=== PATIENT | male | born 1955 | race Caucasian/White ===

== ENCOUNTER 2017-05-05 12:55 | Emergency (ER) | payer OTHER ==
[~2017-05-05] VITALS: Ht 165.1 cm; Wt 68.0 kg
[~2017-05-05 12:55] MED LIST: ASPI325T PO; ATOR40TA PO; ENAL10TA7 PO; HYDR-2768 PO; HYDR25TA35 PO; LANTUS2P SC; METF500 PO; VERA120T3 PO
[2017-05-05 13:01] VITALS: BP 204/101; PULSE 113; RESP 20; TEMP 99.8; O2SAT 85
[2017-05-05] MEDS ORDERED: cloNIDine HCL 0.1 MG TAB PO ONE (13:45)
[2017-05-05] MEDS ORDERED: VERA120T3 PO (13:46)
[2017-05-05] MEDS ORDERED: IBUP1TAB7 PO (13:46)
[2017-05-05] MEDS ORDERED: HYDR12.57 PO (13:46)
[2017-05-05] MEDS ORDERED: SITA50 PO (13:46)
[2017-05-05] MEDS ORDERED: METF1000 PO (13:46)
--- NOTE | 2017-05-05 13:46 | PD ---
HPI Chief Complaint: Cold / Flu Symptoms Time Seen by Provider: 13:42 Travel History International Travel<30 days: No Contact w/Intl Traveler<30days: No Traveled to known affect area: No History of Present Illness HPI This 62-year-old male says he has not felt well for a couple of days. He's had a sore throat and cough. He has myalgias and generalized fatigue. He's been sleeping a lot. He is not aware of fever. He smokes occasionally area he has a history of hypertension. He was on verapamil twice a day but he cut back to once a day because he started taking beet root and thought that would decrease his need for verapamil. He is not having chest pain. PFSH Past Medical History Cancer: No Cardiovascular Problems: Yes Cerebrovascular Accident: Yes (X2) Diabetes: Yes Diminished Hearing: No Hypertension: Yes Musculoskeletal: No Immunizations Current: Yes Past Surgical History Other Surgery: Yes (NOSE REPAIR, STENTS IN LEGS AFTER STROKE) Social History Alcohol Use: No Tobacco Use: Yes (10 cig/day) Substance Use: No Allergies-Medications (Allergen,Severity, Reaction): Coded Allergies: No Known Allergies (Unverified Adverse Reaction, Unknown, 05/05/17) Reported Meds & Prescriptions Reported Meds & Active Scripts Active Reported Ibuprofen 800 Mg Tab 800 Mg PO QID Hydrochlorothiazide 12.5 Mg Cap 12.5 Mg PO DAILY Verapamil (Verapamil HCl) 120 Mg Tab 120 Mg PO BID Januvia (Sitagliptin Phosphate) 50 Mg Tab 50 Mg PO DAILY Metformin (Metformin HCl) 1,000 Mg Tab 1,000 Mg PO BIDPC Review of Systems General / Constitutional: Positive: Chills, No: Fever Eyes: No: Diploplia, Blurred Vision HENT: Positive: Sore Throat, No: Headaches, Vertigo Cardiovascular: No: Chest Pain or Discomfort, Palpitations Respiratory: Positive: Cough, No: Shortness of Breath Gastrointestinal: No: Vomiting, Diarrhea Genitourinary: No: Urgency, Frequency Musculoskeletal: Positive: Myalgias Skin: No Rash Neurologic: Positive: Weakness Endocrine: No: Heat Intolerance Hematologic/Lymphatic: No: Easy Bruising Physical Exam Narrative GENERAL: Well-developed male SKIN: Focused skin assessment warm/dry. HEAD: Atraumatic. Normocephalic. EYES: Pupils equal and round. No scleral icterus. No injection or drainage. ENT: No nasal bleeding or discharge. Mucous membranes pink and moist. NECK: Trachea midline. No JVD. CARDIOVASCULAR: Regular rate and rhythm. No murmur appreciated. RESPIRATORY: No accessory muscle use. There are a few basilar rales. Breath sounds equal bilaterally. GASTROINTESTINAL: Abdomen soft, non-tender, nondistended. Hepatic and splenic margins not palpable. MUSCULOSKELETAL: No obvious deformities. No clubbing. No cyanosis. No edema. NEUROLOGICAL: Awake and alert. No obvious cranial nerve deficits. Motor grossly within normal limits. Normal speech. PSYCHIATRIC: Appropriate mood and affect; insight and judgment normal. Data Data Last Documented VS Vital Signs Date Time Temp Pulse Resp B/P (MAP) Pulse Ox O2 Delivery O2 Flow Rate FiO2 05/05/17 14:45 88 18 162/86 (111) 97 Nasal Cannula 2.00 05/05/17 13:01 99.8 Orders Orders Influenzae A/B Antigen (05/05/17 13:43) Chest, Single Ap (05/05/17 13:43) Clonidine (Catapres) (05/05/17 13:45) Electrocardiogram (05/05/17 14:10) Complete Blood Count With Diff (05/05/17 14:10) Comprehensive Metabolic Panel (05/05/17 14:10) Troponin I (05/05/17 14:10) B-Type Natriuretic Peptide (05/05/17 14:10) Furosemide Inj (Lasix Inj) (05/05/17 14:15) Labs Laboratory Tests Test 05/05/17 14:42 White Blood Count 5.4 TH/MM3 Red Blood Count 4.49 MIL/MM3 Hemoglobin 13.2 GM/DL Hematocrit 39.7 % Mean Corpuscular Volume 88.4 FL Mean Corpuscular Hemoglobin 29.3 PG Mean Corpuscular Hemoglobin Concent 33.2 % Red Cell Distribution Width 13.0 % Platelet Count 148 TH/MM3 Mean Platelet Volume 8.6 FL Neutrophils (%) (Auto) 85.1 % Lymphocytes (%) (Auto) 6.2 % Monocytes (%) (Auto) 8.1 % Eosinophils (%) (Auto) 0.1 % Basophils (%) (Auto) 0.5 % Neutrophils # (Auto) 4.7 TH/MM3 Lymphocytes # (Auto) 0.3 TH/MM3 Monocytes # (Auto) 0.4 TH/MM3 Eosinophils # (Auto) 0.0 TH/MM3 Basophils # (Auto) 0.0 TH/MM3 CBC Comment DIFF FINAL Differential Comment Blood Urea Nitrogen 16 MG/DL Creatinine 0.96 MG/DL Random Glucose 144 MG/DL Total Protein 6.4 GM/DL Albumin 2.6 GM/DL Calcium Level 8.3 MG/DL Alkaline Phosphatase 138 U/L Aspartate Amino Transf (AST/SGOT) 49 U/L Alanine Aminotransferase (ALT/SGPT) 32 U/L Total Bilirubin 0.5 MG/DL Sodium Level 137 MEQ/L Potassium Level 5.2 MEQ/L Chloride Level 103 MEQ/L Carbon Dioxide Level 27.5 MEQ/L Anion Gap 7 MEQ/L Estimat Glomerular Filtration Rate 79 ML/MIN Troponin I 0.10 NG/ML B-Type Natriuretic Peptide 1197 PG/ML MDM Medical Decision Making Medical Screen Exam Complete: Yes Emergency Medical Condition: Yes Medical Record Reviewed: Yes Differential Diagnosis Differential includes viral syndrome, CHF, COPD Narrative Course Chest x-ray shows enlarged heart and increased interstitial fluid. His BNP is over thousand. His troponin is 0.10. Impression is congestive heart failure. On further questioning the patient does think that he's had this before and has been on Lasix in the past though he is not on it now.Told the patient he should be admitted to the hospital for further evaluation but he is adamant that he cannot stay at this time. His potassium is 5.2. He will be released on Lasix by recommend give him a potassium supplement because of his elevation. I have encouraged him to follow up with Dr. Jared Porter as soon as possible or return to the ER if any problem Diagnosis Primary Impression: CHF (congestive heart failure) Scripts Furosemide (Lasix) 40 Mg Tab 40 MG PO DAILY, #30 TAB 0 Refills Prov: Carlos Manuel Montes De Oca MD 05/05/17 Disposition: DISCHARGE HOME Condition: Stable Carlos Manuel Montes De Oca MD May 05, 2017 13:46
--- NOTE | 2017-05-05 14:08 | RADRPT ---
EXAM DATE/TIME: 05/05/2017 13:52 [facility] COMPARISON: CHEST SINGLE AP, February 13, 2016, 17:04. INDICATIONS : Flu like symptoms. MEDICAL HISTORY : Stroke. Hypertension Diabetes mellitus type II. SURGICAL HISTORY : None. ENCOUNTER: Initial ACUITY: 3 days PAIN SCORE: 0/10 LOCATION: Bilateral chest FINDINGS: A single view of the chest demonstrates the lungs to be symmetrically aerated without evidence of mas s, infiltrate or effusion. There is cardiomegaly and interstitial densities. The cardiomediastinal c ontours are unremarkable. Osseous structures are intact. CONCLUSION: 1. Cardiomegaly and interstitial densities could be interstitial edema versus interstitial infiltrate . Marcel Jones MD on May 05, 2017 at 14:05 Board Certified Radiologist. This report was verified electronically.
[2017-05-05] MEDS ORDERED: FUROSEMIDE 40 MG/4 ML VIAL IV PUSH ONE (14:15)
[2017-05-05 14:45] VITALS: BP 162/86; PULSE 88; RESP 18; O2SAT 97
[2017-05-05 14:58] LABS: CHLORIDE 103 MEQ/L (98-107); SODIUM (NA) 137 MEQ/L (136-145)
[2017-05-05 15:00] LABS: AUTOMATED NEUTROPHIL # 4.7 TH/MM3 (1.8-7.7); BASOPHIL % 0.5 % (0.0-2.0); EOSINOPHIL % 0.1 % (0.0-4.0); HEMATOCRIT 39.7 % (39.0-51.0); HEMOGLOBIN 13.2 GM/DL (13.0-17.0); LYMPH % 6.2 % (9.0-44.0); LYMPHOCYTE # 0.3 TH/MM3 (1.0-4.8); MEAN CELL VOLUME 88.4 FL (80.0-100.0); MEAN CORPUSCULAR HEMOGLOBIN 29.3 PG (27.0-34.0); MEAN CORPUSCULAR HGB CONC 33.2 % (32.0-36.0); MEAN PLATELET VOLUME 8.6 FL (7.0-11.0); MONO % 8.1 % (0.0-8.0); MONOCYTE # 0.4 TH/MM3 (0-0.9); NEUT % 85.1 % (16.0-70.0); PLATELET COUNT 148 TH/MM3 (150-450); RED BLOOD COUNT 4.49 MIL/MM3 (4.50-5.90); WHITE BLOOD COUNT 5.4 TH/MM3 (4.0-11.0)
[2017-05-05 15:02] LABS: ALBUMIN 2.6 GM/DL (3.4-5.0); CALCIUM 8.3 MG/DL (8.5-10.1)
[2017-05-05 15:03] LABS: BICARBONATE 27.5 MEQ/L (21.0-32.0); BLOOD UREA NITROGEN 16 MG/DL (7-18); GLUCOSE,RANDOM 144 MG/DL (74-106)
[2017-05-05 15:05] LABS: ALT (GPT) 32 U/L (12-78); AST (GOT) 49 U/L (15-37)
[2017-05-05 15:06] LABS: CREATININE 0.96 MG/DL (0.60-1.30); GLOMERULAR FILTRATION RATE 79 ML/MIN (>89)
[2017-05-05 15:07] LABS: TOTAL BILIRUBIN ADULT 0.5 MG/DL (0.2-1.0); TOTAL PROTEIN 6.4 GM/DL (6.4-8.2)
[2017-05-05 15:08] LABS: ALKALINE PHOSPHATASE 138 U/L (45-117)
[2017-05-05] MEDS ORDERED: FURO1TAB60 PO (15:35)
[2017-05-05 15:48] VITALS: BP 173/85
--- NOTE | 2017-05-06 13:35 | EKG ---
Date Performed: 05/05/2017 Time Performed: 14:33:43 PTAGE: 62 years EKG: Sinus rhythm LEFT ATRIAL ABNORMALITY POOR R-WAVE PROGRESSION CANNOT EXCLUDE ANTEROSEPTAL INFARCT ST-T WAVE CHANGE S MAY BE SECONDARY TO LEFT VENTRICULAR HYPERTROPHY, CANNOT EXCLUDE ISCHEMIA ABNORMAL ECG Compared to PREVIOUS TRACING , there is variation in the ST-T abnormalities. Clinical correlation is needed. PREVIOUS TRACIN02/13/2016 16.45 DOCTOR: Steve Haro Interpretating Date/Time 05/06/2017 13:18:46
== END 2017-05-05 15:52 | disposition home or self-care (01) ==
LOC: PHED 12:55
DX: I50.9 Heart failure, unspecified (principal); R07.0 Pain in throat; R05 Cough; M79.1 Myalgia; R94.31 Abnormal electrocardiogram [ECG] [EKG]; I10 Essential (primary) hypertension; E11.9 Type 2 diabetes mellitus without complications; F17.200 Nicotine dependence, unspecified, uncomplicated; Z79.84 Long term (current) use of oral hypoglycemic drugs
CPT/HCPCS: 71010; 80053; 83880; 84484; 85025; 87804; 93005; 96374; 99285; J1940

== ENCOUNTER 2017-07-24 15:35 | Emergency (ER) | payer SELFPAY ==
[~2017-07-24] VITALS: Ht 162.6 cm; Wt 64.8 kg
[~2017-07-24 15:35] MED LIST changes: -ASPI325T PO; -ATOR40TA PO; -ENAL10TA7 PO; +FURO1TAB60 PO; -HYDR-2768 PO; +HYDR12.57 PO; -HYDR25TA35 PO; +IBUP1TAB7 PO; -LANTUS2P SC; +METF1000 PO; -METF500 PO; +SITA50 PO
[2017-07-24 15:46] VITALS: BP 223/107; PULSE 98; RESP 16; TEMP 97.5; O2SAT 97
[2017-07-24] MEDS ORDERED: MONT4CHW2 CHEW (16:02)
[2017-07-24] MEDS ORDERED: ASPI-183 PO (16:02)
--- NOTE | 2017-07-24 16:37 | RADRPT ---
EXAM DATE/TIME: 07/24/2017 16:25 [facility] COMPARISON: No previous studies available for comparison. INDICATIONS : Right proximal tibia pain after scrapping it on a piece of metal. MEDICAL HISTORY : Venous insufficiency. Cardiovascular problems. Cerebrovascular accident. Diabetic. Hypertension . SURGICAL HISTORY : Nasal surgery. Lower extremity stent. ENCOUNTER: Initial ACUITY: 1 day PAIN SCORE: 9/10 LOCATION: Right tibia FINDINGS: Two view examination of the right tibia demonstrates no evidence of fracture or dislocation. Bony mi neralization is normal. The soft tissue structures are intact. CONCLUSION: Unremarkable examination of the right tibia. Soft tissue defect superficial to the tibia proximally without underlying bony injury or foreign body. Shant Guerra MD on July 24, 2017 at 16:36 Board Certified Radiologist. This report was verified electronically.
--- NOTE | 2017-07-24 17:12 | PD ---
HPI Chief Complaint: Laceration/Skin Injury Time Seen by Provider: 16:08 Travel History International Travel<30 days: No Contact w/Intl Traveler<30days: No Traveled to known affect area: No History of Present Illness HPI 52-year-old male here with laceration to his right lower extremity. He reports the area was cut by a sharp edge of a broken toilet in his home 3 hours ago. He denies paresthesia or weakness of the extremity. Tetanus immunization is up- to-date. He has mild pain at the site of laceration. No aggravating or alleviating factors. [facility] Past Medical History Medical History: Denies Significant Hx Cancer: No Cardiovascular Problems: Yes Cerebrovascular Accident: Yes Diabetes: Yes Patient Takes Glucophage: Yes Diminished Hearing: No Hypertension: Yes Immunizations Current: Yes Past Surgical History Other Surgery: Yes (NOSE REPAIR, STENTS IN LEGS AFTER STROKE, carotid artery stent) Social History Alcohol Use: No Tobacco Use: Yes (05/27 ppd) Substance Use: No Allergies-Medications (Allergen,Severity, Reaction): Coded Allergies: No Known Allergies (Unverified Adverse Reaction, Unknown, 07/24/17) Reported Meds & Prescriptions Reported Meds & Active Scripts Active Reported Singulair (Montelukast Sodium) 4 Mg Chew Unknown Dose CHEW HS Aspirin 325 Mg Tab 325 Mg PO DAILY Hydrochlorothiazide 12.5 Mg Cap 12.5 Mg PO DAILY Verapamil (Verapamil HCl) 120 Mg Tab 120 Mg PO BID Januvia (Sitagliptin Phosphate) 50 Mg Tab 50 Mg PO DAILY Metformin (Metformin HCl) 1,000 Mg Tab 1,000 Mg PO BIDPC Review of Systems Except as stated in HPI: all other systems reviewed are Neg Physical Exam Narrative GENERAL: Alert and well-appearing 62-year-old male SKIN: Warm and dry. Right lower extremity: 2.5 CM laceration right lower extremity over the anterior aspect of the proximal tibia. About 3 finger widths from the knee. I do not suspect joint involvement. No tendon or vascular injury identified. No foreign body. Patient is able to flex and extend the knee without difficulty. Normal Sensation distally. 2+ dorsal pedis pulse. Brisk cap refill HEAD: Normocephalic. EYES: No injection or drainage. NECK: Supple CARDIOVASCULAR: Regular rate and rhythm without murmurs, gallops, or rubs. RESPIRATORY: Breath sounds equal bilaterally. No accessory muscle use. MUSCULOSKELETAL: No cyanosis, or edema. Data Data Last Documented VS Vital Signs Date Time Temp Pulse Resp B/P (MAP) Pulse Ox O2 Delivery O2 Flow Rate FiO2 07/24/17 15:46 97.5 98 16 223/107 (145) 97 Orders Orders Tibia/Fibula (Ap/Lat) (07/24/17 ) MDM Medical Decision Making Medical Screen Exam Complete: Yes Emergency Medical Condition: Yes Differential Diagnosis Laceration, tendon or fascial injury, retained foreign body Narrative Course 62-year-old male here with laceration to the right lower extremity. Extremity is neurovascularly intact. X-ray is negative for foreign body. Laceration repair performed. Patient tolerated procedure well. Procedures Procedure Narrative LACERATION LOCATION: Right lower extremity proximal anterior tibia LENGTH: 2.5 CM NUMBER OF STITCHES/KRISTIN: 6 REPAIR: The area of the laceration was prepped with Betadine and sterilely draped. The laceration was infiltrated with 1% lidocaine with epi. The wound was copiously irrigated and explored without evidence of foreign body, tendon injury or neurovascular injury. The wound was closed using 4-0 Prolene. This was a single layer repair. A sterile dressing was applied. The patient was advised to keep the dressing clean and dry. Patient tolerated the procedure well. Diagnosis Primary Impression: Laceration of right lower extremity Qualified Codes: S81.811A - Laceration without foreign body, right lower leg, initial encounter Referrals: Primary Care Physician Additional Instructions: Sutures need to be removed in 10 days. Wash the area daily with soap and water. Lila Mosqueda Jul 24, 2017 17:12
== END 2017-07-24 17:25 | disposition home or self-care (01) ==
LOC: PHEFT 15:35
DX: S81.811A Laceration without foreign body, right lower leg, initial encounter (principal); W25.XXXA Contact with sharp glass, initial encounter; E11.9 Type 2 diabetes mellitus without complications; I10 Essential (primary) hypertension; F17.210 Nicotine dependence, cigarettes, uncomplicated; Z86.73 Personal history of transient ischemic attack (TIA), and cerebral infarction without residual deficits
CPT/HCPCS: 12001; 73590

== ENCOUNTER 2017-08-04 18:17 | Emergency (ER) | payer SELFPAY ==
[~2017-08-04] VITALS: Ht 162.6 cm; Wt 66.7 kg
[~2017-08-04 18:17] MED LIST changes: +ASPI-183 PO; -FURO1TAB60 PO; -IBUP1TAB7 PO; +MONT4CHW2 CHEW
[2017-08-04 18:21] VITALS: BP 206/113; PULSE 100; RESP 16; TEMP 98.1; O2SAT 98
--- NOTE | 2017-08-04 18:27 | PD ---
HPI Chief Complaint: Wound/Suture/Staple Re-Check Time Seen by Provider: 18:25 Travel History International Travel<30 days: No Contact w/Intl Traveler<30days: No Traveled to known affect area: No History of Present Illness HPI 62-year-old male that presents to the ED for evaluation of suture removal. Patient was seen here about 2 weeks ago for a laceration she suffered to his right cook. Patient had 6 sutures placed and has been having no issues since. Per patient he is ready for them to come on. No other medical issues. No new injuries. No fevers chills or sweats. No redness. PFSH Past Medical History Cancer: No Cardiovascular Problems: Yes Cerebrovascular Accident: Yes Diabetes: Yes Diminished Hearing: No Hypertension: Yes Immunizations Current: Yes ?: Not Past Surgical History Other Surgery: Yes (NOSE REPAIR, STENTS IN LEGS AFTER STROKE, carotid artery stent) Social History Alcohol Use: No Tobacco Use: Yes (05/27 ppd) Substance Use: No Allergies-Medications (Allergen,Severity, Reaction): Coded Allergies: No Known Allergies (Unverified Adverse Reaction, Unknown, 07/24/17) Reported Meds & Prescriptions Reported Meds & Active Scripts Active Reported Singulair (Montelukast Sodium) 4 Mg Chew Unknown Dose CHEW HS Aspirin 325 Mg Tab 325 Mg PO DAILY Hydrochlorothiazide 12.5 Mg Cap 12.5 Mg PO DAILY Verapamil (Verapamil HCl) 120 Mg Tab 120 Mg PO BID Januvia (Sitagliptin Phosphate) 50 Mg Tab 50 Mg PO DAILY Metformin (Metformin HCl) 1,000 Mg Tab 1,000 Mg PO BIDPC Review of Systems Except as stated in HPI: all other systems reviewed are Neg Physical Exam Narrative GENERAL: SKIN: Warm and dry. Patient has a well-healed laceration on the mid cook. Does appear to be somewhat to have been dehisced even with the sutures in place. Patient does have some scabbing noted. 6 sutures noted. No sign of erythema or mass or infection. HEAD: Atraumatic. Normocephalic. EYES: Pupils equal and round. No scleral icterus. No injection or drainage. ENT: No nasal bleeding or discharge. Mucous membranes pink and moist. NECK: Trachea midline. No JVD. CARDIOVASCULAR: Regular rate and rhythm. RESPIRATORY: No accessory muscle use. Clear to auscultation. Breath sounds equal bilaterally. GASTROINTESTINAL: Abdomen soft, non-tender, nondistended. Hepatic and splenic margins not palpable. MUSCULOSKELETAL: Extremities without clubbing, cyanosis, or edema. No obvious deformities. NEUROLOGICAL: Awake and alert. No obvious cranial nerve deficits. Motor grossly within normal limits. Five out of 5 muscle strength in the arms and legs. Normal speech. PSYCHIATRIC: Appropriate mood and affect; insight and judgment normal. Data Data Last Documented VS Vital Signs Date Time Temp Pulse Resp B/P (MAP) Pulse Ox O2 Delivery O2 Flow Rate FiO2 08/04/17 18:21 98.1 100 16 206/113 (144) 98 Orders Orders Ed Discharge Order (08/04/17 18:33) MDM Medical Decision Making Medical Screen Exam Complete: Yes Emergency Medical Condition: Yes Medical Record Reviewed: Yes Differential Diagnosis suture removal vs wound check vs normal exam Narrative Course 62-year-old male that presents to the ED for evaluation of suture removal. Patient was properly examined and was found to have signs and symptoms consistent appears to be suture removal. All 6 sutures were removed by me using a suture removal kit. Patient tolerated procedure well. Wound did dehisce somewhat with this appears to be already from the healing. I put a Steri-Strip on it. To help keep this under control. Patient was told to continue doing wound care. Follow with PCP. See ED worsening symptoms. Blood pressure was found to be high here and this is likely secondary to him not taking his blood pressure medication until about 15 minutes before coming. Patient has no symptoms. I spoke with my attending who agrees the patient can go home. Diagnosis Primary Impression: Visit for suture removal Patient Instructions: General Instructions Additional Instructions: Wound care daily with soap and water. You can apply bandaid if needed. Meoderma OTC for scarring if needed. Avoid sun exposure for 2 months as the sun could make scar darker and more noticeable. See ED if worst. Med/Other Pt SpecificInfo: No Change to Meds, Wound Care Disposition: DISCHARGE HOME Condition: Stable Alli Rawls Aug 04, 2017 18:27
[2017-08-04 18:39] VITALS: BP 210/110
== END 2017-08-04 18:40 | disposition home or self-care (01) ==
LOC: PHEFT 18:17
DX: Z48.02 Encounter for removal of sutures (principal)
CPT/HCPCS: 99281

== ENCOUNTER 2018-04-01 12:10 | Inpatient (IN) ==
--- NOTE | 2018-04-01 12:33 | ED ---
HPI General Chief complaint: Stroke Alert Stated complaint: stroke alert Time Seen by Provider: 04/01/18 12:15 Source: patient Mode of arrival: ambulatory Limitations: no limitations History of Present Illness HPI narrative: 63-year-old male patient with history of hypertension, presents to the ER today brought in by EMS as a stroke alert. Apparently patient had driven himself to [place] and felt like something was not right about half an hour prior to neighbors calling EMS, and he was found in his car sitting and disoriented, having difficulty speaking according to EMS. He is now awake, alert, oriented in the ER and able to speak. He states that he is not sure what happened. He just did not feel right. He denies any numbness or weakness. He denies any chest pains, or other issues. Related Data Home Medications Medication Instructions Recorded Confirmed aspirin 325 mg PO DAILY 04/01/18 04/01/18 carvedilol [Coreg] 3.125 mg PO BID 04/01/18 04/01/18 hydrochlorothiazide 25 mg PO DAILY 04/01/18 04/01/18 metformin 500 mg PO BID 04/01/18 04/01/18 Allergies Allergy/AdvReac Type Severity Reaction Status Date / Time No Known Allergies Allergy Verified 04/01/18 12:15 Review of Systems ROS: all other systems reviewed are negative [facility] Medical History Medical History Diabetes (Acute) HTN (hypertension) (Acute) No significant past surgical history (Acute) Stroke (Acute) Social History Social History Substance History: No History of Abuse Second Hand Smoke Exposure: No Smoking Status: Never smoker How Often Do You Have a Drink Containing Alcohol: Never Recent Travel in [facility] within the Last 8 Weeks: No Recent Out of Country Travel within the Last 8 Weeks: No Exam Narrative Exam Narrative: GENERAL: Well-developed elderly white male patient currently in mild distress. Awake and oriented x3. SKIN: Focused skin assessment warm/dry. HEAD: Atraumatic. Normocephalic. EYES: Pupils equal and round. No scleral icterus. No injection or drainage. ENT: No nasal bleeding or discharge. Mucous membranes pink and moist. NECK: Trachea midline. No JVD. CARDIOVASCULAR: Regular rate and rhythm. No murmur appreciated. RESPIRATORY: No accessory muscle use. Clear to auscultation. Breath sounds equal bilaterally. GASTROINTESTINAL: Abdomen soft, non-tender, nondistended. Hepatic and splenic margins not palpable. MUSCULOSKELETAL: No obvious deformities. No clubbing. No cyanosis. No edema. NEUROLOGICAL: Awake and alert. No obvious cranial nerve deficits. Motor grossly within normal limits. Normal speech. No pronator drift. PSYCHIATRIC: Appropriate mood and affect; insight and judgment normal. Course Initial Documented Vital Signs Temperature 97.9 F 04/01/18 12:10 Pulse Rate 66 04/01/18 12:10 Respiratory Rate 16 04/01/18 12:10 Blood Pressure 221/106 H 04/01/18 12:10 Pulse Oximetry 96 04/01/18 12:10 Last Documented Vital Signs Temperature 97.8 F 04/01/18 14:03 Pulse Rate 68 04/01/18 14:03 Respiratory Rate 16 04/01/18 14:03 Blood Pressure 148/64 H 04/01/18 14:03 Pulse Oximetry 98 04/01/18 14:03 NIH Stroke Scale NIH Stroke Scale Level of Consciousness: 0-Alert Orientation Questions: 0-Answers both correct Responds to Commands: 0-Both tasks correct Gaze Eye Movement: 0-Horizontal movement WNL Visual Waller: 0-No visual field defect Facial Movement: 0-Normal Motor Functions Arm LEFT: 0-No drift Motor Functions Arm RIGHT: 0-No drift Motor Functions Leg LEFT: 0-No drift Motor Functions Leg RIGHT: 0-No drift Limb Ataxia: 0-No ataxia Sensory Loss: 0-No sensory loss Best Language: 0-Normal Articulation: 0-Normal Extinction or Inattention Sensory: 0-Absent Total: 0 Medical Decision Making [facility] Narrative Medical decision making narrative: His neurological symptoms have completely resolved by the time he is in the ER. His blood pressure was fairly elevated and a Cardene drip was initiated in the ER. His CAT scan of the brain did not show any signs of acute intracranial processes. He was evaluated by Dr. Mckinley and he had recommended a CTA as well and that was all negative as well. However, he signs of previous strokes. Aspirin was given as per discussion with Dr. Mckinley. His lab work returned showing significant elevation of troponin of 0.17. His EKG shows inverted T waves in inferior leads and V5 and V6. However, the patient is not having any chest pain. The case had been discussed with Dr. Morrell who recommends further medical admission. Case is discussed with Dr. Tierney for admission. He is not a TPA candidate secondary to the fact that his symptoms have cleared up. Aggregate critical care time was 35 minutes. Time to perform other separately billable procedures was not included in the critical care time. My time did not include minutes spent treating any other patients simultaneously or on activities that did not directly contribute to the patient's treatment. The services I provided to this patient were to treat and/or prevent clinically significant deterioration that could result in: CVA, ICH, hypertensive emergency , I provided critical care services requiring my management, as noted below: Chart data review, documentation time, medication orders and management, vital sign assessments/reviewing monitor data, ordering and reviewing lab tests, ordering and interpreting/reviewing x-rays and diagnostic studies, care of the patient and discussion of the patient with the admitting physicians. Medical Screen Exam Complete: Yes Emergency Medical Condition: Yes Differential Diagnosis Differential Diagnosis: CVA versus TIA versus ICH Lab Data Lab results reviewed: Yes I reviewed the patient's lab results. Result diagrams: 04/01/18 12:10 04/01/18 12:10 Lab Results 04/01/18 04/01/18 04/01/18 Range/Units 12:10 12:10 12:10 WBC 7.9 (4.0-11.0) th/mm3 RBC 4.70 (4.50-5.90) mil/mm3 Hgb 14.8 (13.0-17.0) gm/dL POC Hgb (Calc) (13.0-17.0) g/dL Hct 43.2 (39.0-51.0) % POC Hct (39-51.0) % MCV 92.0 (80.0-100.0) fL MCH 31.4 (27.0-34.0) pg MCHC 34.2 (32.0-36.0) % RDW 13.7 (11.6-17.2) % Plt Count 176 (150-450) th/mm3 MPV 7.9 (7.0-11.0) fL Neut % (Auto) 66.1 (16.0-70.0) % Lymph % (Auto) 22.1 (9.0-44.0) % King % (Auto) 9.6 H (0.0-8.0) % Eos % (Auto) 1.7 (0.0-4.0) % Baso % (Auto) 0.5 (0.0-2.0) % Neut # (Auto) 5.3 (1.8-7.7) th/mm3 Lymph # (Auto) 1.8 (1.0-4.8) th/mm3 King # (Auto) 0.8 (0.0-0.9) th/mm3 Eos # (Auto) 0.1 (0.0-0.4) th/mm3 Baso # (Auto) 0.0 (0.0-0.2) th/mm3 WBC Differential . Differential Comment Auto diff final PT 9.9 (9.8-11.6) sec INR 1.0 Ratio APTT 25.1 (23.4-31.7) sec POC Sodium (137-144) mmol/L Sodium 135 L (136-145) meq/L POC Potassium (3.6-5.0) mmol/L Potassium 4.0 (3.5-5.1) meq/L POC Chloride (102-111) mmol/L Chloride 98 (98-107) meq/L Carbon Dioxide 27.5 (21.0-32.0) meq/L Anion Gap 10 (5-15) meq/L POC BUN (5-21) mg/dL BUN 19 H (7-18) mg/dL Creatinine 1.13 (0.60-1.30) mg/dL POC Creatinine (0.6-1.3) mg/dL Estimated GFR 65 L (>89) mL/min POC Glucose (68-110) mg/dL Random Glucose 189 H (74-106) mg/dL Calcium 9.1 (8.5-10.1) mg/dL Total Creatine Kinase 84 (39-308) U/L Troponin I 0.17 H (0.02-0.05) ng/mL Urine Color (Yellw/Straw) Urine Clarity (Clear) Urine pH (5.0-8.5) Ur Specific [place] (1.002-1.035) Urine Protein (Neg-Trace) mg/dL Urine Glucose (UA) (Negative) mg/dL Urine Ketones (Negative) mg/dL Urine Occult Blood (Negative) Urine Nitrate (Negative) Urine Bilirubin (Negative) Urine Urobilinogen (Less than 2) mg/dL Ur Leukocyte Esterase (Negative) Urine RBC (0-3) /hpf Urine WBC (0-5) /hpf Micro UA Comment Ur Microscopic Review Urine Culture Comments 04/01/18 04/01/18 Range/Units 12:10 13:10 WBC (4.0-11.0) th/mm3 RBC (4.50-5.90) mil/mm3 Hgb (13.0-17.0) gm/dL POC Hgb (Calc) 14.3 (13.0-17.0) g/dL Hct (39.0-51.0) % POC Hct 42.0 (39-51.0) % MCV (80.0-100.0) fL MCH (27.0-34.0) pg MCHC (32.0-36.0) % RDW (11.6-17.2) % Plt Count (150-450) th/mm3 MPV (7.0-11.0) fL Neut % (Auto) (16.0-70.0) % Lymph % (Auto) (9.0-44.0) % King % (Auto) (0.0-8.0) % Eos % (Auto) (0.0-4.0) % Baso % (Auto) (0.0-2.0) % Neut # (Auto) (1.8-7.7) th/mm3 Lymph # (Auto) (1.0-4.8) th/mm3 King # (Auto) (0.0-0.9) th/mm3 Eos # (Auto) (0.0-0.4) th/mm3 Baso # (Auto) (0.0-0.2) th/mm3 WBC Differential Differential Comment PT (9.8-11.6) sec INR Ratio APTT (23.4-31.7) sec POC Sodium 135 L (137-144) mmol/L Sodium (136-145) meq/L POC Potassium 4.1 (3.6-5.0) mmol/L Potassium (3.5-5.1) meq/L POC Chloride 94 L (102-111) mmol/L Chloride (98-107) meq/L Carbon Dioxide (21.0-32.0) meq/L Anion Gap (5-15) meq/L POC BUN 18 (5-21) mg/dL BUN (7-18) mg/dL Creatinine (0.60-1.30) mg/dL POC Creatinine 1.0 (0.6-1.3) mg/dL Estimated GFR (>89) mL/min POC Glucose 184 H (68-110) mg/dL Random Glucose (74-106) mg/dL Calcium (8.5-10.1) mg/dL Total Creatine Kinase (39-308) U/L Troponin I (0.02-0.05) ng/mL Urine Color Straw (Yellw/Straw) Urine Clarity Clear (Clear) Urine pH 7.0 (5.0-8.5) Ur Specific [place] 1.013 (1.002-1.035) Urine Protein 100 H (Neg-Trace) mg/dL Urine Glucose (UA) 50 (Negative) mg/dL Urine Ketones Negative (Negative) mg/dL Urine Occult Blood Small H (Negative) Urine Nitrate Negative (Negative) Urine Bilirubin Negative (Negative) Urine Urobilinogen Less than 2 (Less than 2) mg/dL Ur Leukocyte Esterase Negative (Negative) Urine RBC 2 (0-3) /hpf Urine WBC Less than 1 (0-5) /hpf Micro UA Comment Culture not ind Ur Microscopic Review Not Reportable Urine Culture Comments Culture not ind Imaging Data Attestation: I personally reviewed and interpreted this imaging study as follows : Radiologist's impression: Head CT 04/01/18 12:15 CONCLUSION: 1. Chronic ischemic changes and old right cerebellar infarct. 2. No evidence of acute infarct, hemorrhage, mass or edema. Report was called by Dr. Lucas to the ordering ED physician at [phone].] Head CTA 04/01/18 12:15 CONCLUSION: No evidence of proximal thrombus or significant steno-occlusive disease. Report was called by [Shayy to Dr. Mckinley at [phone]. ] Neck CTA 04/01/18 12:15 CONCLUSION: 1. Moderate calcified and noncalcified plaque in the left carotid bifurcation with moderate narrowing at the origin of the internal carotid artery measuring 50%. 2. Widely patent right carotid bifurcation status post endarterectomy. 3. Symmetric patent vertebral arteries. ECG Data Attestation: I personally reviewed and interpreted this ECG as follows: Interpretation: EKG shows normal sinus rhythm with a rate of 66 bpm. He has T wave inversions notable in the inferior leads of V5 and V6. No acute ST elevations identified. Discharge Plan Discharge Disposition Patient Disposition: 30 Still Patient Discharge Condition Condition: Critical Discharge Details Anticipated Discharge Date: 04/01/18 Diagnosis: Transient cerebral ischemia, Hypertensive emergency, Elevated troponin Physicians Team ED Provider: Telly Peterson Primary Care Provider: UNKNOWN, Rxs /Orders / Referrals /Forms Prescriptions: No Action metformin 500 mg Tablet 500 mg PO BID RF: 0 aspirin 325 mg Tablet 325 mg PO DAILY RF: 0 carvedilol [Coreg] 3.125 mg Tablet 3.125 mg PO BID RF: 0 hydrochlorothiazide 25 mg Tablet 25 mg PO DAILY RF: 0 Status ED Status: With Doctor
--- NOTE | 2018-04-01 12:41 | CT ---
EXAM DATE: 04/01/2018 12:31 PM EST AGE/SEX: 63 years / Male INDICATIONS: Confusion CLINICAL DATA: This is the patient's initial encounter. Patient reports that signs and symptoms have been present for 1 day and indicates a pain score of 0/10. MEDICAL/SURGICAL HISTORY: . Unable to obtain . Unable to obtain RADIATION DOSE: 38.01 CTDI (mGy) COMPARISON: [facility], CT BRAIN W/O CONTRAST, 02/13/2016. . TECHNIQUE: CT of the head without contrast. Using automated exposure control and adjustment of the mA and/or kV according to patient size, radiation dose was kept as low as reasonably achievable to ob tain optimal diagnostic quality images. DICOM format image data is available electronically for revi ew and comparison. FINDINGS: Cerebrum: The ventricles are normal for age. No evidence of midline shift, mass lesion, hemorrhage or acute infarction. No extraaxial fluid collections are seen. Chronic ischemic changes are identifi ed in the basal ganglia, white matter and right frontal lobe. Posterior Fossa: Large area of encephalomalacia is identified in the right cerebellar hemisphere whi ch is stable compared to prior study. There are no characteristic findings of an acute infarct or hem orrhage. Extracranial: The visualized portion of the orbits is intact. Skull: The calvaria is intact. No evidence of skull fracture. CONCLUSION: 1. Chronic ischemic changes and old right cerebellar infarct. 2. No evidence of acute infarct, hemorrhage, mass or edema. Report was called by Dr. Lucas to the ordering ED physician at [phone].] Electronically signed by: Rajan Lucas MD 04/01/2018 12:40 PM EST
[2018-04-01 12:46] LABS: Baso % (Auto) 0.5 % (0.0-2.0); Eos # (Auto) 0.1 th/mm3 (0.0-0.4); Eos % (Auto) 1.7 % (0.0-4.0); Hematocrit 43.2 % (39.0-51.0); Hemoglobin 14.8 gm/dL (13.0-17.0); Lymph # (Auto) 1.8 th/mm3 (1.0-4.8); Lymph % (Auto) 22.1 % (9.0-44.0); Mean Corpuscular HGB Conc 34.2 % (32.0-36.0); Mean Corpuscular Hemoglobin 31.4 pg (27.0-34.0); Mean Platelet Volume 7.9 fL (7.0-11.0); Mono # (Auto) 0.8 th/mm3 (0.0-0.9); Mono % (Auto) 9.6 % (0.0-8.0); Neut # (Auto) 5.3 th/mm3 (1.8-7.7); Neut % (Auto) 66.1 % (16.0-70.0); Platelet Count 176 th/mm3 (150-450); Red Cell Distribution Width 13.7 % (11.6-17.2); White Blood Count 7.9 th/mm3 (4.0-11.0)
[2018-04-01 12:47] LABS: Activated Partial Thrombo Time 25.1 sec (23.4-31.7); Prothrombin Time 9.9 sec (9.8-11.6)
--- NOTE | 2018-04-01 12:47 | CT ---
EXAM DATE: 04/01/2018 12:37 PM EST AGE/SEX: 63 years / Male INDICATIONS: Confusion CLINICAL DATA: This is the patient's initial encounter. Patient reports that signs and symptoms have been present for 1 day and indicates a pain score of 0/10. MEDICAL/SURGICAL HISTORY: . unable to obtain . unable to obtain RADIATION DOSE: 28.24 CTDI (mGy) ; Combined studies COMPARISON: [facility], CT HEAD W/O CONTRAST, 04/01/2018. . TECHNIQUE: Volumetric scanning was performed using a multi-row detector CT scanner during bolus infu amparo of 75 ml nonionic water-soluble contrast as a cumulative dose for multiple exams. The data was post processed with a variety of visualization algorithms including full volume maximum intensity pr ojection, multi-planar sliding thin slab reformation, curved planar reformation, and surface renderin g techniques. Using automated exposure control and adjustment of the mA and/or kV according to patie nt size, radiation dose was kept as low as reasonably achievable to obtain optimal diagnostic quality images. DICOM format image data is available electronically for review and comparison. FINDINGS: There is excellent visualization of the major intracranial arteries out to the second-order branch ve ssels. There is no evidence for aneurysm, vessel truncation or stenosis, and no evidence for vascula r malformation. CONCLUSION: No evidence of proximal thrombus or significant steno-occlusive disease. Report was called by [Shayy to Dr. Mckinley at [phone]. ] Electronically signed by: Rajan Lucas MD 04/01/2018 12:46 PM EST
[2018-04-01 12:54] LABS: Calcium 9.1 mg/dL (8.5-10.1); Carbon Dioxide 27.5 meq/L (21.0-32.0)
--- NOTE | 2018-04-01 12:56 | CT ---
EXAM DATE: 04/01/2018 12:49 PM EST AGE/SEX: 63 years / Male INDICATIONS: Confusion CLINICAL DATA: This is the patient's initial encounter. Patient reports that signs and symptoms have been present for 1 day and indicates a pain score of 0/10. MEDICAL/SURGICAL HISTORY: . Unable to obtain . Unable to obtain RADIATION DOSE: 28.24 CTDI (mGy) ; Combined studies COMPARISON: [facility], CTA CAROTID ARTERIES W 3D RECON, 10/24/2015. . TECHNIQUE: Volumetric scanning was performed using a multirow detector CT scanner during bolus infus ion of 75 ml Omnipaque 350 (iohexol) nonionic water-soluble contrast as a cumulative dose for multip le exams. The data was postprocessed with a variety of visualization algorithms including full-volu me maximum intensity projection, multiplanar sliding thin-slab reformation, curved-planar reformation , and surface-rendering techniques. Using automated exposure control and adjustment of the mA and/or kV according to patient size, radiation dose was kept as low as reasonably achievable to obtain opti mal diagnostic quality images. DICOM format image data is available electronically for review and co mparison. FINDINGS: Aortic Arch: Calcified plaque is seen along the aortic arch. There is focal calcified plaque at the origin of the left common carotid artery and left subclavian artery. There is no evidence of ostial s tenosis. Right Carotid: Widely patent without evidence of significant stenosis. Postsurgical clips from prior endarterectomy are noted. Left Carotid: Eccentric calcified and noncalcified plaque is identified in the left carotid bifurcat ion extending into the proximal internal carotid artery. There is moderate luminal narrowing of appro ximately 50%. Cervical portion of the internal carotid arteries otherwise widely patent. Vertebrals: The vertebral arteries have a symmetric diameter. No stenotic lesions are seen. Percent stenosis is calculated using the diameter of the stenotic region over the diameter of the nor mal distal internal carotid artery. CONCLUSION: 1. Moderate calcified and noncalcified plaque in the left carotid bifurcation with moderate narrowin g at the origin of the internal carotid artery measuring 50%. 2. Widely patent right carotid bifurcation status post endarterectomy. 3. Symmetric patent vertebral arteries. Electronically signed by: Rajan Lucas MD 04/01/2018 12:55 PM EST
[2018-04-01 12:58] LABS: Troponin I 0.17 ng/mL (0.02-0.05)
[2018-04-01] MEDS ORDERED: Aspirin 325 MG Tablet PO ONE (13:03)
[2018-04-01] MEDS: niCARdipine Inj 25 MG in Sodium Chlor 0.9% Inj 240 ML IV.CONT PRN ×5 (13:08→23:35)
[2018-04-01 14:02] LABS: Bilirubin,Urine Negative (Negative); Clarity,Urine Clear (Clear); Color,Urine Straw (Yellw/Straw); Glucose,Urine (UA) 50 mg/dL (Negative); Leukocyte Esterase,Urine Negative (Negative); Nitrite,Urine Negative (Negative); Specific Gravity,Urine 1.013 (1.002-1.035)
--- NOTE | 2018-04-01 16:42 | P.CONCA ---
History of Present Illness Service: Cardiology Consult date: 04/01/18 Requesting Physician: Rolanda Goodrich Reason for Consult: TIA Primary Care Provider: UNKNOWN History of Present Illness: This is a 63-year-old male known to Dr. Simon with a past medical history of hypertension, CVA, smoker and right . He states, that he was at his neighbors house earlier today and was not feeling well. He became disoriented and was having a hard time speaking so his neighbor called 911. He was transported to the Emergency Department for further evaluation. He denies any CP, pressure, palpitations, dizziness or shortness of breath during this episode. Currently, he is alert and oriented with no neuro deficits noted. He denies any symptoms at this time. Review of Systems All other systems reviewed negative except as stated [facility] - History History Provided By: Patient - Medical History Medical History: Medical History (Last Reviewed 04/01/18 @ 13:29 by Maricel Cerrato) Diabetes HTN (hypertension) No significant past surgical history Stroke - Family History Family History: Family History (Last Updated 04/01/18 @ 16:49 by Rashawn Tierney MD) Other Osteoarthritis - Tobacco History Second Hand Smoke Exposure: No Smoking Status: Never smoker - Alcohol History How Often Do You Have a Drink Containing Alcohol: Never - Substance Use History Substance History: No History of Abuse - Travel History Recent Travel in the [place] Within the Last 8 Weeks: No Recent Travel Out of the Country Within the Last 8 Weeks: No - Immunization History Tetanus Immunization: >5 Years Medications and Allergies Allergies Allergy/AdvReac Type Severity Reaction Status Date / Time No Known Allergies Allergy Verified 04/01/18 12:15 Home Medications Medication Instructions Recorded Confirmed Type aspirin 325 mg PO DAILY 04/01/18 04/01/18 History carvedilol [Coreg] 3.125 mg PO BID 04/01/18 04/01/18 History hydrochlorothiazide 25 mg PO DAILY 04/01/18 04/01/18 History metformin 500 mg PO BID 04/01/18 04/01/18 History Active Medications: Active Medications Al Hydroxide/Mg Hydroxide (Milk Of Magneli Liq) 30 ml PO Q12H PRN PRN Reason: Mild Constipation Nicardipine HCl 25 mg/ Sodium (Chloride) 250 mls @ 50 mls/hr IV.CONT TITRATE PRN; Protocol PRN Reason: Per Protocol Last Titration: 04/01/18 15:37 Dose: 7.5 mg/hr, 75 mls/hr Ondansetron HCl (Zofran Inj) 4 mg IV.PUSH Q6H PRN PRN Reason: NAUSEA OR VOMITING Sodium Chloride (Ns Flush) 2 ml IV.FLUSH PRN PRN PRN Reason: FLUSH AFTER USING IV ACCESS Last Admin: 04/01/18 12:47 Dose: 2 ml Exam Vital signs: Vital Signs 04/01/18 12:10 04/01/18 12:29 04/01/18 13:38 Temperature 97.9 F 97.8 F 97.7 F Pulse Rate 68 70 70 Respiratory Rate 16 17 16 Blood Pressure 221/106 H 217/99 H 152/74 H Pulse Oximetry 98 97 98 04/01/18 14:03 04/01/18 14:57 Temperature 97.8 F 97.8 F Pulse Rate 68 97 H Respiratory Rate 16 17 Blood Pressure 148/64 H 167/81 H Pulse Oximetry 98 98 Intake & Output 03/31/18 04/01/18 04/01/18 18:59 06:59 18:59 Output Total 800 / 800 Balance -800 / -800 Weight 69.8 kg Output: Urine 800 / 800 Other: # Voids 1 - Constitutional no acute distress - Routine HEENT Exam Head: Present: normocephalic Eye: Present: PERRL ENT: Present: mucous membranes moist - Routine Neck Exam Present: full ROM - Routine Respiratory Exam Present: CTA bilaterally - Routine Cardiovascular Exam Present: S1, S2. Absent: murmur, gallop, rubs - Routine Abdominal Exam Present: normoactive bowel sounds - Routine Extremities Exam Present: full ROM, pulses intact, normal capillary refill. Absent: cyanosis, clubbing, edema - Routine Skin Exam Present: intact - Routine Neurological Exam Present: oriented X3 Results 04/01/18 12:10 04/01/18 12:10 Cardiac Enzymes 04/01/18 Range/Units 12:10 Troponin I 0.17 H (0.02-0.05) ng/mL Coagulation 04/01/18 Range/Units 12:10 PT 9.9 (9.8-11.6) sec APTT 25.1 (23.4-31.7) sec CBC 11/07/18 Range/Units 12:10 WBC 7.9 (4.0-11.0) th/mm3 RBC 4.70 (4.50-5.90) mil/mm3 Hgb 14.8 (13.0-17.0) gm/dL Hct 43.2 (39.0-51.0) % Plt Count 176 (150-450) th/mm3 Neut # (Auto) 5.3 (1.8-7.7) th/mm3 Lymph # (Auto) 1.8 (1.0-4.8) th/mm3 [place] # (Auto) 0.8 (0.0-0.9) th/mm3 Eos # (Auto) 0.1 (0.0-0.4) th/mm3 Baso # (Auto) 0.0 (0.0-0.2) th/mm3 Comprehensive Metabolic Panel 04/01/18 Range/Units 12:10 Sodium 135 L (136-145) meq/L Potassium 4.0 (3.5-5.1) meq/L Chloride 98 (98-107) meq/L Carbon Dioxide 27.5 (21.0-32.0) meq/L BUN 19 H (7-18) mg/dL Creatinine 1.13 (0.60-1.30) mg/dL Calcium 9.1 (8.5-10.1) mg/dL Intake and Output 04/01/18 04/01/18 04/01/18 06:59 14:59 22:59 Output Total 800 / 800 Balance -800 / -800 Output: Urine 800 / 800 Other: # Voids 1 Weight 69.8 kg Patient Weight 04/02/18 06:59 Weight 69.8 kg - Imaging and Cardiology Imaging: Impressions Head CT 04/01/18 12:15 CONCLUSION: 1. Chronic ischemic changes and old right cerebellar infarct. 2. No evidence of acute infarct, hemorrhage, mass or edema. Report was called by Dr. Lucas to the ordering ED physician at [phone].] Head CTA 04/01/18 12:15 CONCLUSION: No evidence of proximal thrombus or significant steno-occlusive disease. Report was called by [Shayy to Dr. Mckinley at [phone]. ] Neck CTA 04/01/18 12:15 CONCLUSION: 1. Moderate calcified and noncalcified plaque in the left carotid bifurcation with moderate narrowing at the origin of the internal carotid artery measuring 50%. 2. Widely patent right carotid bifurcation status post endarterectomy. 3. Symmetric patent vertebral arteries. Assessment and Plan - Assessment (1) Transient cerebral ischemia Code(s): G45.9 - Transient cerebral ischemic attack, unspecified Status: Acute (2) Hypertensive emergency Code(s): I16.1 - Hypertensive emergency Status: Acute (3) Elevated troponin Code(s): R74.8 - Abnormal levels of other serum enzymes Status: Acute - Plan Patient currently in SR on monitor, we will continue to monitor for possible paroxysmal atrial fibrillation. Troponin level is mildly elevated, we will continue to monitor with serial enzymes and EKGs. Continue to monitor patient on telemetry. Patient being evaluated for possible TIA/CVA, neurology evaluation in progress. We will continue to follow the patient his during hospitalization. Patient to follow up with Dr. Simon post discharge from hospital The patient was seen and evaluated by Dr. Morrell who participated in care, management and decision making. - Attending Attestation Patient seen and examined. I reviewed and agree with the evaluation and plan as presented. Continue and titrate BP control. Continue to monitor on telemetry with serial enzymes and EKGs.
[2018-04-01] MEDS ORDERED: Dextrose 50% in Water 50 ML Vial IV.PUSH PRN (17:03)
--- NOTE | 2018-04-01 17:07 | P.HPIM ---
History of Present Illness Primary Care Physician: UNKNOWN History of Present Illness: Mr. Healy is a 63-year-old male. He came in secondary to altered mental status and slurred speech. He was noted to have hypertensive urgency/emergency with a blood pressure of 240 systolic. EKG changes are noted and also slight elevation in troponin. Etiology for his EKG changes, troponin elevation, and neurologic changes is likely related to his hypertensive emergency episode. Blood pressures have improved. When I am visiting with him his blood pressure is down to 160 systolic. He has resolution of his neural logic symptoms. No other complaints. He says this is happened before in the past. Inpatient Certification: I certify that the inpatient services were ordered in accordance with Medicare regulations governing the order. This includes certification that hospital inpatient services are reasonable and necessary and in the case of services not specified as inpatient-only under 42 CFR 419.22(n), that they are appropriately provided as inpatient services in accordance to with the 2-midnight benchmark under 43 CFR 412.3(e) Estimated Total Length of Stay (Days): 3 Plans for Post Hospital Care: Home Review of Systems Constitutional: No fevers, no chills no night sweats, no fatigue, no weakness Eyes: No eye pain, no blurry vision, no loss of vision ENT: No sore throat, no ear pain, no rhinorrhea Cardiovascular: No chest pain, no tachycardia, no palpitations, no shortness of breath, no syncope Respiratory: No wheezing, no cough, no shortness of breath Gastrointestinal: No abdominal pain, no black tarry stools, no bright red blood per rectum, no vomiting, no diarrhea Musculoskeletal: No joint pain, no muscle cramps, no stiffness Integumentary: No rash, no ulcers, no drainage Neurologic: No sensory loss, no loss of motor function, no dizziness Psychiatric: No behavioral changes, no hallucinations, no suicidal ideations, slurred speech. [facility] - History History Provided By: Patient - Medical History Medical History: Medical History (Last Reviewed 04/01/18 @ 13:29 by Maricel Cerrato) Diabetes HTN (hypertension) No significant past surgical history Stroke - Tobacco History Second Hand Smoke Exposure: No Smoking Status: Never smoker - Alcohol History How Often Do You Have a Drink Containing Alcohol: Never - Substance Use History Substance History: No History of Abuse - Travel History Recent Travel in the [facility] Within the Last 8 Weeks: No Recent Travel Out of the Country Within the Last 8 Weeks: No - Immunization History Tetanus Immunization: >5 Years Medications and Allergies Active Medications: Active Medications Al Hydroxide/Mg Hydroxide (Milk Of Veronika Wood) 30 ml PO Q12H PRN PRN Reason: Mild Constipation Nicardipine HCl 25 mg/ Sodium (Chloride) 250 mls @ 50 mls/hr IV.CONT TITRATE PRN; Protocol PRN Reason: Per Protocol Last Titration: 04/01/18 15:37 Dose: 7.5 mg/hr, 75 mls/hr Ondansetron HCl (Zofran Inj) 4 mg IV.PUSH Q6H PRN PRN Reason: NAUSEA OR VOMITING Sodium Chloride (Ns Flush) 2 ml IV.FLUSH PRN PRN PRN Reason: FLUSH AFTER USING IV ACCESS Last Admin: 04/01/18 12:47 Dose: 2 ml Allergies Allergy/AdvReac Type Severity Reaction Status Date / Time No Known Allergies Allergy Verified 04/01/18 12:15 Home Medications Medication Instructions Recorded Confirmed Type aspirin 325 mg PO DAILY 04/01/18 04/01/18 History carvedilol [Coreg] 3.125 mg PO BID 04/01/18 04/01/18 History hydrochlorothiazide 25 mg PO DAILY 04/01/18 04/01/18 History metformin 500 mg PO BID 04/01/18 04/01/18 History Exam Vital signs: Vital Signs 04/01/18 12:10 04/01/18 12:29 04/01/18 13:38 Temperature 97.9 F 97.8 F 97.7 F Pulse Rate 68 70 70 Respiratory Rate 16 17 16 Blood Pressure 221/106 H 217/99 H 152/74 H Pulse Oximetry 98 97 98 04/01/18 14:03 04/01/18 14:57 Temperature 97.8 F 97.8 F Pulse Rate 68 97 H Respiratory Rate 16 17 Blood Pressure 148/64 H 167/81 H Pulse Oximetry 98 98 Intake & Output 03/31/18 04/01/18 04/01/18 18:59 06:59 18:59 Output Total 800 / 800 Balance -800 / -800 Weight 69.8 kg Output: Urine 800 / 800 Other: # Voids 1 Narrative: GENERAL: NAD, A&Ox3 HEAD: Normocephalic. NECK: Supple, trachea midline. No lymphadenopathy. EYES: No scleral icterus. No injection or drainage. CARDIOVASCULAR: Regular rate and rhythm without murmurs, gallops, or rubs. RESPIRATORY: Breath sounds equal bilaterally. No accessory muscle use. GASTROINTESTINAL: Abdomen soft, non-tender, nondistended. MUSCULOSKELETAL: No cyanosis, or edema. SKIN: Warm and dry. NEURO: No focal neurological deficits. Results - Labs CBC & Chem 7: 04/01/18 12:10 04/01/18 12:10 Labs: Short CBC 04/01/18 Range/Units 12:10 WBC 7.9 (4.0-11.0) th/mm3 Hgb 14.8 (13.0-17.0) gm/dL Hct 43.2 (39.0-51.0) % Plt Count 176 (150-450) th/mm3 BMP 04/01/18 12:10 Sodium 135 L Potassium 4.0 Chloride 98 Carbon Dioxide 27.5 BUN 19 H Creatinine 1.13 Calcium 9.1 Cardiac Enzymes 04/01/18 Range/Units 12:10 Total Creatine Kinase 84 (39-308) U/L Troponin I 0.17 H (0.02-0.05) ng/mL Urine 04/01/18 Range/Units 13:10 Urine Color Straw (Yellw/Straw) Urine Clarity Clear (Clear) Urine pH 7.0 (5.0-8.5) Ur Specific [place] 1.013 (1.002-1.035) Urine Protein 100 H (Neg-Trace) mg/dL Urine Glucose (UA) 50 (Negative) mg/dL - Imaging Impressions Head CT 04/01/18 12:15 CONCLUSION: 1. Chronic ischemic changes and old right cerebellar infarct. 2. No evidence of acute infarct, hemorrhage, mass or edema. Report was called by Dr. Lucas to the ordering ED physician at [phone].] Head CTA 04/01/18 12:15 CONCLUSION: No evidence of proximal thrombus or significant steno-occlusive disease. Report was called by [Shayy to Dr. Mckinley at [phone]. ] Neck CTA 04/01/18 12:15 CONCLUSION: 1. Moderate calcified and noncalcified plaque in the left carotid bifurcation with moderate narrowing at the origin of the internal carotid artery measuring 50%. 2. Widely patent right carotid bifurcation status post endarterectomy. 3. Symmetric patent vertebral arteries. Caprini VTE Risk Assessment Caprini VTE Risk Assessment: No/Low Risk (score <= 1) Caprini Risk Assessment Model: Point Value = 1 Point Value = 2 Point Value = 3 Point Value = 5 Age 41-60 Minor surgery BMI > 25 kg/m2 Swollen legs Varicose veins or History of unexplained or recurrent spontaneous Oral contraceptives or hormone replacement Sepsis (< 1 month) Serious lung disease, including pneumonia (< 1 month) Abnormal pulmonary function Acute myocardial infarction Congestive heart failure (< 1 month) History of inflammatory bowel disease Medical patient at bed rest Age 61-74 Arthroscopic surgery Major open surgery (> 45 min) Laparoscopic surgery (> 45 min) Malignancy Confined to bed (> 72 hours) Immobilizing plaster cast Central venous access Age >= 75 History of VTE Family history of VTE Factor V Leiden Prothrombin [id number] Lupus anticoagulant Anticardiolipin antibodies Elevated serum homocysteine Heparin-induced thrombocytopenia Other congenital or acquired thrombophilia Stroke (< 1 month) Elective arthroplasty Hip, pelvis, or leg fracture Acute spinal cord injury (< 1 month) Prophylaxis Regimen: Total Risk Factor Score Risk Level Prophylaxis Regimen 0-1 Low Early ambulation 2 Moderate Order ONE of the following: *Sequential Compression Device (SCD) *Heparin 5000 units SQ BID 3-4 Higher Order ONE of the following medications: *Heparin 5000 units SQ TID *Enoxaparin/Lovenox 40 mg SQ daily (WT < 150 kg, CrCl > 30 mL/min) *Enoxaparin/Lovenox 30 mg SQ daily (WT < 150 kg, CrCl > 10-29 mL/min) *Enoxaparin/Lovenox 30 mg SQ BID (WT < 150 kg, CrCl > 30 mL/min) AND/OR *Sequential Compression Device (SCD) 5 or more Highest Order ONE of the following medications: *Heparin 5000 units SQ TID (Preferred with Epidurals) *Enoxaparin/Lovenox 40 mg SQ daily (WT < 150 kg, CrCl > 30 mL/min) *Enoxaparin/Lovenox 30 mg SQ daily (WT < 150 kg, CrCl > 10-29 mL/min) *Enoxaparin/Lovenox 30 mg SQ BID (WT < 150 kg, CrCl > 30 mL/min) AND *Sequential Compression Device (SCD) Assessment and Plan - Plan 63 year old male admitted with hypertensive emergency, slurred speech, EKG changes and troponin elevation. HTN Emergency on HTN Cardene drip Follow BP Continue baseline treatments, adjust if needed Wean cardene drip as tolerated Slurred Speech Etiology may be related to HTN Emergency MRI Brain EKG Changes Troponin Elevation Follow troponin Follow on telemetry Etiology likely related to Diabetes mellitus type 2 Follow blood sugars Insulin sliding scale Diabetic diet DVT prophylaxis SCDs H&P: Quality - VTE Deep Vein Thrombosis/Pulmonary Embolism Present on Admission: No
[2018-04-01] MEDS: Sod Chloride 0.9% Inj 1,000 ML IV.CONT SCH (17:45)
[2018-04-01 18:55] LABS: Amphetamine Screen,Urine Neg (Neg); Barbiturate Screen,Urine Neg (Neg); Cannabinoid Screen,Urine Neg (Neg); Cocaine Screen,Urine Neg (Neg)
[2018-04-01 18:58] LABS: Opiate Screen,Urine Neg (Neg)
--- NOTE | 2018-04-01 19:50 | MB ---
cc: Mirza Mckinley MD DATE: 04/01/2018 HISTORY OF PRESENT ILLNESS: The patient is a 63-year-old right-handed man with a history of insulin-dependent diabetes, hypercholesterolemia, right carotid endarterectomy for asymptomatic carotid artery stenosis a year ago. He does take 325 mg aspirin a day. He says about a year ago, he had a stroke when he passed out, could move his legs well, and was put on aspirin at that time. He does see a vehicle service agent locally, but is not sure which one. Today, he was at [employer], got in his car, and then he could not talk, could not get his words out, and somewhat slurred speech, but probably expressive aphasia also for about 2-3 minutes and then it went away. No asymmetrical weakness or numbness. No chest pain, palpitations, or headache. REVIEW OF SYSTEMS: He denies any hypertension, UT, stent, angioplasty, A-Fib, Coumadin, renal, hepatic, pulmonary disease, thyroid disease, lupus, ulcer, cancer, seizure. SOCIAL HISTORY: He is not a smoker or drinker, lives by himself. FAMILY HISTORY: Positive for cancer. Negative for seizure or stroke. MEDICATIONS AT HOME: 1. Metformin. 2. Carvedilol. 3. Hydrochlorothiazide. 4. Aspirin 325 mg. EKG shows sinus rhythm, left atrial enlargement, some flipped Ts are seen laterally. PHYSICAL EXAMINATION: VITAL SIGNS: Afebrile 75, 15, 171/84-221/106. NECK: There are no carotid bruits. HEART: Regular rate and rhythm. I did not detect a murmur. NEUROLOGIC: Visual natarajan are full. Pupils are equal. Extraocular movements intact without nystagmus. Face is symmetric with normal sensation. Tongue was midline. There is no drift. He had normal strength in upper and lower extremities bilaterally. DTRs are 2+ in the upper extremities, 3+ symmetric at the knees. Toes are downgoing bilaterally. There is no ankle clonus. Pinprick was intact throughout face, arm and leg bilaterally. . Speech is fluent. He is not aphasic. He names, repeats, and calculates well. LABORATORY DATA: CBC is normal. UA was negative. Basic metabolic profile essentially normal. Calcium normal. Troponin 0.17. CPK 84. Coags normal. He had a CTA of the neck done, which showed 50% stenosis on the left carotid. He had a CT of the head done. No thrombus noted, normal. He had a CAT scan of the brain done, old right cerebellar infarct. I reviewed those films. There was fairly large old right inferior cerebellar infarct, also an old right periventricular frontal white matter infarct and a larger old right frontal infarct cortically based. He had a Holter monitor done in 2007, which was negative. He had an echocardiogram done in 2016, showed a normal ejection fraction. He had an MRA in 2016 of his neck showing 35% stenosis on the left, 80% on the right. MRA of the head at that time was normal. He had an MRI of the brain at that time, multiple acute infarcts, right parietal lobe. He ended up having an endarterectomy right around that time on the right side. He had a cardiology consult today. IMPRESSION: It sounds like he had a transient ischemic attack. We will see what his echo shows now. He should get a cardiac catheterization technologist as a 30-day monitor at least as an outpatient. We will put him on Plavix now. He can stop his aspirin in 5 days. We will check an EEG and MRI of the brain. Check an LDL cholesterol on him. Mirza Mckinley MD DJM/sv/ll , 05:38 PM , 05:48 PM
[2018-04-01 19:55] LABS: Thyroid Stimulating Hormone 0.469 uIU/mL (0.358-3.740)
[2018-04-01] MEDS ORDERED: Gadobutrol PF 7.5 MMOL/7.5 ML Vial (for RAD) IV.SIG ONE (20:35)
--- NOTE | 2018-04-01 20:45 | MR ---
EXAM DATE: 04/01/2018 8:38 PM EST AGE/SEX: 63 years / Male INDICATIONS: CVA. CLINICAL DATA: This is the patient's initial encounter. Patient reports that signs and symptoms have been present for 1 day and indicates a pain score of 0/10. MEDICAL/SURGICAL HISTORY: Cardiovascular disease. DM, HTN . Cardiac [place] [facility] [place]. [facility] [place]. . TECHNIQUE: Multiplanar, multisequence examination of the brain was performed without and with 7 ml Ga davist (gadobutrol) contrast as a single exam dose. FINDINGS: Cerebrum: The ventricles are normal for age. No evidence of midline shift, mass lesion, hemorrhage or acute infarction. No extraaxial fluid collections are seen. The pituitary gland and suprasellar cistern are normal in configuration. An old infarct of the right side of the cerebellum again noted. White Matter: Moderate to severe chronic FLAIR signal abnormality again seen in the white matter of both cerebral hemispheres, not significantly changed. Posterior Fossa: The cerebellum and brainstem are intact. The 4th ventricle is midline. The cerebel lopontine angle is unremarkable. The cerebellar tonsils are normal in position. Diffusion Imaging: No focal areas of restricted diffusion are seen. No evidence of acute infarction . Extracranial: The visualized portions of the orbits and paranasal sinuses are unremarkable. Post Contrast: No abnormal areas of parenchymal or dural enhancement. No evidence of blood-brain ba rrier breakdown. CONCLUSION: 1. No bleed, acute infarct or other acute intracranial abnormality. 2. Chronic white matter changes. 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 Electronically signed by: Solis Uribe MD 04/01/2018 8:44 PM EST
[2018-04-01] MEDS: Insulin NovoLOG Aspart Correctional Sugar Inj SQ SCH (21:39)
[2018-04-02] MEDS: niCARdipine Inj 25 MG in Sodium Chlor 0.9% Inj 240 ML IV.CONT PRN ×3 (01:16→05:00)
[2018-04-02] MEDS ORDERED: hydrALAZINE HCl Inj 20 MG/ML Vial IV.PUSH ONE (01:21)
[2018-04-02] MEDS: Chlorhexidine Gluconate 2% 1 Pack (2 Cloths) TOPICAL SCH (03:08)
[2018-04-02] MEDS ORDERED: Chlorhexidine Gluconate 2% 1 Pack (2 Cloths) TOPICAL PRN (04:00)
[2018-04-02 05:50] LABS: Baso # (Auto) 0.1 th/mm3 (0.0-0.2); Baso % (Auto) 0.6 % (0.0-2.0); Eos # (Auto) 0.2 th/mm3 (0.0-0.4); Eos % (Auto) 1.7 % (0.0-4.0); Hemoglobin 14.5 gm/dL (13.0-17.0); Lymph # (Auto) 1.8 th/mm3 (1.0-4.8); Lymph % (Auto) 16.7 % (9.0-44.0); Mean Corpuscular HGB Conc 33.8 % (32.0-36.0); Mean Corpuscular Hemoglobin 31.2 pg (27.0-34.0); Mean Corpuscular Volume 92.4 fL (80.0-100.0); Mean Platelet Volume 7.3 fL (7.0-11.0); Neut # (Auto) 7.6 th/mm3 (1.8-7.7); Platelet Count 182 th/mm3 (150-450); Red Blood Count 4.65 mil/mm3 (4.50-5.90); Red Cell Distribution Width 13.7 % (11.6-17.2); White Blood Count 10.6 th/mm3 (4.0-11.0)
[2018-04-02 06:17] LABS: Alanine Aminotransferase 20 U/L (12-78); Albumin 3.4 g/dL (3.4-5.0); Anion Gap 11 meq/L (5-15); Aspartate Aminotransferase 15 U/L (15-37); Blood Urea Nitrogen 16 mg/dL (7-18); Carbon Dioxide 25.8 meq/L (21.0-32.0); Chloride 104 meq/L (98-107); Cholesterol 132 mg/dL (120-200); Glomerular Filtration Rate 83 mL/min (>89); Glucose,Random 148 mg/dL (74-106); Potassium 3.6 meq/L (3.5-5.1); Sodium 141 meq/L (136-145)
[2018-04-02 06:27] LABS: Alkaline Phosphatase 95 U/L (45-117); Chol/HDL Ratio 2.97 Ratio; HDL Cholesterol 44.4 mg/dL (40.0-60.0); LDL Cholesterol,Calculated 67 mg/dL (0-99); Total Protein 6.3 g/dL (6.4-8.2); Triglycerides 102 mg/dL (42-150); Troponin I 0.12 ng/mL (0.02-0.05)
--- NOTE | 2018-04-02 08:00 | P.PNNEU ---
Subjective Subjective Comments: sr Active Medications: Active Medications Al Hydroxide/Mg Hydroxide (Milk Of Veronika Wood) 30 ml PO Q12H PRN PRN Reason: Mild Constipation Aspirin (Aspirin) 325 mg PO DAILY [facility] Carvedilol (Coreg) 3.125 mg PO BID [facility] Last Admin: 04/01/18 21:39 Dose: 3.125 mg Chlorhexidine Gluconate (Chlorhexidine 2% Cloth) 3 pack TOPICAL DAILY@0400 [facility] Stop: 04/07/18 03:59 Last Admin: 04/02/18 03:08 Dose: 3 pack Chlorhexidine Gluconate (Chlorhexidine 2% Cloth) 3 pack TOPICAL DAILY@0400 PRN PRN Reason: Extra cloth needed Stop: 04/07/18 03:59 Clopidogrel Bisulfate (Plavix) 75 mg PO DAILY [facility] Last Admin: 04/01/18 18:40 Dose: 75 mg Dextrose (D50w Vial) 50 ml IV.PUSH UNSCH PRN PRN Reason: PER HYPOGLYCEMIA PROTOCOL Glucagon (Glucagon Inj) 1 mg OTHER PRN PRN PRN Reason: for Hypoglycemia Protocol Hydrochlorothiazide (Hydrodiuril) 25 mg PO DAILY [facility] Nicardipine HCl 25 mg/ Sodium (Chloride) 250 mls @ 50 mls/hr IV.CONT TITRATE PRN; Protocol PRN Reason: Per Protocol Last Admin: 04/02/18 05:00 Dose: 15 mg/hr, 150 mls/hr Sodium Chloride (Ns Inj) 1,000 mls @ 70 mls/hr IV.CONT .[id number] [facility] Last Admin: 04/01/18 17:45 Dose: 70 mls/hr Insulin Aspart (Novolog Insulin Correctional Sugar Inj) 0 unit SQ ACHS [facility]; Protocol Last Admin: 04/01/18 21:39 Dose: Not Given Lisinopril (Prinivil) 20 mg PO DAILY [facility] Ondansetron HCl (Zofran Inj) 4 mg IV.PUSH Q6H PRN PRN Reason: NAUSEA OR VOMITING Sodium Chloride (Ns Flush) 2 ml IV.FLUSH PRN PRN PRN Reason: FLUSH AFTER USING IV ACCESS Last Admin: 04/01/18 12:47 Dose: 2 ml Allergies/Adverse Reactions: Allergies Allergy/AdvReac Type Severity Reaction Status Date / Time No Known Allergies Allergy Verified 04/01/18 12:15 Physical Exam Vital signs: Vital Signs 04/01/18 12:10 04/01/18 12:29 04/01/18 13:38 Temperature 97.9 F 97.8 F 97.7 F Pulse Rate 68 70 70 Respiratory Rate 16 17 16 Blood Pressure 221/106 H 217/99 H 152/74 H Pulse Oximetry 98 97 98 04/01/18 14:03 04/01/18 14:57 04/01/18 16:00 Temperature 97.8 F 97.8 F 97.9 F Pulse Rate 68 97 H 75 Respiratory Rate 16 17 15 Blood Pressure 148/64 H 167/81 H 171/84 H Pulse Oximetry 98 98 96 04/01/18 17:00 04/01/18 17:23 04/01/18 18:00 Temperature Pulse Rate 80 85 Respiratory Rate 15 15 Blood Pressure 183/88 H 169/80 H Pulse Oximetry 97 98 96 04/01/18 20:00 04/01/18 22:14 04/01/18 22:21 Temperature Pulse Rate 88 93 H Respiratory Rate 17 Blood Pressure 163/90 H Pulse Oximetry 95 97 99 04/01/18 22:41 04/01/18 22:51 04/01/18 23:00 Temperature Pulse Rate 89 85 89 Respiratory Rate Blood Pressure 136/104 H 164/74 H 164/75 H Pulse Oximetry 98 99 98 04/01/18 23:20 04/01/18 23:40 04/02/18 00:00 Temperature 98 F Pulse Rate 91 H 94 H 93 H Respiratory Rate 14 Blood Pressure 165/75 H 168/86 H 172/75 H Pulse Oximetry 98 99 98 04/02/18 00:20 04/02/18 00:41 04/02/18 01:00 Temperature Pulse Rate 95 H 97 H 95 H Respiratory Rate Blood Pressure 171/75 H 155/69 H 165/72 H Pulse Oximetry 98 98 97 04/02/18 01:20 04/02/18 01:40 04/02/18 02:00 Temperature Pulse Rate 94 H 95 H 101 H Respiratory Rate 16 20 Blood Pressure 164/70 H 151/67 H 154/122 H Pulse Oximetry 98 97 96 04/02/18 02:20 04/02/18 02:40 04/02/18 03:00 Temperature Pulse Rate 100 H 96 H 96 H Respiratory Rate 17 17 18 Blood Pressure 151/69 H 151/69 H 162/69 H Pulse Oximetry 97 99 97 04/02/18 03:20 04/02/18 03:40 04/02/18 04:00 Temperature 98.3 F Pulse Rate 97 H 98 H 92 H Respiratory Rate 17 19 18 Blood Pressure 148/67 H 151/65 H 145/63 H Pulse Oximetry 98 97 98 04/02/18 04:20 04/02/18 04:40 04/02/18 05:00 Temperature Pulse Rate 93 H 100 H 100 H Respiratory Rate 20 23 18 Blood Pressure 146/64 H 139/64 156/67 H Pulse Oximetry 97 98 97 04/02/18 05:20 04/02/18 05:41 04/02/18 06:00 Temperature Pulse Rate 104 H 101 H 97 H Respiratory Rate 20 24 19 Blood Pressure 165/71 H 158/70 H 164/68 H Pulse Oximetry 97 99 98 Intake & Output 04/01/18 04/02/18 04/02/18 18:59 06:59 18:59 Intake Total 250 / 250 1500 / 1500 Output Total 1100 / 1100 1100 / 1100 Balance -850 / -850 400 / 400 Weight 69.8 kg 81 kg Intake: IV 250 / 250 1500 / 1500 Cardene Inj 25 MG In NS Inj 240 250 / 250 1500 / 1500 ML @ 5 MG/HR 50 mls/hr IV.CONT TITRATE PRN Rx#:[id number] Oral 0 / 0 0 / 0 Output: Urine 1100 / 1100 1100 / 1100 Other: # Voids 1 Date of Last Bowel Movement 04/01/18 04/01/18 # Bowel Movements 0 Narrative: vff face sym nl speech and language 5/5 Objective Laboratory Results - last 24 hr 04/01/18 04/01/18 04/01/18 12:10 12:10 12:10 WBC 7.9 RBC 4.70 Hgb 14.8 POC Hgb (Calc) Hct 43.2 POC Hct MCV 92.0 MCH 31.4 MCHC 34.2 RDW 13.7 Plt Count 176 MPV 7.9 Neut % (Auto) 66.1 Lymph % (Auto) 22.1 [place] % (Auto) 9.6 H Eos % (Auto) 1.7 Baso % (Auto) 0.5 Neut # (Auto) 5.3 Lymph # (Auto) 1.8 [place] # (Auto) 0.8 Eos # (Auto) 0.1 Baso # (Auto) 0.0 WBC Differential . Differential Comment Auto diff final ESR PT 9.9 INR 1.0 APTT 25.1 POC Sodium Sodium 135 L POC Potassium Potassium 4.0 POC Chloride Chloride 98 Carbon Dioxide 27.5 Anion Gap 10 POC BUN BUN 19 H Creatinine 1.13 POC Creatinine Estimated GFR 65 L POC Glucose Random Glucose 189 H Calcium 9.1 Total Bilirubin AST ALT Alkaline Phosphatase Total Creatine Kinase 84 Troponin I 0.17 H Total Protein Albumin Triglycerides Cholesterol LDL Cholesterol, Calc HDL Cholesterol Cholesterol/HDL Ratio Vitamin B12 TSH Urine Color Urine Clarity Urine pH Ur Specific [place] Urine Protein Urine Glucose (UA) Urine Ketones Urine Occult Blood Urine Nitrate Urine Bilirubin Urine Urobilinogen Ur Leukocyte Esterase Urine RBC Urine WBC Micro UA Comment Ur Microscopic Review Urine Culture Comments Nasal Screen MRSA (PCR) Urine Opiates Screen Ur Barbiturates Screen Ur Amphetamines Screen U Benzodiazepines Scrn Urine Cocaine Screen U Cannabinoids Screen 04/01/18 04/01/18 04/01/18 12:10 12:10 12:10 WBC RBC Hgb POC Hgb (Calc) 14.3 Hct POC Hct 42.0 MCV MCH MCHC RDW Plt Count MPV Neut % (Auto) Lymph % (Auto) [place] % (Auto) Eos % (Auto) Baso % (Auto) Neut # (Auto) Lymph # (Auto) [place] # (Auto) Eos # (Auto) Baso # (Auto) WBC Differential Differential Comment ESR 2 PT INR APTT POC Sodium 135 L Sodium POC Potassium 4.1 Potassium POC Chloride 94 L Chloride Carbon Dioxide Anion Gap POC BUN 18 BUN Creatinine POC Creatinine 1.0 Estimated GFR POC Glucose 184 H Random Glucose Calcium Total Bilirubin AST ALT Alkaline Phosphatase Total Creatine Kinase Troponin I Total Protein Albumin Triglycerides Cholesterol LDL Cholesterol, Calc HDL Cholesterol Cholesterol/HDL Ratio Vitamin B12 590 TSH 0.469 Urine Color Urine Clarity Urine pH Ur Specific [place] Urine Protein Urine Glucose (UA) Urine Ketones Urine Occult Blood Urine Nitrate Urine Bilirubin Urine Urobilinogen Ur Leukocyte Esterase Urine RBC Urine WBC Micro UA Comment Ur Microscopic Review Urine Culture Comments Nasal Screen MRSA (PCR) Urine Opiates Screen Ur Barbiturates Screen Ur Amphetamines Screen U Benzodiazepines Scrn Urine Cocaine Screen U Cannabinoids Screen 04/01/18 04/01/18 04/01/18 13:10 16:00 17:58 WBC RBC Hgb POC Hgb (Calc) Hct POC Hct MCV MCH MCHC RDW Plt Count MPV Neut % (Auto) Lymph % (Auto) [place] % (Auto) Eos % (Auto) Baso % (Auto) Neut # (Auto) Lymph # (Auto) [place] # (Auto) Eos # (Auto) Baso # (Auto) WBC Differential Differential Comment ESR PT INR APTT POC Sodium Sodium POC Potassium Potassium POC Chloride Chloride Carbon Dioxide Anion Gap POC BUN BUN Creatinine POC Creatinine Estimated GFR POC Glucose Random Glucose Calcium Total Bilirubin AST ALT Alkaline Phosphatase Total Creatine Kinase Troponin I Total Protein Albumin Triglycerides Cholesterol LDL Cholesterol, Calc HDL Cholesterol Cholesterol/HDL Ratio Vitamin B12 TSH Urine Color Straw Urine Clarity Clear Urine pH 7.0 Ur Specific [place] 1.013 Urine Protein 100 H Urine Glucose (UA) 50 Urine Ketones Negative Urine Occult Blood Small H Urine Nitrate Negative Urine Bilirubin Negative Urine Urobilinogen Less than 2 Ur Leukocyte Esterase Negative Urine RBC 2 Urine WBC Less than 1 Micro UA Comment Culture not ind Ur Microscopic Review Not Reportable Urine Culture Comments Culture not ind Nasal Screen MRSA (PCR) Not detected Urine Opiates Screen Neg Ur Barbiturates Screen Neg Ur Amphetamines Screen Neg U Benzodiazepines Scrn Neg Urine Cocaine Screen Neg U Cannabinoids Screen Neg 04/01/18 04/01/18 04/02/18 18:47 21:00 05:37 WBC RBC Hgb POC Hgb (Calc) Hct POC Hct MCV MCH MCHC RDW Plt Count MPV Neut % (Auto) Lymph % (Auto) [place] % (Auto) Eos % (Auto) Baso % (Auto) Neut # (Auto) Lymph # (Auto) [place] # (Auto) Eos # (Auto) Baso # (Auto) WBC Differential Differential Comment ESR PT INR APTT POC Sodium Sodium 141 POC Potassium Potassium 3.6 POC Chloride Chloride 104 Carbon Dioxide 25.8 Anion Gap 11 POC BUN BUN 16 Creatinine 0.92 POC Creatinine Estimated GFR 83 L POC Glucose 134 H Random Glucose 148 H Calcium 8.0 L D Total Bilirubin 0.5 AST 15 ALT 20 Alkaline Phosphatase 95 Total Creatine Kinase Troponin I 0.13 H 0.12 H Total Protein 6.3 L Albumin 3.4 Triglycerides 102 Cholesterol 132 LDL Cholesterol, Calc 67 HDL Cholesterol 44.4 Cholesterol/HDL Ratio 2.97 Vitamin B12 TSH Urine Color Urine Clarity Urine pH Ur Specific [place] Urine Protein Urine Glucose (UA) Urine Ketones Urine Occult Blood Urine Nitrate Urine Bilirubin Urine Urobilinogen Ur Leukocyte Esterase Urine RBC Urine WBC Micro UA Comment Ur Microscopic Review Urine Culture Comments Nasal Screen MRSA (PCR) Urine Opiates Screen Ur Barbiturates Screen Ur Amphetamines Screen U Benzodiazepines Scrn Urine Cocaine Screen U Cannabinoids Screen 04/02/18 05:37 WBC 10.6 RBC 4.65 Hgb 14.5 POC Hgb (Calc) Hct 43.0 POC Hct MCV 92.4 MCH 31.2 MCHC 33.8 RDW 13.7 Plt Count 182 MPV 7.3 Neut % (Auto) 72.0 H Lymph % (Auto) 16.7 [place] % (Auto) 9.0 H Eos % (Auto) 1.7 Baso % (Auto) 0.6 Neut # (Auto) 7.6 Lymph # (Auto) 1.8 [place] # (Auto) 1.0 H Eos # (Auto) 0.2 Baso # (Auto) 0.1 WBC Differential . Differential Comment Auto diff final ESR PT INR APTT POC Sodium Sodium POC Potassium Potassium POC Chloride Chloride Carbon Dioxide Anion Gap POC BUN BUN Creatinine POC Creatinine Estimated GFR POC Glucose Random Glucose Calcium Total Bilirubin AST ALT Alkaline Phosphatase Total Creatine Kinase Troponin I Total Protein Albumin Triglycerides Cholesterol LDL Cholesterol, Calc HDL Cholesterol Cholesterol/HDL Ratio Vitamin B12 TSH Urine Color Urine Clarity Urine pH Ur Specific [place] Urine Protein Urine Glucose (UA) Urine Ketones Urine Occult Blood Urine Nitrate Urine Bilirubin Urine Urobilinogen Ur Leukocyte Esterase Urine RBC Urine WBC Micro UA Comment Ur Microscopic Review Urine Culture Comments Nasal Screen MRSA (PCR) Urine Opiates Screen Ur Barbiturates Screen Ur Amphetamines Screen U Benzodiazepines Scrn Urine Cocaine Screen U Cannabinoids Screen Review/Management - Review/Management Plan: imp sr mri no new cva 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
[2018-04-02] MEDS: Aspirin 325 MG Tablet PO SCH (08:18)
[2018-04-02] MEDS: hydroCHLOROthiazide 25 MG Tablet PO SCH (08:19)
[2018-04-02] MEDS: Lisinopril 20 MG Tablet PO SCH (08:19)
[2018-04-02] MEDS: Insulin NovoLOG Aspart Correctional Sugar Inj SQ SCH ×5 (08:21→20:24)
[2018-04-02] MEDS: Sod Chloride 0.9% Inj 1,000 ML IV.CONT SCH ×2 (08:21→22:44)
[2018-04-02] MEDS ORDERED: Heparin 10,000 UNITS/10 ML Vial (for IV use) IV.PUSH STA (09:55)
[2018-04-02] MEDS ORDERED: niCARdipine Inj 25 MG/10 ML Vial ONE (09:55)
[2018-04-02] MEDS: niCARdipine 20mg/NS Premix 20 MG/200 ML PIGGYBACK IV.SIG PRN ×6 (10:05→22:44)
--- NOTE | 2018-04-02 11:15 | P.PNIM ---
Subjective Interval history: Recurrence of confusion episode and expressive aphasia this morning. These episodes are not occurring without hypertensive urgency. Etiology suspected to be seizure versus acute CVA. Workup had been negative as of yesterday. Physical Exam Vital signs: Vital Signs 04/01/18 12:10 04/01/18 12:29 04/01/18 13:38 Temperature 97.9 F 97.8 F 97.7 F Pulse Rate 68 70 70 Respiratory Rate 16 17 16 Blood Pressure 221/106 H 217/99 H 152/74 H Pulse Oximetry 98 97 98 04/01/18 14:03 04/01/18 14:57 04/01/18 16:00 Temperature 97.8 F 97.8 F 97.9 F Pulse Rate 68 97 H 75 Respiratory Rate 16 17 15 Blood Pressure 148/64 H 167/81 H 171/84 H Pulse Oximetry 98 98 96 04/01/18 17:00 04/01/18 17:23 04/01/18 18:00 Temperature Pulse Rate 80 85 Respiratory Rate 15 15 Blood Pressure 183/88 H 169/80 H Pulse Oximetry 97 98 96 04/01/18 20:00 04/01/18 22:14 04/01/18 22:21 Temperature Pulse Rate 88 93 H Respiratory Rate 17 Blood Pressure 163/90 H Pulse Oximetry 95 97 99 04/01/18 22:41 04/01/18 22:51 04/01/18 23:00 Temperature Pulse Rate 89 85 89 Respiratory Rate Blood Pressure 136/104 H 164/74 H 164/75 H Pulse Oximetry 98 99 98 04/01/18 23:20 04/01/18 23:40 04/02/18 00:00 Temperature 98 F Pulse Rate 91 H 94 H 93 H Respiratory Rate 14 Blood Pressure 165/75 H 168/86 H 172/75 H Pulse Oximetry 98 99 98 04/02/18 00:20 04/02/18 00:41 04/02/18 01:00 Temperature Pulse Rate 95 H 97 H 95 H Respiratory Rate Blood Pressure 171/75 H 155/69 H 165/72 H Pulse Oximetry 98 98 97 04/02/18 01:20 04/02/18 01:40 04/02/18 02:00 Temperature Pulse Rate 94 H 95 H 101 H Respiratory Rate 16 20 Blood Pressure 164/70 H 151/67 H 154/122 H Pulse Oximetry 98 97 96 04/02/18 02:20 04/02/18 02:40 04/02/18 03:00 Temperature Pulse Rate 100 H 96 H 96 H Respiratory Rate 17 17 18 Blood Pressure 151/69 H 151/69 H 162/69 H Pulse Oximetry 97 99 97 04/02/18 03:20 04/02/18 03:40 04/02/18 04:00 Temperature 98.3 F Pulse Rate 97 H 98 H 92 H Respiratory Rate 17 19 18 Blood Pressure 148/67 H 151/65 H 145/63 H Pulse Oximetry 98 97 98 04/02/18 04:20 04/02/18 04:40 04/02/18 05:00 Temperature Pulse Rate 93 H 100 H 100 H Respiratory Rate 20 23 18 Blood Pressure 146/64 H 139/64 156/67 H Pulse Oximetry 97 98 97 04/02/18 05:20 04/02/18 05:41 04/02/18 06:00 Temperature Pulse Rate 104 H 101 H 97 H Respiratory Rate 20 24 19 Blood Pressure 165/71 H 158/70 H 164/68 H Pulse Oximetry 97 99 98 04/02/18 08:57 Temperature Pulse Rate Respiratory Rate Blood Pressure Pulse Oximetry 99 Intake & Output 04/01/18 04/02/18 04/02/18 18:59 06:59 18:59 Intake Total 250 / 250 1500 / 1500 1000 / 1000 Output Total 1100 / 1100 1100 / 1100 Balance -850 / -850 400 / 400 1000 / 1000 Weight 69.8 kg 81 kg Intake: IV 250 / 250 1500 / 1500 1000 / 1000 NS Inj 1,000 ML @ 70 mls/hr IV. 1000 / 1000 CONT .[id number] [facility] Rx#:[id number] Cardene Inj 25 MG In NS Inj 240 250 / 250 1500 / 1500 ML @ 5 MG/HR 50 mls/hr IV.CONT TITRATE PRN Rx#:[id number] Oral 0 / 0 0 / 0 Output: Urine 1100 / 1100 1100 / 1100 Other: # Voids 1 Date of Last Bowel Movement 04/01/18 04/01/18 # Bowel Movements 0 Narrative: GENERAL: NAD, A&Ox2, expressive aphasia HEAD: Normocephalic. NECK: Supple, trachea midline. No lymphadenopathy. EYES: No scleral icterus. No injection or drainage. CARDIOVASCULAR: Regular rate and rhythm without murmurs, gallops, or rubs. RESPIRATORY: Breath sounds equal bilaterally. No accessory muscle use. GASTROINTESTINAL: Abdomen soft, non-tender, nondistended. MUSCULOSKELETAL: No cyanosis, or edema. SKIN: Warm and dry. NEURO: No focal neurological deficits. Aggressive aphasia Results - Labs CBC & Chem 7: 04/02/18 05:37 04/02/18 05:37 Laboratory Results - last 24 hr 04/01/18 04/01/18 04/01/18 12:10 12:10 12:10 WBC 7.9 RBC 4.70 Hgb 14.8 POC Hgb (Calc) Hct 43.2 POC Hct MCV 92.0 MCH 31.4 MCHC 34.2 RDW 13.7 Plt Count 176 MPV 7.9 Neut % (Auto) 66.1 Lymph % (Auto) 22.1 [place] % (Auto) 9.6 H Eos % (Auto) 1.7 Baso % (Auto) 0.5 Neut # (Auto) 5.3 Lymph # (Auto) 1.8 [place] # (Auto) 0.8 Eos # (Auto) 0.1 Baso # (Auto) 0.0 WBC Differential . Differential Comment Auto diff final ESR PT 9.9 INR 1.0 APTT 25.1 POC Sodium Sodium 135 L POC Potassium Potassium 4.0 POC Chloride Chloride 98 Carbon Dioxide 27.5 Anion Gap 10 POC BUN BUN 19 H Creatinine 1.13 POC Creatinine Estimated GFR 65 L POC Glucose Random Glucose 189 H Calcium 9.1 Total Bilirubin AST ALT Alkaline Phosphatase Total Creatine Kinase 84 Troponin I 0.17 H Total Protein Albumin Triglycerides Cholesterol LDL Cholesterol, Calc HDL Cholesterol Cholesterol/HDL Ratio Vitamin B12 TSH Urine Color Urine Clarity Urine pH Ur Specific [place] Urine Protein Urine Glucose (UA) Urine Ketones Urine Occult Blood Urine Nitrate Urine Bilirubin Urine Urobilinogen Ur Leukocyte Esterase Urine RBC Urine WBC Micro UA Comment Ur Microscopic Review Urine Culture Comments Nasal Screen MRSA (PCR) Urine Opiates Screen Ur Barbiturates Screen Ur Amphetamines Screen U Benzodiazepines Scrn Urine Cocaine Screen U Cannabinoids Screen RPR 04/01/18 04/01/18 04/01/18 12:10 12:10 12:10 WBC RBC Hgb POC Hgb (Calc) 14.3 Hct POC Hct 42.0 MCV MCH MCHC RDW Plt Count MPV Neut % (Auto) Lymph % (Auto) [place] % (Auto) Eos % (Auto) Baso % (Auto) Neut # (Auto) Lymph # (Auto) [place] # (Auto) Eos # (Auto) Baso # (Auto) WBC Differential Differential Comment ESR 2 PT INR APTT POC Sodium 135 L Sodium POC Potassium 4.1 Potassium POC Chloride 94 L Chloride Carbon Dioxide Anion Gap POC BUN 18 BUN Creatinine POC Creatinine 1.0 Estimated GFR POC Glucose 184 H Random Glucose Calcium Total Bilirubin AST ALT Alkaline Phosphatase Total Creatine Kinase Troponin I Total Protein Albumin Triglycerides Cholesterol LDL Cholesterol, Calc HDL Cholesterol Cholesterol/HDL Ratio Vitamin B12 590 TSH 0.469 Urine Color Urine Clarity Urine pH Ur Specific [place] Urine Protein Urine Glucose (UA) Urine Ketones Urine Occult Blood Urine Nitrate Urine Bilirubin Urine Urobilinogen Ur Leukocyte Esterase Urine RBC Urine WBC Micro UA Comment Ur Microscopic Review Urine Culture Comments Nasal Screen MRSA (PCR) Urine Opiates Screen Ur Barbiturates Screen Ur Amphetamines Screen U Benzodiazepines Scrn Urine Cocaine Screen U Cannabinoids Screen RPR 04/01/18 04/01/18 04/01/18 13:10 16:00 17:58 WBC RBC Hgb POC Hgb (Calc) Hct POC Hct MCV MCH MCHC RDW Plt Count MPV Neut % (Auto) Lymph % (Auto) [place] % (Auto) Eos % (Auto) Baso % (Auto) Neut # (Auto) Lymph # (Auto) [place] # (Auto) Eos # (Auto) Baso # (Auto) WBC Differential Differential Comment ESR PT INR APTT POC Sodium Sodium POC Potassium Potassium POC Chloride Chloride Carbon Dioxide Anion Gap POC BUN BUN Creatinine POC Creatinine Estimated GFR POC Glucose Random Glucose Calcium Total Bilirubin AST ALT Alkaline Phosphatase Total Creatine Kinase Troponin I Total Protein Albumin Triglycerides Cholesterol LDL Cholesterol, Calc HDL Cholesterol Cholesterol/HDL Ratio Vitamin B12 TSH Urine Color Straw Urine Clarity Clear Urine pH 7.0 Ur Specific [place] 1.013 Urine Protein 100 H Urine Glucose (UA) 50 Urine Ketones Negative Urine Occult Blood Small H Urine Nitrate Negative Urine Bilirubin Negative Urine Urobilinogen Less than 2 Ur Leukocyte Esterase Negative Urine RBC 2 Urine WBC Less than 1 Micro UA Comment Culture not ind Ur Microscopic Review Not Reportable Urine Culture Comments Culture not ind Nasal Screen MRSA (PCR) Not detected Urine Opiates Screen Neg Ur Barbiturates Screen Neg Ur Amphetamines Screen Neg U Benzodiazepines Scrn Neg Urine Cocaine Screen Neg U Cannabinoids Screen Neg RPR 04/01/18 04/01/18 04/02/18 18:47 21:00 05:37 WBC RBC Hgb POC Hgb (Calc) Hct POC Hct MCV MCH MCHC RDW Plt Count MPV Neut % (Auto) Lymph % (Auto) [place] % (Auto) Eos % (Auto) Baso % (Auto) Neut # (Auto) Lymph # (Auto) [place] # (Auto) Eos # (Auto) Baso # (Auto) WBC Differential Differential Comment ESR PT INR APTT POC Sodium Sodium POC Potassium Potassium POC Chloride Chloride Carbon Dioxide Anion Gap POC BUN BUN Creatinine POC Creatinine Estimated GFR POC Glucose 134 H Random Glucose Calcium Total Bilirubin AST ALT Alkaline Phosphatase Total Creatine Kinase Troponin I 0.13 H Total Protein Albumin Triglycerides Cholesterol LDL Cholesterol, Calc HDL Cholesterol Cholesterol/HDL Ratio Vitamin B12 TSH Urine Color Urine Clarity Urine pH Ur Specific [place] Urine Protein Urine Glucose (UA) Urine Ketones Urine Occult Blood Urine Nitrate Urine Bilirubin Urine Urobilinogen Ur Leukocyte Esterase Urine RBC Urine WBC Micro UA Comment Ur Microscopic Review Urine Culture Comments Nasal Screen MRSA (PCR) Urine Opiates Screen Ur Barbiturates Screen Ur Amphetamines Screen U Benzodiazepines Scrn Urine Cocaine Screen U Cannabinoids Screen RPR Nonreactive 04/02/18 04/02/18 04/02/18 05:37 05:37 08:20 WBC 10.6 RBC 4.65 Hgb 14.5 POC Hgb (Calc) Hct 43.0 POC Hct MCV 92.4 MCH 31.2 MCHC 33.8 RDW 13.7 Plt Count 182 MPV 7.3 Neut % (Auto) 72.0 H Lymph % (Auto) 16.7 [place] % (Auto) 9.0 H Eos % (Auto) 1.7 Baso % (Auto) 0.6 Neut # (Auto) 7.6 Lymph # (Auto) 1.8 [place] # (Auto) 1.0 H Eos # (Auto) 0.2 Baso # (Auto) 0.1 WBC Differential . Differential Comment Auto diff final ESR PT INR APTT POC Sodium Sodium 141 POC Potassium Potassium 3.6 POC Chloride Chloride 104 Carbon Dioxide 25.8 Anion Gap 11 POC BUN BUN 16 Creatinine 0.92 POC Creatinine Estimated GFR 83 L POC Glucose 160 H Random Glucose 148 H Calcium 8.0 L D Total Bilirubin 0.5 AST 15 ALT 20 Alkaline Phosphatase 95 Total Creatine Kinase Troponin I 0.12 H Total Protein 6.3 L Albumin 3.4 Triglycerides 102 Cholesterol 132 LDL Cholesterol, Calc 67 HDL Cholesterol 44.4 Cholesterol/HDL Ratio 2.97 Vitamin B12 TSH Urine Color Urine Clarity Urine pH Ur Specific [place] Urine Protein Urine Glucose (UA) Urine Ketones Urine Occult Blood Urine Nitrate Urine Bilirubin Urine Urobilinogen Ur Leukocyte Esterase Urine RBC Urine WBC Micro UA Comment Ur Microscopic Review Urine Culture Comments Nasal Screen MRSA (PCR) Urine Opiates Screen Ur Barbiturates Screen Ur Amphetamines Screen U Benzodiazepines Scrn Urine Cocaine Screen U Cannabinoids Screen RPR - Imaging Impressions Head CT 04/01/18 12:15 CONCLUSION: 1. Chronic ischemic changes and old right cerebellar infarct. 2. No evidence of acute infarct, hemorrhage, mass or edema. Report was called by Dr. Lucas to the ordering ED physician at [id number].] Head CTA 04/01/18 12:15 CONCLUSION: No evidence of proximal thrombus or significant steno-occlusive disease. Report was called by [Shayy to Dr. Mckinley at 1244. ] Neck CTA 04/01/18 12:15 CONCLUSION: 1. Moderate calcified and noncalcified plaque in the left carotid bifurcation with moderate narrowing at the origin of the internal carotid artery measuring 50%. 2. Widely patent right carotid bifurcation status post endarterectomy. 3. Symmetric patent vertebral arteries. Head MRI 04/01/18 17:36 CONCLUSION: 1. No bleed, acute infarct or other acute intracranial abnormality. 2. Chronic white matter changes. 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 Assessment and Plan - Plan 63 year old male admitted with hypertensive emergency, slurred speech, EKG changes and troponin elevation. Slurred Speech Expressive aphasia Acute encephalopathy Symptoms are recurring today Etiology may be related to HTN Emergency MRI Brain negative evidence of yesterday Repeat MRI brain due to recurrence of symptoms EEG. Neurology following HTN Emergency on HTN Cardene drip as needed Follow BP Continue baseline treatments, adjust if needed Wean cardene drip as tolerated EKG Changes Troponin Elevation Troponin levels have remained stable No acute concerns for myocardial infarction as an etiology No chest pain Follow on telemetry Etiology likely related to Diabetes mellitus type 2 Follow blood sugars Insulin sliding scale Diabetic diet DVT prophylaxis SCDs
--- NOTE | 2018-04-02 11:19 | ECG ---
Date Performed: 04/01/2018 Time Performed: 12:16:49 PTAGE: 63 years EKG: Sinus rhythm LEFT ATRIAL ENLARGEMENT INTRAVENTRICULAR CONDUCTION DELAY Nonspecific ST and T wave abnormalities spicer ggestive of possible LVH. These are much more prominent than previous tracing and may represent infer olateral ischemia. Clinical correlation is recommended ABNORMAL ECG PREVIOUS TRACING : 05/05/17 DOCTOR: Mirza Perez Interpretating Date/Time 04/02/2018 11:18:06
[2018-04-02 11:38] LABS: Activated Partial Thrombo Time 26.2 sec (23.4-31.7); Prothrombin Time 10.6 sec (9.8-11.6)
--- NOTE | 2018-04-02 11:51 | P.PNCA ---
Subjective Interval history: Patient is having expressive aphasia this morning and is hypertensive. Patient states that he is leaving and does not believe that he is having expressive aphasia. Medications and Allergies Allergies Allergy/AdvReac Type Severity Reaction Status Date / Time No Known Allergies Allergy Verified 04/01/18 12:15 Home Medications Medication Instructions Recorded Confirmed Type aspirin 325 mg PO DAILY 04/01/18 04/01/18 History carvedilol [Coreg] 3.125 mg PO BID 04/01/18 04/01/18 History hydrochlorothiazide 25 mg PO DAILY 04/01/18 04/01/18 History metformin 500 mg PO BID 04/01/18 04/01/18 History Active Medications: Active Medications Al Hydroxide/Mg Hydroxide (Milk Of Veronika Wood) 30 ml PO Q12H PRN PRN Reason: Mild Constipation Aspirin (Aspirin) 325 mg PO DAILY [facility] Last Admin: 04/02/18 08:18 Dose: 325 mg Carvedilol (Coreg) 6.25 mg PO BID [facility] Chlorhexidine Gluconate (Chlorhexidine 2% Cloth) 3 pack TOPICAL DAILY@0400 [facility] Stop: 04/07/18 03:59 Last Admin: 04/02/18 03:08 Dose: 3 pack Chlorhexidine Gluconate (Chlorhexidine 2% Cloth) 3 pack TOPICAL DAILY@0400 PRN PRN Reason: Extra cloth needed Stop: 04/07/18 03:59 Clopidogrel Bisulfate (Plavix) 75 mg PO DAILY [facility] Last Admin: 04/02/18 08:19 Dose: 75 mg Dextrose (D50w Vial) 50 ml IV.PUSH UNSCH PRN PRN Reason: PER HYPOGLYCEMIA PROTOCOL Glucagon (Glucagon Inj) 1 mg OTHER PRN PRN PRN Reason: for Hypoglycemia Protocol Hydrochlorothiazide (Hydrodiuril) 25 mg PO DAILY [facility] Last Admin: 04/02/18 08:19 Dose: 25 mg Sodium Chloride (Ns Inj) 1,000 mls @ 70 mls/hr IV.CONT .[id number] [facility] Last Admin: 04/02/18 08:21 Dose: 70 mls/hr Nicardipine/Sodium Chloride (Cardene 20 Mg/Ns 200 Ml Premix) 20 mg in 200 mls @ 50 mls/hr IV.SIG TITRATE PRN; Protocol PRN Reason: PER PROTOCOL Last Admin: 04/02/18 10:05 Dose: 5 mg/hr, 50 mls/hr Heparin Sodium/Dextrose (Heparin/D5w 25,000 U/250 Ml) 25,000 unit in 250 mls @ 10 mls/hr IV.CONT TITRATE PRN; Protocol PRN Reason: Per Protocol Insulin Aspart (Novolog Insulin Correctional Sugar Inj) 0 unit SQ ACHS KARY; Protocol Last Admin: 04/02/18 08:21 Dose: 1 unit Lisinopril (Prinivil) 20 mg PO DAILY [facility] Last Admin: 04/02/18 08:19 Dose: 20 mg Lorazepam (Ativan Inj) 0.5 mg IV.PUSH ONCE PRN PRN Reason: aggitation Stop: 04/03/18 10:59 Ondansetron HCl (Zofran Inj) 4 mg IV.PUSH Q6H PRN PRN Reason: NAUSEA OR VOMITING Sodium Chloride (Ns Flush) 2 ml IV.FLUSH PRN PRN PRN Reason: FLUSH AFTER USING IV ACCESS Last Admin: 04/01/18 12:47 Dose: 2 ml Physical Exam Vital signs: Vital Signs 04/01/18 12:10 04/01/18 12:29 04/01/18 13:38 Temperature 97.9 F 97.8 F 97.7 F Pulse Rate 68 70 70 Respiratory Rate 16 17 16 Blood Pressure 221/106 H 217/99 H 152/74 H Pulse Oximetry 98 97 98 04/01/18 14:03 04/01/18 14:57 04/01/18 16:00 Temperature 97.8 F 97.8 F 97.9 F Pulse Rate 68 97 H 75 Respiratory Rate 16 17 15 Blood Pressure 148/64 H 167/81 H 171/84 H Pulse Oximetry 98 98 96 04/01/18 17:00 04/01/18 17:23 04/01/18 18:00 Temperature Pulse Rate 80 85 Respiratory Rate 15 15 Blood Pressure 183/88 H 169/80 H Pulse Oximetry 97 98 96 04/01/18 20:00 04/01/18 22:14 04/01/18 22:21 Temperature Pulse Rate 88 93 H Respiratory Rate 17 Blood Pressure 163/90 H Pulse Oximetry 95 97 99 04/01/18 22:41 04/01/18 22:51 04/01/18 23:00 Temperature Pulse Rate 89 85 89 Respiratory Rate Blood Pressure 136/104 H 164/74 H 164/75 H Pulse Oximetry 98 99 98 04/01/18 23:20 04/01/18 23:40 04/02/18 00:00 Temperature 98 F Pulse Rate 91 H 94 H 93 H Respiratory Rate 14 Blood Pressure 165/75 H 168/86 H 172/75 H Pulse Oximetry 98 99 98 04/02/18 00:20 04/02/18 00:41 04/02/18 01:00 Temperature Pulse Rate 95 H 97 H 95 H Respiratory Rate Blood Pressure 171/75 H 155/69 H 165/72 H Pulse Oximetry 98 98 97 04/02/18 01:20 04/02/18 01:40 04/02/18 02:00 Temperature Pulse Rate 94 H 95 H 101 H Respiratory Rate 16 20 Blood Pressure 164/70 H 151/67 H 154/122 H Pulse Oximetry 98 97 96 04/02/18 02:20 04/02/18 02:40 04/02/18 03:00 Temperature Pulse Rate 100 H 96 H 96 H Respiratory Rate 17 17 18 Blood Pressure 151/69 H 151/69 H 162/69 H Pulse Oximetry 97 99 97 04/02/18 03:20 04/02/18 03:40 04/02/18 04:00 Temperature 98.3 F Pulse Rate 97 H 98 H 92 H Respiratory Rate 17 19 18 Blood Pressure 148/67 H 151/65 H 145/63 H Pulse Oximetry 98 97 98 04/02/18 04:20 04/02/18 04:40 04/02/18 05:00 Temperature Pulse Rate 93 H 100 H 100 H Respiratory Rate 20 23 18 Blood Pressure 146/64 H 139/64 156/67 H Pulse Oximetry 97 98 97 04/02/18 05:20 04/02/18 05:41 04/02/18 06:00 Temperature Pulse Rate 104 H 101 H 97 H Respiratory Rate 20 24 19 Blood Pressure 165/71 H 158/70 H 164/68 H Pulse Oximetry 97 99 98 04/02/18 08:57 Temperature Pulse Rate Respiratory Rate Blood Pressure Pulse Oximetry 99 Intake & Output 04/01/18 04/02/18 04/02/18 18:59 06:59 18:59 Intake Total 250 / 250 1500 / 1500 1000 / 1000 Output Total 1100 / 1100 1100 / 1100 Balance -850 / -850 400 / 400 1000 / 1000 Weight 69.8 kg 81 kg Intake: IV 250 / 250 1500 / 1500 1000 / 1000 NS Inj 1,000 ML @ 70 mls/hr IV. 1000 / 1000 CONT .[id number] [facility] Rx#:[id number] Cardene Inj 25 MG In NS Inj 240 250 / 250 1500 / 1500 ML @ 5 MG/HR 50 mls/hr IV.CONT TITRATE PRN Rx#:[id number] Oral 0 / 0 0 / 0 Output: Urine 1100 / 1100 1100 / 1100 Other: # Voids 1 Date of Last Bowel Movement 04/01/18 04/01/18 # Bowel Movements 0 - Constitutional no acute distress - Routine HEENT Exam Head: Present: normocephalic Eye: Present: PERRL ENT: Present: mucous membranes moist - Routine Neck Exam Present: full ROM - Routine Respiratory Exam Present: crackles Comments: fine crackles noted over bases bilateral. - Routine Cardiovascular Exam Present: S1, S2, tachycardia. Absent: murmur, gallop, rubs - Routine Abdominal Exam Present: normoactive bowel sounds - Routine Extremities Exam Present: full ROM, pulses intact, normal capillary refill. Absent: cyanosis, clubbing, edema - Routine Skin Exam Present: intact - Routine Neurological Exam Present: alert expressive aphasia and confusion - Routine Psychiatric Exam Present: agitated Results 04/02/18 05:37 04/02/18 05:37 Cardiac Enzymes 04/01/18 04/01/18 04/02/18 Range/Units 12:10 18:47 05:37 AST 15 (15-37) U/L Troponin I 0.17 H 0.13 H 0.12 H (0.02-0.05) ng/mL Coagulation 04/01/18 04/02/18 Range/Units 12:10 11:00 PT 9.9 10.6 (9.8-11.6) sec APTT 25.1 26.2 (23.4-31.7) sec Lipids 04/02/18 Range/Units 05:37 Triglycerides 102 (42-150) mg/dL Cholesterol 132 (120-200) mg/dL HDL Cholesterol 44.4 (40.0-60.0) mg/dL Cholesterol/HDL Ratio 2.97 Ratio CBC 04/01/18 04/02/18 Range/Units 12:10 05:37 WBC 7.9 10.6 (4.0-11.0) th/mm3 RBC 4.70 4.65 (4.50-5.90) mil/mm3 Hgb 14.8 14.5 (13.0-17.0) gm/dL Hct 43.2 43.0 (39.0-51.0) % Plt Count 176 182 (150-450) th/mm3 Neut # (Auto) 5.3 7.6 (1.8-7.7) th/mm3 Lymph # (Auto) 1.8 1.8 (1.0-4.8) th/mm3 [place] # (Auto) 0.8 1.0 H (0.0-0.9) th/mm3 Eos # (Auto) 0.1 0.2 (0.0-0.4) th/mm3 Baso # (Auto) 0.0 0.1 (0.0-0.2) th/mm3 Comprehensive Metabolic Panel 04/01/18 04/02/18 Range/Units 12:10 05:37 Sodium 135 L 141 (136-145) meq/L Potassium 4.0 3.6 (3.5-5.1) meq/L Chloride 98 104 (98-107) meq/L Carbon Dioxide 27.5 25.8 (21.0-32.0) meq/L BUN 19 H 16 (7-18) mg/dL Creatinine 1.13 0.92 (0.60-1.30) mg/dL Calcium 9.1 8.0 L D (8.5-10.1) mg/dL AST 15 (15-37) U/L ALT 20 (12-78) U/L Alkaline Phosphatase 95 (45-117) U/L Total Protein 6.3 L (6.4-8.2) g/dL Albumin 3.4 (3.4-5.0) g/dL Intake and Output 04/01/18 04/02/18 04/02/18 22:59 06:59 14:59 Intake Total 750 / 750 1000 / 1000 1000 / 1000 Output Total 300 / 300 1100 / 1100 Balance 450 / 450 -100 / -100 1000 / 1000 Intake: IV 750 / 750 1000 / 1000 1000 / 1000 NS Inj 1,000 ML @ 70 mls/hr IV. 1000 / 1000 CONT .[id number] [facility] Rx#:[id number] Cardene Inj 25 MG In NS Inj 240 750 / 750 1000 / 1000 ML @ 5 MG/HR 50 mls/hr IV.CONT TITRATE PRN Rx#:[id number] Oral 0 / 0 0 / 0 Output: Urine 300 / 300 1100 / 1100 Other: Date of Last Bowel Movement 04/01/18 04/01/18 # Bowel Movements 0 Weight 81 kg - Imaging and Cardiology Imaging: Impressions Head CT 04/01/18 12:15 CONCLUSION: 1. Chronic ischemic changes and old right cerebellar infarct. 2. No evidence of acute infarct, hemorrhage, mass or edema. Report was called by Dr. Lucas to the ordering ED physician at 1235.] Head CTA 04/01/18 12:15 CONCLUSION: No evidence of proximal thrombus or significant steno-occlusive disease. Report was called by [Shayy to Dr. Mckinley at 1244. ] Neck CTA 04/01/18 12:15 CONCLUSION: 1. Moderate calcified and noncalcified plaque in the left carotid bifurcation with moderate narrowing at the origin of the internal carotid artery measuring 50%. 2. Widely patent right carotid bifurcation status post endarterectomy. 3. Symmetric patent vertebral arteries. Head MRI 04/01/18 17:36 CONCLUSION: 1. No bleed, acute infarct or other acute intracranial abnormality. 2. Chronic white matter changes. 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 Assessment and Plan - Assessment (1) Transient cerebral ischemia Code(s): G45.9 - Transient cerebral ischemic attack, unspecified Status: Acute (2) Hypertensive emergency Code(s): I16.1 - Hypertensive emergency Status: Acute (3) Elevated troponin Code(s): R74.8 - Abnormal levels of other serum enzymes Status: Acute - Plan Patient currently in SR on monitor, we will continue to monitor for possible paroxysmal atrial fibrillation. Troponin level is mildly elevated but not trending, no signs of acute coronary syndrome at this time. Continue to monitor patient on telemetry. Patient having another episode of expressive aphasia, neurology evaluation in progress. Patient is hypertensive at this time, we will give Coreg 3.125mg one time dose now and increase the dose. Patient was placed on a Cardene gtt but patient pulled out IV site. Patient to follow up with Dr. Simon post discharge from hospital The patient was seen and evaluated by Dr. Morrell who participated in care, management and decision making. - Attending Attestation Patient seen and examined. I reviewed and agree with the evaluation and plan as presented. Continue and titrate antihypertensive tx. Neurology evaluation in progress.
--- NOTE | 2018-04-02 12:24 | MR ---
EXAM DATE: 04/02/2018 12:12 PM EST AGE/SEX: 63 years / Male INDICATIONS: CVA. Change in mental status. Increased aphasia. CLINICAL DATA: This is the patient's subsequent encounter. Patient reports that signs and symptoms h ave been present for 2 days and indicates a pain score of 0/10. MEDICAL/SURGICAL HISTORY: Hypertension. Diabetes. . Cardiac cath. COMPARISON: [facility] – [place], MR HEAD W & W/O CONTRAST, 04/01/2018. . TECHNIQUE: Multiplanar, multisequence examination of the brain was performed without contrast. FINDINGS: There is no evidence for intracranial hemorrhage, mass effect, mass lesions, edema, or extra-axial fl uid collections. The ventricles are slightly prominent probably due to atrophic changes. There are no signs of acute infarction for technique. The diffusion portion is unremarkable. Moderate degree of brain atrophy is seen. Moderate periventricular white matter changes are seen nonspecific mostly c onsistent with chronic small vessel ischemic changes. There is encephalomalacia in right lower cerebe llar hemisphere in addition to bilateral lacunar infarctions chronic in nature. CONCLUSION: Chronic small vessel ischemic and atrophic changes, old infarctions not significantly ch anged. Electronically signed by: Nathaniel Wilson MD 04/02/2018 12:22 PM EST
--- NOTE | 2018-04-02 12:44 | MG ---
cc: Casa Caceres MD, PhD TEST NUMBER: [id number] TECHNIQUE: This is a 17-channel EEG. DESCRIPTION: Background rhythm reveals a symmetrical alpha rhythm, frequency of 8 Hz, amplitude about 20 mV. There is some slowing in the theta range at 6 Hz, but the majority of the tracing is in the alpha frequency. There are no lateralizing features identified. There are no epileptiform features seen. There is occasional muscle artifact. Photic results in a modest driving response. INTERPRETATION: Normal electroencephalogram. Casa Caceres MD, PhD KENRICK/rh , 12:34 PM , 12:38 PM
[2018-04-02] MEDS: Heparin Drip 25,000 UNIT/250 ML BAG IV.CONT PRN (13:04)
--- NOTE | 2018-04-02 14:11 | ECHRPT ---
Indication: CVA/TIA CONCLUSIONS The left ventricular systolic function is normal with an estimated ejection fraction in the range of 55-60%. Normal left ventricular size. Moderate concentric left ventricular hypertrophy. No regional wall motion abnormalities are present. There is trace tricuspid valve regurgitation. The estimated pulmonary arterial pressure is 19.2 mmHg. BP: / HR: Rhythm: Sinus MEASUREMENTS (Male / Female) Normal Values Technical Quality:Good 2D ECHO LV Diastolic Diameter PLAX 5.0 cm 4.2 - 5.9 / 3.9 - 5.3 cm LV Systolic Diameter PLAX 3.8 cm IVS Diastolic Thickness 1.8 cm 0.6 - 1.0 / 0.6 - 0.9 cm LVPW Diastolic Thickness 1.7 cm 0.6 - 1.0 / 0.6 - 0.9 cm LV Relative Wall Thickness 0.7 LVOT Diameter 1.7 cm LV Ejection Fraction MOD 4C 55.6 % LV Ejection Fraction 4C AL 57.3 % M-MODE Aortic Root Diameter MM 2.5 cm LA Systolic Diameter MM 3.7 cm LA Ao Ratio MM 1.5 AV Cusp Separation MM 1.8 cm DOPPLER AV Peak Velocity 178.0 cm/s AV Peak Gradient 12.7 mmHg LVOT Peak Velocity 123.0 cm/s LVOT Peak Gradient 6.1 mmHg AV Area Cont Eq pk 1.6 cm MV Area PHT 8.1 cm TR Peak Velocity 152.0 cm/s TR Peak Gradient 9.2 mmHg Right Atrial Pressure 10.0 mmHg Pulmonary Artery Systolic Pressu 19.2 mmHg Right Ventricular Systolic Press 19.2 mmHg PV Peak Velocity 140.0 cm/s PV Peak Gradient 7.8 mmHg FINDINGS LEFT VENTRICLE The left ventricular systolic function is normal with an estimated ejection fraction in the range of 55-60%. Normal left ventricular size. Moderate concentric left ventricular hypertrophy. No regional wall motion abnormalities are present. RIGHT VENTRICLE Normal right ventricular size and systolic function. LEFT ATRIUM The left atrial size is normal. RIGHT ATRIUM The right atrial size is normal. ATRIAL SEPTUM Normal atrial septal thickness without atrial level shunting by limited color doppler interrogation. AORTA The aortic root and proximal ascending aorta are normal in size on limited imaging. MITRAL VALVE Structurally normal mitral valve. No mitral valve stenosis or regurgitation. AORTIC VALVE Trileaflet aortic valve. No aortic valve stenosis or regurgitation. TRICUSPID VALVE Structurally normal tricuspid valve. There is trace tricuspid valve regurgitation. The estimated pulmonary arterial pressure is 19.2 mmHg. PULMONARY VALVE No pulmonary valve regurgitation or stenosis. VESSELS The inferior vena cava is normal in size. PERICARDIUM No pericardial effusion. Pio Zamudio MD, FACC, [facility] [place] ([place]ronically Signed[place] Final Date:02 April 2018 14:10
[2018-04-02] MEDS: Carvedilol 6.25 MG Tablet PO SCH (20:24)
[2018-04-03] MEDS: niCARdipine 20mg/NS Premix 20 MG/200 ML PIGGYBACK IV.SIG PRN ×10 (00:31→21:10)
[2018-04-03 03:16] LABS: Hematocrit 40.1 % (39.0-51.0); Hemoglobin 13.7 gm/dL (13.0-17.0); Mean Corpuscular HGB Conc 34.2 % (32.0-36.0); Mean Corpuscular Hemoglobin 31.3 pg (27.0-34.0); Mean Corpuscular Volume 91.4 fL (80.0-100.0); Mean Platelet Volume 7.3 fL (7.0-11.0); Platelet Count 155 th/mm3 (150-450); Red Blood Count 4.39 mil/mm3 (4.50-5.90); Red Cell Distribution Width 13.8 % (11.6-17.2); White Blood Count 10.7 th/mm3 (4.0-11.0)
[2018-04-03] MEDS: Chlorhexidine Gluconate 2% 1 Pack (2 Cloths) TOPICAL SCH (03:26)
--- NOTE | 2018-04-03 08:48 | P.PNIM ---
Subjective Interval history: Confusion remains. Patient is not oriented this morning. Blood pressures have been relatively stabilized maintaining under 190 mmHg. Permissive hypertension for possibility of CVA. Patient did pull out on IV this morning and blood pressures are subsequently elevated. Restraints are present. Physical Exam Vital signs: Vital Signs 04/02/18 08:57 04/02/18 09:00 04/02/18 10:00 Temperature Pulse Rate 107 H 101 H Respiratory Rate 20 18 Blood Pressure 168/75 H 187/84 H Pulse Oximetry 99 95 91 L 04/02/18 11:00 04/02/18 12:00 04/02/18 13:16 Temperature 100.9 F H Pulse Rate 110 H 125 H 120 H Respiratory Rate 19 20 Blood Pressure 172/79 H 163/87 H Pulse Oximetry 94 L 93 L 92 L 04/02/18 13:20 04/02/18 13:41 04/02/18 14:00 Temperature Pulse Rate 117 H 118 H 117 H Respiratory Rate 24 27 H Blood Pressure 181/78 H 191/86 H 176/129 H Pulse Oximetry 93 L 92 L 90 L 04/02/18 14:20 04/02/18 14:40 04/02/18 15:00 Temperature Pulse Rate 119 H 119 H 121 H Respiratory Rate 23 23 26 H Blood Pressure 175/97 H 176/91 H 187/85 H Pulse Oximetry 90 L 91 L 90 L 04/02/18 15:20 04/02/18 15:47 04/02/18 16:00 Temperature 99.4 F Pulse Rate 119 H 118 H 120 H Respiratory Rate 23 22 28 H Blood Pressure 186/94 H 178/83 H Pulse Oximetry 90 L 89 L 92 L 04/02/18 16:01 04/02/18 16:18 04/02/18 16:20 Temperature Pulse Rate 121 H 115 H 115 H Respiratory Rate 24 28 H 21 Blood Pressure 181/78 H 178/82 H 177/84 H Pulse Oximetry 93 L 93 L 93 L 04/02/18 16:41 04/02/18 17:00 04/02/18 17:11 Temperature Pulse Rate 120 H 114 H 117 H Respiratory Rate 24 23 25 H Blood Pressure 177/82 H 181/82 H 182/81 H Pulse Oximetry 89 L 91 L 92 L 04/02/18 17:20 04/02/18 17:41 04/02/18 17:56 Temperature Pulse Rate 115 H 117 H 112 H Respiratory Rate 26 H 26 H 24 Blood Pressure 181/85 H 184/79 H 169/77 H Pulse Oximetry 91 L 94 L 91 L 04/02/18 18:00 04/02/18 18:21 04/02/18 18:26 Temperature Pulse Rate 112 H 116 H 109 H Respiratory Rate 21 26 H 21 Blood Pressure 177/78 H 214/82 H 172/97 H Pulse Oximetry 92 L 94 L 94 L 04/02/18 18:40 04/02/18 18:53 04/02/18 19:00 Temperature Pulse Rate 115 H 105 H 111 H Respiratory Rate 28 H 24 30 H Blood Pressure 190/86 H 167/76 H 167/72 H Pulse Oximetry 94 L 94 L 94 L 04/02/18 19:20 04/02/18 20:00 04/02/18 20:06 Temperature 98.4 F Pulse Rate 107 H 93 H Respiratory Rate 26 H 22 Blood Pressure 156/82 H 153/72 H Pulse Oximetry 93 L 95 95 04/02/18 20:20 04/02/18 20:40 04/02/18 20:48 Temperature Pulse Rate 96 H 101 H Respiratory Rate 25 H 24 Blood Pressure 152/74 H 171/78 H Pulse Oximetry 96 94 L 94 L 04/02/18 21:00 04/02/18 21:21 04/02/18 21:40 Temperature Pulse Rate 103 H 92 H 91 H Respiratory Rate 25 H 22 21 Blood Pressure 181/81 H 156/72 H 158/72 H Pulse Oximetry 96 95 95 04/02/18 22:00 04/02/18 22:20 04/02/18 22:40 Temperature Pulse Rate 94 H 95 H 96 H Respiratory Rate 22 22 22 Blood Pressure 157/74 H 165/77 H 168/77 H Pulse Oximetry 94 L 94 L 94 L 04/02/18 23:00 04/02/18 23:20 04/02/18 23:40 Temperature Pulse Rate 97 H 96 H 97 H Respiratory Rate 22 22 23 Blood Pressure 168/77 H 167/78 H 165/77 H Pulse Oximetry 95 93 L 93 L 04/03/18 00:00 04/03/18 00:01 04/03/18 00:21 Temperature 99.3 F Pulse Rate 113 H 115 H 104 H Respiratory Rate 27 H 27 H 29 H Blood Pressure 172/103 H 182/73 H Pulse Oximetry 88 L 93 L 96 04/03/18 00:40 04/03/18 01:00 04/03/18 01:20 Temperature Pulse Rate 102 H 88 89 Respiratory Rate 29 H 22 23 Blood Pressure 179/75 H 143/63 H 140/67 Pulse Oximetry 93 L 94 L 94 L 04/03/18 01:40 04/03/18 02:00 04/03/18 02:01 Temperature Pulse Rate 110 H 98 H 99 H Respiratory Rate 23 26 H 26 H Blood Pressure 185/88 H 166/70 H Pulse Oximetry 93 L 93 L 91 L 04/03/18 02:20 04/03/18 02:40 04/03/18 03:00 Temperature Pulse Rate 89 91 H 90 Respiratory Rate 22 24 25 H Blood Pressure 147/67 H 144/66 H 146/67 H Pulse Oximetry 92 L 92 L 93 L 04/03/18 03:20 04/03/18 03:40 04/03/18 04:00 Temperature 98.3 F Pulse Rate 88 104 H 100 H Respiratory Rate 25 H 28 H 26 H Blood Pressure 150/68 H 157/71 H 163/74 H Pulse Oximetry 93 L 91 L 90 L 04/03/18 04:20 04/03/18 04:40 04/03/18 05:00 Temperature Pulse Rate 91 H 90 92 H Respiratory Rate 26 H 22 29 H Blood Pressure 142/66 H 151/70 H 160/74 H Pulse Oximetry 93 L 91 L 91 L 04/03/18 05:20 04/03/18 05:41 04/03/18 06:00 Temperature Pulse Rate 90 109 H 111 H Respiratory Rate 27 H 27 H 23 Blood Pressure 182/76 H 164/98 H Pulse Oximetry 92 L 88 L 93 L 04/03/18 06:01 04/03/18 06:06 04/03/18 08:39 Temperature Pulse Rate 113 H 115 H Respiratory Rate 31 H 27 H Blood Pressure 172/101 H 178/81 H Pulse Oximetry 96 96 96 Intake & Output 04/02/18 04/03/18 04/03/18 18:59 06:59 18:59 Intake Total 1425 / 1425 2400 / 2400 Output Total 1250 / 1250 450 / 450 Balance 175 / 175 1950 / 1950 Weight 78 kg Intake: IV 1400 / 1400 2400 / 2400 NS Inj 1,000 ML @ 70 mls/hr IV. 1000 / 1000 1000 / 1000 CONT .[id number] [facility] Rx#:[id number] Cardene 20 mg/NS 200 ml Premix 400 / 400 1400 / 1400 20 mg In 200 ml @ 5 MG/HR 50 mls/hr IV.SIG TITRATE PRN Rx#: [id number] Oral 25 / 25 0 / 0 Output: Urine 1250 / 1250 450 / 450 Other: # Incontinent Voids 1 1 Date of Last Bowel Movement 04/01/18 04/01/18 # Bowel Movements 0 Narrative: GENERAL: NAD, A&Ox0, expressive aphasia HEAD: Normocephalic. NECK: Supple, trachea midline. No lymphadenopathy. EYES: No scleral icterus. No injection or drainage. CARDIOVASCULAR: Regular rate and rhythm without murmurs, gallops, or rubs. RESPIRATORY: Breath sounds equal bilaterally. No accessory muscle use. GASTROINTESTINAL: Abdomen soft, non-tender, nondistended. MUSCULOSKELETAL: No cyanosis, or edema. SKIN: Warm and dry. NEURO: No focal neurological deficits. Expressive aphasia Results - Labs CBC & Chem 7: 04/03/18 03:07 04/02/18 05:37 Laboratory Results - last 24 hr 04/02/18 04/02/18 04/02/18 05:37 11:00 13:04 WBC RBC Hgb Hct MCV MCH MCHC RDW Plt Count MPV PT 10.6 INR 1.0 APTT 26.2 POC Glucose 195 H RPR Nonreactive 04/02/18 04/02/18 04/02/18 17:16 20:23 20:38 WBC RBC Hgb Hct MCV MCH MCHC RDW Plt Count MPV PT INR APTT 37.0 H D POC Glucose 167 H 147 H RPR 04/03/18 04/03/18 03:07 03:07 WBC 10.7 RBC 4.39 L Hgb 13.7 Hct 40.1 MCV 91.4 MCH 31.3 MCHC 34.2 RDW 13.8 Plt Count 155 MPV 7.3 PT INR APTT 36.0 H POC Glucose RPR - Imaging Impressions Head MRI 04/02/18 14:00 CONCLUSION: Chronic small vessel ischemic and atrophic changes, old infarctions not significantly changed. Assessment and Plan - Plan 63 year old male admitted with hypertensive emergency, slurred speech, EKG changes and troponin elevation. CVA versus seizures. Allow permissive hypertension. Restraints for patient protection. Monitor clinically for improvement. Slurred Speech Expressive aphasia Acute encephalopathy Symptoms are recurring today Etiology may be related to HTN Emergency MRI Brain negative evidence of yesterday Repeat MRI brain due to recurrence of symptoms EEG. Neurology following HTN Emergency on HTN Cardene drip as needed Follow BP Continue baseline treatments, adjust if needed Wean cardene drip as tolerated EKG Changes Troponin Elevation Troponin levels have remained stable No acute concerns for myocardial infarction as an etiology No chest pain Follow on telemetry Etiology likely related to Diabetes mellitus type 2 Follow blood sugars Insulin sliding scale Diabetic diet DVT prophylaxis SCDs
[2018-04-03] MEDS: Aspirin 325 MG Tablet PO SCH (10:05)
[2018-04-03] MEDS: Insulin NovoLOG Aspart Correctional Sugar Inj SQ SCH ×4 (10:05→20:32)
[2018-04-03] MEDS: Lisinopril 20 MG Tablet PO SCH (10:06)
[2018-04-03] MEDS: Carvedilol 6.25 MG Tablet PO SCH ×2 (10:06→20:32)
[2018-04-03] MEDS: hydroCHLOROthiazide 25 MG Tablet PO SCH (10:06)
[2018-04-03] MEDS: Sod Chloride 0.9% Inj 1,000 ML IV.CONT SCH ×3 (10:06→22:32)
--- NOTE | 2018-04-03 14:34 | P.PNCA ---
Subjective Interval history: Patient is confused at times. Patient is still having expressive aphasia. Patient denies any CP, pressure, palpitations or dizziness. Medications and Allergies Allergies Allergy/AdvReac Type Severity Reaction Status Date / Time No Known Allergies Allergy Verified 04/01/18 12:15 Home Medications Medication Instructions Recorded Confirmed Type aspirin 325 mg PO DAILY 04/01/18 04/01/18 History carvedilol [Coreg] 3.125 mg PO BID 04/01/18 04/01/18 History hydrochlorothiazide 25 mg PO DAILY 04/01/18 04/01/18 History metformin 500 mg PO BID 04/01/18 04/01/18 History Active Medications: Active Medications Al Hydroxide/Mg Hydroxide (Milk Of Veronika Wood) 30 ml PO Q12H PRN PRN Reason: Mild Constipation Aspirin (Aspirin) 325 mg PO DAILY [facility] Last Admin: 04/03/18 10:05 Dose: 325 mg Carvedilol (Coreg) 12.5 mg PO BID [facility] Carvedilol (Coreg) 6.25 mg PO ONCE ONE Stop: 04/03/18 14:25 Chlorhexidine Gluconate (Chlorhexidine 2% Cloth) 3 pack TOPICAL DAILY@0400 [facility] Stop: 04/07/18 03:59 Last Admin: 04/03/18 03:26 Dose: 3 pack Chlorhexidine Gluconate (Chlorhexidine 2% Cloth) 3 pack TOPICAL DAILY@0400 PRN PRN Reason: Extra cloth needed Stop: 04/07/18 03:59 Clopidogrel Bisulfate (Plavix) 75 mg PO DAILY [facility] Last Admin: 04/03/18 10:06 Dose: 75 mg Dextrose (D50w Vial) 50 ml IV.PUSH UNSCH PRN PRN Reason: PER HYPOGLYCEMIA PROTOCOL Glucagon (Glucagon Inj) 1 mg OTHER PRN PRN PRN Reason: for Hypoglycemia Protocol Hydrochlorothiazide (Hydrodiuril) 25 mg PO DAILY [facility] Last Admin: 04/03/18 10:06 Dose: 25 mg Sodium Chloride (Ns Inj) 1,000 mls @ 70 mls/hr IV.CONT .[id number] [facility] Last Admin: 04/02/18 22:44 Dose: 70 mls/hr Nicardipine/Sodium Chloride (Cardene 20 Mg/Ns 200 Ml Premix) 20 mg in 200 mls @ 50 mls/hr IV.SIG TITRATE PRN; Protocol PRN Reason: PER PROTOCOL Last Admin: 04/03/18 10:00 Dose: 15 mg/hr, 150 mls/hr Heparin Sodium/Dextrose (Heparin/D5w 25,000 U/250 Ml) 25,000 unit in 250 mls @ 10 mls/hr IV.CONT TITRATE PRN; Protocol PRN Reason: Per Protocol Last Titration: 04/03/18 03:42 Dose: 1,200 units/hr, 12 mls/hr Sodium Chloride (Ns Inj) 1,000 mls @ 84 mls/hr IV.CONT .[id number] [facility]ARY Last Admin: 04/03/18 10:06 Dose: 84 mls/hr Insulin Aspart (Novolog Insulin Correctional Sugar Inj) 0 unit SQ ACHS KARY; Protocol Last Admin: 04/03/18 10:05 Dose: Not Given Lisinopril (Prinivil) 40 mg PO DAILY [facility] Lisinopril (Prinivil) 20 mg PO ONCE ONE Stop: 04/03/18 14:25 Ondansetron HCl (Zofran Inj) 4 mg IV.PUSH Q6H PRN PRN Reason: NAUSEA OR VOMITING Sodium Chloride (Ns Flush) 2 ml IV.FLUSH PRN PRN PRN Reason: FLUSH AFTER USING IV ACCESS Last Admin: 04/01/18 12:47 Dose: 2 ml Physical Exam Vital signs: Vital Signs 04/02/18 14:40 04/02/18 15:00 04/02/18 15:20 Temperature Pulse Rate 119 H 121 H 119 H Respiratory Rate 23 26 H 23 Blood Pressure 176/91 H 187/85 H 186/94 H Pulse Oximetry 91 L 90 L 90 L 04/02/18 15:47 04/02/18 16:00 04/02/18 16:01 Temperature 99.4 F Pulse Rate 118 H 120 H 121 H Respiratory Rate 22 28 H 24 Blood Pressure 178/83 H 181/78 H Pulse Oximetry 89 L 92 L 93 L 04/02/18 16:18 04/02/18 16:20 04/02/18 16:41 Temperature Pulse Rate 115 H 115 H 120 H Respiratory Rate 28 H 21 24 Blood Pressure 178/82 H 177/84 H 177/82 H Pulse Oximetry 93 L 93 L 89 L 04/02/18 17:00 04/02/18 17:11 04/02/18 17:20 Temperature Pulse Rate 114 H 117 H 115 H Respiratory Rate 23 25 H 26 H Blood Pressure 181/82 H 182/81 H 181/85 H Pulse Oximetry 91 L 92 L 91 L 04/02/18 17:41 04/02/18 17:56 04/02/18 18:00 Temperature Pulse Rate 117 H 112 H 112 H Respiratory Rate 26 H 24 21 Blood Pressure 184/79 H 169/77 H 177/78 H Pulse Oximetry 94 L 91 L 92 L 04/02/18 18:21 04/02/18 18:26 04/02/18 18:40 Temperature Pulse Rate 116 H 109 H 115 H Respiratory Rate 26 H 21 28 H Blood Pressure 214/82 H 172/97 H 190/86 H Pulse Oximetry 94 L 94 L 94 L 04/02/18 18:53 04/02/18 19:00 04/02/18 19:20 Temperature Pulse Rate 105 H 111 H 107 H Respiratory Rate 24 30 H 26 H Blood Pressure 167/76 H 167/72 H 156/82 H Pulse Oximetry 94 L 94 L 93 L 04/02/18 20:00 04/02/18 20:06 04/02/18 20:20 Temperature 98.4 F Pulse Rate 93 H 96 H Respiratory Rate 22 25 H Blood Pressure 153/72 H 152/74 H Pulse Oximetry 95 95 96 04/02/18 20:40 04/02/18 20:48 04/02/18 21:00 Temperature Pulse Rate 101 H 103 H Respiratory Rate 24 25 H Blood Pressure 171/78 H 181/81 H Pulse Oximetry 94 L 94 L 96 04/02/18 21:21 04/02/18 21:40 04/02/18 22:00 Temperature Pulse Rate 92 H 91 H 94 H Respiratory Rate 22 21 22 Blood Pressure 156/72 H 158/72 H 157/74 H Pulse Oximetry 95 95 94 L 04/02/18 22:20 04/02/18 22:40 04/02/18 23:00 Temperature Pulse Rate 95 H 96 H 97 H Respiratory Rate 22 22 22 Blood Pressure 165/77 H 168/77 H 168/77 H Pulse Oximetry 94 L 94 L 95 04/02/18 23:20 04/02/18 23:40 04/03/18 00:00 Temperature 99.3 F Pulse Rate 96 H 97 H 113 H Respiratory Rate 22 23 27 H Blood Pressure 167/78 H 165/77 H Pulse Oximetry 93 L 93 L 88 L 04/03/18 00:01 04/03/18 00:21 04/03/18 00:40 Temperature Pulse Rate 115 H 104 H 102 H Respiratory Rate 27 H 29 H 29 H Blood Pressure 172/103 H 182/73 H 179/75 H Pulse Oximetry 93 L 96 93 L 04/03/18 01:00 04/03/18 01:20 04/03/18 01:40 Temperature Pulse Rate 88 89 110 H Respiratory Rate 22 23 23 Blood Pressure 143/63 H 140/67 185/88 H Pulse Oximetry 94 L 94 L 93 L 04/03/18 02:00 04/03/18 02:01 04/03/18 02:20 Temperature Pulse Rate 98 H 99 H 89 Respiratory Rate 26 H 26 H 22 Blood Pressure 166/70 H 147/67 H Pulse Oximetry 93 L 91 L 92 L 04/03/18 02:40 04/03/18 03:00 04/03/18 03:20 Temperature Pulse Rate 91 H 90 88 Respiratory Rate 24 25 H 25 H Blood Pressure 144/66 H 146/67 H 150/68 H Pulse Oximetry 92 L 93 L 93 L 04/03/18 03:40 04/03/18 04:00 04/03/18 04:20 Temperature 98.3 F Pulse Rate 104 H 100 H 91 H Respiratory Rate 28 H 26 H 26 H Blood Pressure 157/71 H 163/74 H 142/66 H Pulse Oximetry 91 L 90 L 93 L 04/03/18 04:40 04/03/18 05:00 04/03/18 05:20 Temperature Pulse Rate 90 92 H 90 Respiratory Rate 22 29 H 27 H Blood Pressure 151/70 H 160/74 H 182/76 H Pulse Oximetry 91 L 91 L 92 L 04/03/18 05:41 04/03/18 06:00 04/03/18 06:01 Temperature Pulse Rate 109 H 111 H 113 H Respiratory Rate 27 H 23 31 H Blood Pressure 164/98 H 172/101 H Pulse Oximetry 88 L 93 L 96 04/03/18 06:06 04/03/18 07:00 04/03/18 08:00 Temperature Pulse Rate 115 H 102 H 96 H Respiratory Rate 27 H 27 H 20 Blood Pressure 178/81 H 179/77 H 165/73 H Pulse Oximetry 96 97 96 04/03/18 08:39 04/03/18 09:00 04/03/18 10:00 Temperature Pulse Rate 95 H 98 H Respiratory Rate 28 H 24 Blood Pressure 165/80 H 152/75 H Pulse Oximetry 96 94 L 97 Intake & Output 04/02/18 04/03/18 04/03/18 18:59 06:59 18:59 Intake Total 1425 / 1425 2400 / 2400 200 / 200 Output Total 1250 / 1250 450 / 450 Balance 175 / 175 1950 / 1950 200 / 200 Weight 78 kg Intake: IV 1400 / 1400 2400 / 2400 200 / 200 NS Inj 1,000 ML @ 70 mls/hr IV. 1000 / 1000 1000 / 1000 CONT .[id number] [facility] Rx#:[id number] Cardene 20 mg/NS 200 ml Premix 400 / 400 1400 / 1400 200 / 200 20 mg In 200 ml @ 5 MG/HR 50 mls/hr IV.SIG TITRATE PRN Rx#: [id number] Oral 25 / 25 0 / 0 Output: Urine 1250 / 1250 450 / 450 Other: # Incontinent Voids 1 1 Date of Last Bowel Movement 04/01/18 04/01/18 04/01/18 # Bowel Movements 0 - Constitutional no acute distress - Routine HEENT Exam Head: Present: normocephalic Eye: Present: PERRL ENT: Present: mucous membranes moist - Routine Neck Exam Present: full ROM - Routine Respiratory Exam Present: CTA bilaterally - Routine Cardiovascular Exam Present: S1, S2. Absent: murmur, gallop, rubs - Routine Abdominal Exam Present: normoactive bowel sounds - Routine Extremities Exam Present: full ROM, pulses intact, normal capillary refill. Absent: cyanosis, clubbing, edema - Routine Skin Exam Present: intact - Routine Neurological Exam Patient in 4 point restraints due to pulling lines out. - Detailed Neurological Exam: Coma Scale Eye Opening: Spontaneous Verbal Response: Confused Motor Response: Obey commands April Coma Scale Total: 14 - Routine Psychiatric Exam Present: unable to assess Results 04/03/18 03:07 04/02/18 05:37 Cardiac Enzymes 04/01/18 04/02/18 Range/Units 18:47 05:37 AST 15 (15-37) U/L Troponin I 0.13 H 0.12 H (0.02-0.05) ng/mL Coagulation 04/02/18 04/02/18 04/03/18 Range/Units 11:00 20:38 03:07 PT 10.6 (9.8-11.6) sec APTT 26.2 37.0 H D 36.0 H (23.4-31.7) sec 04/03/18 Range/Units 11:14 PT (9.8-11.6) sec APTT 39.8 H (23.4-31.7) sec Lipids 04/02/18 Range/Units 05:37 Triglycerides 102 (42-150) mg/dL Cholesterol 132 (120-200) mg/dL HDL Cholesterol 44.4 (40.0-60.0) mg/dL Cholesterol/HDL Ratio 2.97 Ratio CBC 04/02/18 04/03/18 Range/Units 05:37 03:07 WBC 10.6 10.7 (4.0-11.0) th/mm3 RBC 4.65 4.39 L (4.50-5.90) mil/mm3 Hgb 14.5 13.7 (13.0-17.0) gm/dL Hct 43.0 40.1 (39.0-51.0) % Plt Count 182 155 (150-450) th/mm3 Neut # (Auto) 7.6 (1.8-7.7) th/mm3 Lymph # (Auto) 1.8 (1.0-4.8) th/mm3 Iron # (Auto) 1.0 H (0.0-0.9) th/mm3 Eos # (Auto) 0.2 (0.0-0.4) th/mm3 Baso # (Auto) 0.1 (0.0-0.2) th/mm3 Comprehensive Metabolic Panel 04/02/18 Range/Units 05:37 Sodium 141 (136-145) meq/L Potassium 3.6 (3.5-5.1) meq/L Chloride 104 (98-107) meq/L Carbon Dioxide 25.8 (21.0-32.0) meq/L BUN 16 (7-18) mg/dL Creatinine 0.92 (0.60-1.30) mg/dL Calcium 8.0 L D (8.5-10.1) mg/dL AST 15 (15-37) U/L ALT 20 (12-78) U/L Alkaline Phosphatase 95 (45-117) U/L Total Protein 6.3 L (6.4-8.2) g/dL Albumin 3.4 (3.4-5.0) g/dL Intake and Output 04/02/18 04/03/18 04/03/18 22:59 06:59 14:59 Intake Total 1825 / 1825 1000 / 1000 200 / 200 Output Total 1250 / 1250 450 / 450 Balance 575 / 575 550 / 550 200 / 200 Intake: IV 1800 / 1800 1000 / 1000 200 / 200 NS Inj 1,000 ML @ 70 mls/hr IV. 1000 / 1000 CONT .[id number] [facility] Rx#:[id number] Cardene 20 mg/NS 200 ml Premix 800 / 800 1000 / 1000 200 / 200 20 mg In 200 ml @ 5 MG/HR 50 mls/hr IV.SIG TITRATE PRN Rx#: [id number] Oral 25 / 25 0 / 0 Output: Urine 1250 / 1250 450 / 450 Other: # Incontinent Voids 1 1 Date of Last Bowel Movement 04/01/18 04/01/18 04/01/18 # Bowel Movements 0 Weight 78 kg - Imaging and Cardiology Imaging: Impressions Head MRI 04/01/18 17:36 CONCLUSION: 1. No bleed, acute infarct or other acute intracranial abnormality. 2. Chronic white matter changes. 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 Head MRI 04/02/18 14:00 CONCLUSION: Chronic small vessel ischemic and atrophic changes, old infarctions not significantly changed. Assessment and Plan - Assessment (1) Transient cerebral ischemia Code(s): G45.9 - Transient cerebral ischemic attack, unspecified Status: Acute (2) Hypertensive emergency Code(s): I16.1 - Hypertensive emergency Status: Acute (3) Elevated troponin Code(s): R74.8 - Abnormal levels of other serum enzymes Status: Acute - Plan Patient remains hypertensive on a Cardene gtt. We will increase his Coreg to 12.5mg PO BID and Lisinopril to 40mg PO QD. We will also give an extra dose of Coreg 6.25 and Lisinopril 20mg now. Wean Cardene gtt as tolerated. Patient continues to have episodes of expressive aphasia, MRI was repeated and is negative for an acute stroke; neurology evaluation in progress. Patient to follow up with Dr. Simon post discharge from the hospital The patient was seen and evaluated by Dr. Morrell who participated in care, management and decision making. - Attending Attestation Patient seen and examined. I reviewed and agree with the evaluation and plan as presented. Continue and titrate BP control. Neurology evaluation in progress.
[2018-04-03] MEDS ORDERED: Carvedilol 6.25 MG Tablet PO ONE (15:00)
[2018-04-03] MEDS ORDERED: Lisinopril 20 MG Tablet PO ONE (15:00)
[2018-04-03 15:37] LABS: Anti-Nuclear Antibody Screen Neg (Neg)
--- NOTE | 2018-04-03 21:17 | P.PNNEU ---
Subjective Subjective Comments: no new sx. He states his speech is now normal. denies focal weakness. On iv heparin, plavix, asa Active Medications: Active Medications Al Hydroxide/Mg Hydroxide (Milk Of Veronika Wood) 30 ml PO Q12H PRN PRN Reason: Mild Constipation Aspirin (Aspirin) 325 mg PO DAILY [facility] Last Admin: 04/03/18 10:05 Dose: 325 mg Carvedilol (Coreg) 12.5 mg PO BID [facility] Last Admin: 04/03/18 20:32 Dose: 12.5 mg Chlorhexidine Gluconate (Chlorhexidine 2% Cloth) 3 pack TOPICAL DAILY@0400 [facility] Stop: 04/07/18 03:59 Last Admin: 04/03/18 03:26 Dose: 3 pack Chlorhexidine Gluconate (Chlorhexidine 2% Cloth) 3 pack TOPICAL DAILY@0400 PRN PRN Reason: Extra cloth needed Stop: 04/07/18 03:59 Dextrose (D50w Vial) 50 ml IV.PUSH UNSCH PRN PRN Reason: PER HYPOGLYCEMIA PROTOCOL Glucagon (Glucagon Inj) 1 mg OTHER PRN PRN PRN Reason: for Hypoglycemia Protocol Hydrochlorothiazide (Hydrodiuril) 25 mg PO DAILY [facility] Last Admin: 04/03/18 10:06 Dose: 25 mg Sodium Chloride (Ns Inj) 1,000 mls @ 70 mls/hr IV.CONT .[id number] [facility] Last Admin: 04/03/18 15:03 Dose: 70 mls/hr Nicardipine/Sodium Chloride (Cardene 20 Mg/Ns 200 Ml Premix) 20 mg in 200 mls @ 50 mls/hr IV.SIG TITRATE PRN; Protocol PRN Reason: PER PROTOCOL Last Admin: 04/03/18 21:10 Dose: 14 mg/hr, 140 mls/hr Heparin Sodium/Dextrose (Heparin/D5w 25,000 U/250 Ml) 25,000 unit in 250 mls @ 10 mls/hr IV.CONT TITRATE PRN; Protocol PRN Reason: Per Protocol Last Titration: 04/03/18 03:42 Dose: 1,200 units/hr, 12 mls/hr Sodium Chloride (Ns Inj) 1,000 mls @ 84 mls/hr IV.CONT .[id number] [facility] Last Admin: 04/03/18 10:06 Dose: 84 mls/hr Insulin Aspart (Novolog Insulin Correctional Sugar Inj) 0 unit SQ ACHS KARY; Protocol Last Admin: 04/03/18 20:32 Dose: Not Given Lisinopril (Prinivil) 40 mg PO DAILY [facility] Ondansetron HCl (Zofran Inj) 4 mg IV.PUSH Q6H PRN PRN Reason: NAUSEA OR VOMITING Sodium Chloride (Ns Flush) 2 ml IV.FLUSH PRN PRN PRN Reason: FLUSH AFTER USING IV ACCESS Last Admin: 04/01/18 12:47 Dose: 2 ml Allergies/Adverse Reactions: Allergies Allergy/AdvReac Type Severity Reaction Status Date / Time No Known Allergies Allergy Verified 04/01/18 12:15 Physical Exam Vital signs: Vital Signs 04/02/18 21:21 04/02/18 21:40 04/02/18 22:00 Temperature Pulse Rate 92 H 91 H 94 H Respiratory Rate 22 21 22 Blood Pressure 156/72 H 158/72 H 157/74 H Pulse Oximetry 95 95 94 L 04/02/18 22:20 04/02/18 22:40 04/02/18 23:00 Temperature Pulse Rate 95 H 96 H 97 H Respiratory Rate 22 22 22 Blood Pressure 165/77 H 168/77 H 168/77 H Pulse Oximetry 94 L 94 L 95 04/02/18 23:20 04/02/18 23:40 04/03/18 00:00 Temperature 99.3 F Pulse Rate 96 H 97 H 113 H Respiratory Rate 22 23 27 H Blood Pressure 167/78 H 165/77 H Pulse Oximetry 93 L 93 L 88 L 04/03/18 00:01 04/03/18 00:21 04/03/18 00:40 Temperature Pulse Rate 115 H 104 H 102 H Respiratory Rate 27 H 29 H 29 H Blood Pressure 172/103 H 182/73 H 179/75 H Pulse Oximetry 93 L 96 93 L 04/03/18 01:00 04/03/18 01:20 04/03/18 01:40 Temperature Pulse Rate 88 89 110 H Respiratory Rate 22 23 23 Blood Pressure 143/63 H 140/67 185/88 H Pulse Oximetry 94 L 94 L 93 L 04/03/18 02:00 04/03/18 02:01 04/03/18 02:20 Temperature Pulse Rate 98 H 99 H 89 Respiratory Rate 26 H 26 H 22 Blood Pressure 166/70 H 147/67 H Pulse Oximetry 93 L 91 L 92 L 04/03/18 02:40 04/03/18 03:00 04/03/18 03:20 Temperature Pulse Rate 91 H 90 88 Respiratory Rate 24 25 H 25 H Blood Pressure 144/66 H 146/67 H 150/68 H Pulse Oximetry 92 L 93 L 93 L 04/03/18 03:40 04/03/18 04:00 04/03/18 04:20 Temperature 98.3 F Pulse Rate 104 H 100 H 91 H Respiratory Rate 28 H 26 H 26 H Blood Pressure 157/71 H 163/74 H 142/66 H Pulse Oximetry 91 L 90 L 93 L 04/03/18 04:40 04/03/18 05:00 04/03/18 05:20 Temperature Pulse Rate 90 92 H 90 Respiratory Rate 22 29 H 27 H Blood Pressure 151/70 H 160/74 H 182/76 H Pulse Oximetry 91 L 91 L 92 L 04/03/18 05:41 04/03/18 06:00 04/03/18 06:01 Temperature Pulse Rate 109 H 111 H 113 H Respiratory Rate 27 H 23 31 H Blood Pressure 164/98 H 172/101 H Pulse Oximetry 88 L 93 L 96 04/03/18 06:06 04/03/18 07:00 04/03/18 08:00 Temperature Pulse Rate 115 H 102 H 96 H Respiratory Rate 27 H 27 H 20 Blood Pressure 178/81 H 179/77 H 165/73 H Pulse Oximetry 96 97 96 04/03/18 08:39 04/03/18 09:00 04/03/18 10:00 Temperature Pulse Rate 95 H 98 H Respiratory Rate 28 H 24 Blood Pressure 165/80 H 152/75 H Pulse Oximetry 96 94 L 97 04/03/18 12:40 04/03/18 12:55 04/03/18 12:58 Temperature Pulse Rate 91 H 94 H 93 H Respiratory Rate 21 24 26 H Blood Pressure 164/76 H 177/76 H 161/77 H Pulse Oximetry 92 L 91 L 91 L 04/03/18 13:00 04/03/18 13:20 04/03/18 13:40 Temperature Pulse Rate 92 H 90 87 Respiratory Rate 25 H 26 H 24 Blood Pressure 159/80 H 145/70 H 149/70 H Pulse Oximetry 92 L 95 93 L 04/03/18 14:00 11/09/18 14:20 04/03/18 14:41 Temperature Pulse Rate 86 88 102 H Respiratory Rate 22 25 H 24 Blood Pressure 147/66 H 146/70 H 154/91 H Pulse Oximetry 97 96 94 L 04/03/18 15:00 04/03/18 15:20 04/03/18 15:40 Temperature Pulse Rate 95 H 90 97 H Respiratory Rate 28 H 30 H 28 H Blood Pressure 156/71 H 159/71 H 175/113 H Pulse Oximetry 97 93 L 95 04/03/18 16:00 04/03/18 16:20 04/03/18 16:41 Temperature 98.2 F Pulse Rate 101 H 101 H 101 H Respiratory Rate 31 H 27 H 32 H Blood Pressure 162/74 H 144/91 H 195/77 H Pulse Oximetry 92 L 94 L 93 L 04/03/18 17:00 04/03/18 17:01 04/03/18 17:20 Temperature Pulse Rate 106 H 105 H 103 H Respiratory Rate 24 31 H 28 H Blood Pressure 170/74 H 163/73 H 165/75 H Pulse Oximetry 94 L 94 L 93 L 04/03/18 17:40 04/03/18 18:00 04/03/18 18:20 Temperature Pulse Rate 103 H 100 H 106 H Respiratory Rate 26 H 31 H 32 H Blood Pressure 170/74 H 160/74 H 163/99 H Pulse Oximetry 92 L 92 L 90 L 04/03/18 18:41 04/03/18 18:42 04/03/18 19:00 Temperature Pulse Rate 108 H 107 H 102 H Respiratory Rate 27 H 29 H 25 H Blood Pressure 183/88 H 187/79 H Pulse Oximetry 91 L 92 L 92 L 04/03/18 19:01 04/03/18 19:15 04/03/18 19:45 Temperature Pulse Rate 101 H 104 H 105 H Respiratory Rate 23 26 H 27 H Blood Pressure 167/76 H 164/79 H 171/82 H Pulse Oximetry 92 L 93 L 93 L 04/03/18 20:00 04/03/18 20:01 04/03/18 20:15 Temperature 98.9 F Pulse Rate 106 H 107 H 100 H Respiratory Rate 32 H 28 H 28 H Blood Pressure 205/96 H 161/72 H Pulse Oximetry 96 92 L 94 L 04/03/18 20:30 11/09/18 20:45 04/03/18 21:00 Temperature Pulse Rate 101 H 95 H 86 Respiratory Rate 23 28 H 23 Blood Pressure 163/74 H 158/72 H 154/72 H Pulse Oximetry 93 L 93 L 93 L Intake & Output 04/03/18 04/03/18 04/04/18 06:59 18:59 06:59 Intake Total 2400 / 2400 2040 / 2040 200 / 200 Output Total 450 / 450 500 / 500 Balance 1950 / 1950 1540 / 1540 200 / 200 Weight 78 kg Intake: IV 2400 / 2400 1800 / 1800 200 / 200 NS Inj 1,000 ML @ 70 mls/hr IV. 1000 / 1000 1000 / 1000 CONT .[id number] [facility] Rx#:[id number] Cardene 20 mg/NS 200 ml Premix 1400 / 1400 800 / 800 200 / 200 20 mg In 200 ml @ 5 MG/HR 50 mls/hr IV.SIG TITRATE PRN Rx#: [id number] Oral 0 / 0 240 / 240 Output: Urine 450 / 450 500 / 500 Other: # Incontinent Voids 1 5 Date of Last Bowel Movement 04/01/18 04/01/18 04/01/18 - Routine Neurological Exam alert, speech is fluent. He is able to repeat phrases and follow complex command CN intact MOTOR 5/5 BUE Objective Radiology Results: old cva noted but does appear to have diffusion abnormality suggestive of acute cva. No hemorrhage Laboratory Results - last 24 hr 04/02/18 04/02/18 04/03/18 05:37 20:38 03:07 WBC 10.7 RBC 4.39 L Hgb 13.7 Hct 40.1 MCV 91.4 MCH 31.3 MCHC 34.2 RDW 13.8 Plt Count 155 MPV 7.3 APTT 37.0 H D POC Glucose LOR Screen Neg 04/03/18 04/03/18 04/03/18 03:07 11:14 15:18 WBC RBC Hgb Hct MCV MCH MCHC RDW Plt Count MPV APTT 36.0 H 39.8 H POC Glucose 155 H LOR Screen 04/03/18 04/03/18 04/03/18 17:20 19:36 20:14 WBC RBC Hgb Hct MCV MCH MCHC RDW Plt Count MPV APTT 41.4 H POC Glucose 137 H 135 H LOR Screen Review/Management - Review/Management Plan: IMP--episode of transient aphasia likely TIA. Probably had small completed infarct He is stable on iv heparin with no recurrent neuro sx. Will stop plavix . Repeat brain MRI tomorrow
[2018-04-04] MEDS: niCARdipine 20mg/NS Premix 20 MG/200 ML PIGGYBACK IV.SIG PRN ×4 (01:05→06:37)
[2018-04-04 01:26] LABS: Baso # (Auto) 0.2 th/mm3 (0.0-0.2); Baso % (Auto) 1.2 % (0.0-2.0); Eos % (Auto) 0.2 % (0.0-4.0); Hematocrit 36.9 % (39.0-51.0); Hemoglobin 12.6 gm/dL (13.0-17.0); Lymph # (Auto) 1.1 th/mm3 (1.0-4.8); Lymph % (Auto) 8.9 % (9.0-44.0); Mean Corpuscular Hemoglobin 31.1 pg (27.0-34.0); Mean Corpuscular Volume 91.5 fL (80.0-100.0); Mean Platelet Volume 7.6 fL (7.0-11.0); Mono % (Auto) 8.1 % (0.0-8.0); Neut # (Auto) 10.5 th/mm3 (1.8-7.7); Neut % (Auto) 81.6 % (16.0-70.0); Platelet Count 161 th/mm3 (150-450); Red Blood Count 4.04 mil/mm3 (4.50-5.90); Red Cell Distribution Width 13.4 % (11.6-17.2); White Blood Count 12.8 th/mm3 (4.0-11.0)
[2018-04-04 01:50] LABS: Calcium 7.3 mg/dL (8.5-10.1); Carbon Dioxide 22.6 meq/L (21.0-32.0); Total Protein 6.1 g/dL (6.4-8.2)
[2018-04-04 01:53] LABS: Potassium 2.9 meq/L (3.5-5.1)
[2018-04-04] MEDS: Heparin Drip 25,000 UNIT/250 ML BAG IV.CONT PRN (03:49)
[2018-04-04] MEDS: Chlorhexidine Gluconate 2% 1 Pack (2 Cloths) TOPICAL SCH (03:49)
[2018-04-04] MEDS: Carvedilol 6.25 MG Tablet PO SCH ×2 (08:13→21:19)
[2018-04-04] MEDS: Lisinopril 20 MG Tablet PO SCH (08:13)
[2018-04-04] MEDS: Aspirin 325 MG Tablet PO SCH (08:13)
[2018-04-04] MEDS: Potassium Chlor 20 mEq Premix 20 MEQ/100 ML PIGGYBACK IV.SIG SCH ×2 (08:13→10:10)
[2018-04-04] MEDS: Sod Chloride 0.9% Inj 1,000 ML IV.CONT SCH (08:52)
[2018-04-04] MEDS: hydroCHLOROthiazide 25 MG Tablet PO SCH (08:52)
[2018-04-04] MEDS: Insulin NovoLOG Aspart Correctional Sugar Inj SQ SCH ×4 (08:53→21:26)
--- NOTE | 2018-04-04 10:38 | P.PNNEU ---
Subjective Active Medications: Active Medications Al Hydroxide/Mg Hydroxide (Milk Of Veronika Wood) 30 ml PO Q12H PRN PRN Reason: Mild Constipation Aspirin (Aspirin) 325 mg PO DAILY [facility] Last Admin: 04/04/18 08:13 Dose: 325 mg Carvedilol (Coreg) 12.5 mg PO BID [facility] Last Admin: 04/04/18 08:13 Dose: 12.5 mg Chlorhexidine Gluconate (Chlorhexidine 2% Cloth) 3 pack TOPICAL DAILY@0400 [facility] Stop: 04/07/18 03:59 Last Admin: 04/04/18 03:49 Dose: Not Given Chlorhexidine Gluconate (Chlorhexidine 2% Cloth) 3 pack TOPICAL DAILY@0400 PRN PRN Reason: Extra cloth needed Stop: 04/07/18 03:59 Dextrose (D50w Vial) 50 ml IV.PUSH UNSCH PRN PRN Reason: PER HYPOGLYCEMIA PROTOCOL Glucagon (Glucagon Inj) 1 mg OTHER PRN PRN PRN Reason: for Hypoglycemia Protocol Hydrochlorothiazide (Hydrodiuril) 25 mg PO DAILY [facility] Last Admin: 04/04/18 08:52 Dose: 25 mg Nicardipine/Sodium Chloride (Cardene 20 Mg/Ns 200 Ml Premix) 20 mg in 200 mls @ 50 mls/hr IV.SIG TITRATE PRN; Protocol PRN Reason: PER PROTOCOL Last Titration: 04/04/18 08:39 Dose: 5 mg/hr, 50 mls/hr Heparin Sodium/Dextrose (Heparin/D5w 25,000 U/250 Ml) 25,000 unit in 250 mls @ 10 mls/hr IV.CONT TITRATE PRN; Protocol PRN Reason: Per Protocol Last Admin: 04/04/18 03:49 Dose: 1,200 units/hr, 12 mls/hr Sodium Chloride (Ns Inj) 1,000 mls @ 84 mls/hr IV.CONT .[id number] [facility] Last Admin: 04/04/18 08:52 Dose: Not Given Potassium Chloride (Kcl 20 Meq Premix Inj) 20 meq in 100 mls @ 50 mls/hr IV.SIG Q2H [facility] Stop: 04/04/18 11:44 Last Admin: 04/04/18 10:10 Dose: 50 mls/hr Insulin Aspart (Novolog Insulin Correctional Sugar Inj) 0 unit SQ ACHS [facility]; Protocol Last Admin: 04/04/18 08:53 Dose: 1 unit Lisinopril (Prinivil) 40 mg PO DAILY [facility] Last Admin: 04/04/18 08:13 Dose: 40 mg Ondansetron HCl (Zofran Inj) 4 mg IV.PUSH Q6H PRN PRN Reason: NAUSEA OR VOMITING Sodium Chloride (Ns Flush) 2 ml IV.FLUSH PRN PRN PRN Reason: FLUSH AFTER USING IV ACCESS Last Admin: 04/01/18 12:47 Dose: 2 ml Allergies/Adverse Reactions: Allergies Allergy/AdvReac Type Severity Reaction Status Date / Time No Known Allergies Allergy Verified 04/01/18 12:15 Physical Exam Vital signs: Vital Signs 04/03/18 12:40 04/03/18 12:55 04/03/18 12:58 Temperature Pulse Rate 91 H 94 H 93 H Respiratory Rate 21 24 26 H Blood Pressure 164/76 H 177/76 H 161/77 H Pulse Oximetry 92 L 91 L 91 L 04/03/18 13:00 04/03/18 13:20 04/03/18 13:40 Temperature Pulse Rate 92 H 90 87 Respiratory Rate 25 H 26 H 24 Blood Pressure 159/80 H 145/70 H 149/70 H Pulse Oximetry 92 L 95 93 L 04/03/18 14:00 04/03/18 14:20 04/03/18 14:41 Temperature Pulse Rate 86 88 102 H Respiratory Rate 22 25 H 24 Blood Pressure 147/66 H 146/70 H 154/91 H Pulse Oximetry 97 96 94 L 04/03/18 15:00 04/03/18 15:20 04/03/18 15:40 Temperature Pulse Rate 95 H 90 97 H Respiratory Rate 28 H 30 H 28 H Blood Pressure 156/71 H 159/71 H 175/113 H Pulse Oximetry 97 93 L 95 04/03/18 16:00 04/03/18 16:20 04/03/18 16:41 Temperature 98.2 F Pulse Rate 101 H 101 H 101 H Respiratory Rate 31 H 27 H 32 H Blood Pressure 162/74 H 144/91 H 195/77 H Pulse Oximetry 92 L 94 L 93 L 04/03/18 17:00 04/03/18 17:01 04/03/18 17:20 Temperature Pulse Rate 106 H 105 H 103 H Respiratory Rate 24 31 H 28 H Blood Pressure 170/74 H 163/73 H 165/75 H Pulse Oximetry 94 L 94 L 93 L 04/03/18 17:40 04/03/18 18:00 04/03/18 18:20 Temperature Pulse Rate 103 H 100 H 106 H Respiratory Rate 26 H 31 H 32 H Blood Pressure 170/74 H 160/74 H 163/99 H Pulse Oximetry 92 L 92 L 90 L 04/03/18 18:41 04/03/18 18:42 04/03/18 19:00 Temperature Pulse Rate 108 H 107 H 102 H Respiratory Rate 27 H 29 H 25 H Blood Pressure 183/88 H 187/79 H Pulse Oximetry 91 L 92 L 92 L 04/03/18 19:01 04/03/18 19:15 04/03/18 19:45 Temperature Pulse Rate 101 H 104 H 105 H Respiratory Rate 23 26 H 27 H Blood Pressure 167/76 H 164/79 H 171/82 H Pulse Oximetry 92 L 93 L 93 L 04/03/18 20:00 04/03/18 20:01 04/03/18 20:15 Temperature 98.9 F Pulse Rate 106 H 107 H 100 H Respiratory Rate 32 H 28 H 28 H Blood Pressure 205/96 H 161/72 H Pulse Oximetry 96 92 L 94 L 04/03/18 20:30 04/03/18 20:45 04/03/18 21:00 Temperature Pulse Rate 101 H 95 H 86 Respiratory Rate 23 28 H 23 Blood Pressure 163/74 H 158/72 H 154/72 H Pulse Oximetry 93 L 93 L 93 L 04/03/18 21:15 04/03/18 21:30 04/03/18 21:45 Temperature Pulse Rate 82 83 86 Respiratory Rate 29 H 27 H 27 H Blood Pressure 140/61 139/65 144/70 H Pulse Oximetry 92 L 94 L 96 04/03/18 22:00 04/03/18 22:20 04/03/18 22:30 Temperature Pulse Rate 91 H 97 H 97 H Respiratory Rate 26 H 33 H 26 H Blood Pressure 150/72 H 170/77 H 158/74 H Pulse Oximetry 95 96 97 04/03/18 23:00 04/03/18 23:30 04/04/18 00:00 Temperature 98.5 F Pulse Rate 100 H 109 H 101 H Respiratory Rate 52 H 29 H 28 H Blood Pressure 173/77 H 178/88 H 167/77 H Pulse Oximetry 97 99 96 04/04/18 00:30 04/04/18 00:45 04/04/18 01:00 Temperature Pulse Rate 106 H 107 H 108 H Respiratory Rate 26 H 30 H 30 H Blood Pressure 160/70 H 151/70 H 166/70 H Pulse Oximetry 93 L 93 L 91 L 04/04/18 01:15 04/04/18 01:31 04/04/18 01:45 Temperature Pulse Rate 106 H 103 H 104 H Respiratory Rate 33 H 25 H 33 H Blood Pressure 148/65 H 161/71 H 167/73 H Pulse Oximetry 91 L 91 L 90 L 04/04/18 02:00 04/04/18 02:01 04/04/18 02:04 Temperature Pulse Rate 105 H 106 H 105 H Respiratory Rate 35 H 31 H 33 H Blood Pressure 161/109 H 162/72 H Pulse Oximetry 89 L 91 L 91 L 04/04/18 02:15 04/04/18 02:30 04/04/18 02:46 Temperature Pulse Rate 104 H 101 H 101 H Respiratory Rate 35 H 27 H 28 H Blood Pressure 172/79 H 198/74 H 162/77 H Pulse Oximetry 89 L 91 L 90 L 04/04/18 03:00 04/04/18 03:16 04/04/18 03:30 Temperature Pulse Rate 101 H 104 H 102 H Respiratory Rate 37 H 31 H 34 H Blood Pressure 156/74 H 166/76 H 164/77 H Pulse Oximetry 91 L 89 L 90 L 04/04/18 03:45 04/04/18 04:00 04/04/18 08:00 Temperature 98.8 F Pulse Rate 100 H 97 H Respiratory Rate 30 H 28 H 24 Blood Pressure 153/72 H 143/70 H Pulse Oximetry 92 L 91 L 62 L Intake & Output 04/03/18 04/04/18 04/04/18 18:59 06:59 18:59 Intake Total 2290 / 2290 1720 / 1720 100 / 100 Output Total 500 / 500 Balance 1790 / 1790 1720 / 1720 100 / 100 Weight 74.5 kg Intake: IV 0 / 2049 1000 / 1000 100 / 100 Heparin/D5W 25,000 U/250 mL 25, 250 / 250 000 unit In 250 ml @ 1,000 UNITS/HR 10 mls/hr IV.CONT TITRATE PRN Rx#:[id number] NS Inj 1,000 ML @ 70 mls/hr IV. 1000 / 1000 CONT .[id number] [facility] Rx#:[id number] KCl 20 mEq Premix Inj 20 meq In 100 / 100 100 ml @ 50 mls/hr IV.SIG Q2H [facility] Rx#:[id number] Cardene 20 mg/NS 200 ml Premix 800 / 800 1000 / 1000 20 mg In 200 ml @ 5 MG/HR 50 mls/hr IV.SIG TITRATE PRN Rx#: [id number] Oral 240 / 240 720 / 720 Output: Urine 500 / 500 Other: # Incontinent Voids 5 10 Date of Last Bowel Movement 04/01/18 04/01/18 Narrative: vff moves all nl and face sym can name home not month and confused alert awake Objective Laboratory Results - last 24 hr 04/02/18 04/03/18 04/03/18 05:37 11:14 15:18 WBC RBC Hgb Hct MCV MCH MCHC RDW Plt Count MPV Neut % (Auto) Lymph % (Auto) [place] % (Auto) Eos % (Auto) Baso % (Auto) Neut # (Auto) Lymph # (Auto) [place] # (Auto) Eos # (Auto) Baso # (Auto) WBC Differential Differential Comment APTT 39.8 H Sodium Potassium Chloride Carbon Dioxide Anion Gap BUN Creatinine Estimated GFR POC Glucose 155 H Random Glucose Calcium Prot Corrected Calcium Total Bilirubin AST ALT Alkaline Phosphatase Total Protein Albumin LOR Screen Neg 04/03/18 04/03/18 04/03/18 17:20 19:36 20:14 WBC RBC Hgb Hct MCV MCH MCHC RDW Plt Count MPV Neut % (Auto) Lymph % (Auto) [place] % (Auto) Eos % (Auto) Baso % (Auto) Neut # (Auto) Lymph # (Auto) [place] # (Auto) Eos # (Auto) Baso # (Auto) WBC Differential Differential Comment APTT 41.4 H Sodium Potassium Chloride Carbon Dioxide Anion Gap BUN Creatinine Estimated GFR POC Glucose 137 H 135 H Random Glucose Calcium Prot Corrected Calcium Total Bilirubin AST ALT Alkaline Phosphatase Total Protein Albumin LOR Screen 04/04/18 04/04/18 04/04/18 01:01 01:01 01:01 WBC 12.8 H RBC 4.04 L Hgb 12.6 L Hct 36.9 L MCV 91.5 MCH 31.1 MCHC 34.0 RDW 13.4 Plt Count 161 MPV 7.6 Neut % (Auto) 81.6 H Lymph % (Auto) 8.9 L [place] % (Auto) 8.1 H Eos % (Auto) 0.2 Baso % (Auto) 1.2 Neut # (Auto) 10.5 H Lymph # (Auto) 1.1 [place] # (Auto) 1.0 H Eos # (Auto) 0.0 Baso # (Auto) 0.2 WBC Differential . Differential Comment Auto diff final APTT 45.4 H Sodium 145 Potassium 2.9 L* Chloride 113 H D Carbon Dioxide 22.6 Anion Gap 9 BUN 15 Creatinine 0.86 Estimated GFR 89 POC Glucose Random Glucose 154 H Calcium 7.3 L* Prot Corrected Calcium 7.8 L Total Bilirubin 0.5 AST 49 H ALT 22 Alkaline Phosphatase 83 Total Protein 6.1 L Albumin 3.0 L LOR Screen 04/04/18 04/04/18 05:17 08:46 WBC RBC Hgb Hct MCV MCH MCHC RDW Plt Count MPV Neut % (Auto) Lymph % (Auto) [place] % (Auto) Eos % (Auto) Baso % (Auto) Neut # (Auto) Lymph # (Auto) [place] # (Auto) Eos # (Auto) Baso # (Auto) WBC Differential Differential Comment APTT Sodium Potassium Chloride Carbon Dioxide Anion Gap BUN Creatinine Estimated GFR POC Glucose 179 H 199 H Random Glucose Calcium Prot Corrected Calcium Total Bilirubin AST ALT Alkaline Phosphatase Total Protein Albumin LOR Screen Review/Management - Review/Management Plan: IMP- left medial post temp/occipital acute cva and od r cbllr and 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
--- NOTE | 2018-04-04 11:35 | P.PNIM ---
Subjective Interval history: Thus far MRI has shown no evidence of CVA. EEG shows no evidence of seizure. Suspected etiology is related to recurrent TIAs. This morning patient has returned to prior baseline. Speech is within normal limits and he is exhibiting no evidence of further encephalopathy when seen this morning. Physical Exam Vital signs: Vital Signs 04/03/18 12:40 04/03/18 12:55 04/03/18 12:58 Temperature Pulse Rate 91 H 94 H 93 H Respiratory Rate 21 24 26 H Blood Pressure 164/76 H 177/76 H 161/77 H Pulse Oximetry 92 L 91 L 91 L 04/03/18 13:00 04/03/18 13:20 04/03/18 13:40 Temperature Pulse Rate 92 H 90 87 Respiratory Rate 25 H 26 H 24 Blood Pressure 159/80 H 145/70 H 149/70 H Pulse Oximetry 92 L 95 93 L 04/03/18 14:00 04/03/18 14:20 04/03/18 14:41 Temperature Pulse Rate 86 88 102 H Respiratory Rate 22 25 H 24 Blood Pressure 147/66 H 146/70 H 154/91 H Pulse Oximetry 97 96 94 L 04/03/18 15:00 04/03/18 15:20 04/03/18 15:40 Temperature Pulse Rate 95 H 90 97 H Respiratory Rate 28 H 30 H 28 H Blood Pressure 156/71 H 159/71 H 175/113 H Pulse Oximetry 97 93 L 95 04/03/18 16:00 04/03/18 16:20 04/03/18 16:41 Temperature 98.2 F Pulse Rate 101 H 101 H 101 H Respiratory Rate 31 H 27 H 32 H Blood Pressure 162/74 H 144/91 H 195/77 H Pulse Oximetry 92 L 94 L 93 L 04/03/18 17:00 04/03/18 17:01 04/03/18 17:20 Temperature Pulse Rate 106 H 105 H 103 H Respiratory Rate 24 31 H 28 H Blood Pressure 170/74 H 163/73 H 165/75 H Pulse Oximetry 94 L 94 L 93 L 04/03/18 17:40 04/03/18 18:00 04/03/18 18:20 Temperature Pulse Rate 103 H 100 H 106 H Respiratory Rate 26 H 31 H 32 H Blood Pressure 170/74 H 160/74 H 163/99 H Pulse Oximetry 92 L 92 L 90 L 04/03/18 18:41 04/03/18 18:42 04/03/18 19:00 Temperature Pulse Rate 108 H 107 H 102 H Respiratory Rate 27 H 29 H 25 H Blood Pressure 183/88 H 187/79 H Pulse Oximetry 91 L 92 L 92 L 04/03/18 19:01 04/03/18 19:15 04/03/18 19:45 Temperature Pulse Rate 101 H 104 H 105 H Respiratory Rate 23 26 H 27 H Blood Pressure 167/76 H 164/79 H 171/82 H Pulse Oximetry 92 L 93 L 93 L 04/03/18 20:00 04/03/18 20:01 04/03/18 20:15 Temperature 98.9 F Pulse Rate 106 H 107 H 100 H Respiratory Rate 32 H 28 H 28 H Blood Pressure 205/96 H 161/72 H Pulse Oximetry 96 92 L 94 L 04/03/18 20:30 04/03/18 20:45 04/03/18 21:00 Temperature Pulse Rate 101 H 95 H 86 Respiratory Rate 23 28 H 23 Blood Pressure 163/74 H 158/72 H 154/72 H Pulse Oximetry 93 L 93 L 93 L 04/03/18 21:15 04/03/18 21:30 04/03/18 21:45 Temperature Pulse Rate 82 83 86 Respiratory Rate 29 H 27 H 27 H Blood Pressure 140/61 139/65 144/70 H Pulse Oximetry 92 L 94 L 96 04/03/18 22:00 04/03/18 22:20 04/03/18 22:30 Temperature Pulse Rate 91 H 97 H 97 H Respiratory Rate 26 H 33 H 26 H Blood Pressure 150/72 H 170/77 H 158/74 H Pulse Oximetry 95 96 97 04/03/18 23:00 04/03/18 23:30 04/04/18 00:00 Temperature 98.5 F Pulse Rate 100 H 109 H 101 H Respiratory Rate 52 H 29 H 28 H Blood Pressure 173/77 H 178/88 H 167/77 H Pulse Oximetry 97 99 96 04/04/18 00:30 04/04/18 00:45 04/04/18 01:00 Temperature Pulse Rate 106 H 107 H 108 H Respiratory Rate 26 H 30 H 30 H Blood Pressure 160/70 H 151/70 H 166/70 H Pulse Oximetry 93 L 93 L 91 L 04/04/18 01:15 04/04/18 01:31 04/04/18 01:45 Temperature Pulse Rate 106 H 103 H 104 H Respiratory Rate 33 H 25 H 33 H Blood Pressure 148/65 H 161/71 H 167/73 H Pulse Oximetry 91 L 91 L 90 L 04/04/18 02:00 04/04/18 02:01 04/04/18 02:04 Temperature Pulse Rate 105 H 106 H 105 H Respiratory Rate 35 H 31 H 33 H Blood Pressure 161/109 H 162/72 H Pulse Oximetry 89 L 91 L 91 L 04/04/18 02:15 04/04/18 02:30 04/04/18 02:46 Temperature Pulse Rate 104 H 101 H 101 H Respiratory Rate 35 H 27 H 28 H Blood Pressure 172/79 H 198/74 H 162/77 H Pulse Oximetry 89 L 91 L 90 L 04/04/18 03:00 04/04/18 03:16 04/04/18 03:30 Temperature Pulse Rate 101 H 104 H 102 H Respiratory Rate 37 H 31 H 34 H Blood Pressure 156/74 H 166/76 H 164/77 H Pulse Oximetry 91 L 89 L 90 L 04/04/18 03:45 04/04/18 04:00 04/04/18 04:30 Temperature 98.8 F Pulse Rate 100 H 97 H 96 H Respiratory Rate 30 H 28 H 30 H Blood Pressure 153/72 H 143/70 H Pulse Oximetry 92 L 91 L 92 L 04/04/18 04:45 04/04/18 05:00 04/04/18 05:15 Temperature Pulse Rate 99 H 100 H 100 H Respiratory Rate 32 H 29 H 27 H Blood Pressure 144/72 H 168/80 H 159/69 H Pulse Oximetry 92 L 92 L 92 L 04/04/18 05:30 04/04/18 05:45 04/04/18 06:00 Temperature Pulse Rate 100 H 101 H 102 H Respiratory Rate 33 H 35 H 45 H Blood Pressure 157/77 H 159/72 H 156/70 H Pulse Oximetry 90 L 88 L 88 L 04/04/18 06:15 04/04/18 06:30 04/04/18 06:45 Temperature Pulse Rate 97 H 100 H 99 H Respiratory Rate 27 H 31 H 26 H Blood Pressure 143/69 H 158/99 H 157/84 H Pulse Oximetry 87 L 90 L 90 L 04/04/18 07:00 04/04/18 07:01 04/04/18 07:15 Temperature Pulse Rate 100 H 98 H 100 H Respiratory Rate 24 35 H 28 H Blood Pressure 147/70 H 153/72 H Pulse Oximetry 91 L 89 L 89 L 04/04/18 07:31 04/04/18 07:45 04/04/18 08:00 Temperature 98.2 F Pulse Rate 101 H 100 H 97 H Respiratory Rate 34 H 31 H 34 H Blood Pressure 163/98 H 150/70 H 148/73 H Pulse Oximetry 89 L 83 L 86 L 04/04/18 08:15 04/04/18 08:30 04/04/18 08:45 Temperature Pulse Rate 100 H 97 H 92 H Respiratory Rate 32 H 30 H 28 H Blood Pressure 149/71 H 149/73 H 150/74 H Pulse Oximetry 82 L 86 L 79 L 04/04/18 09:00 04/04/18 09:15 04/04/18 09:30 Temperature Pulse Rate 90 86 85 Respiratory Rate 32 H 32 H 29 H Blood Pressure 145/70 H 142/73 H 136/65 Pulse Oximetry 84 L 88 L 89 L 04/04/18 09:46 04/04/18 10:00 04/04/18 10:15 Temperature Pulse Rate 86 91 H 87 Respiratory Rate 31 H 30 H 29 H Blood Pressure 136/64 143/69 H 146/69 H Pulse Oximetry 90 L 76 L 84 L 04/04/18 10:30 Temperature Pulse Rate 92 H Respiratory Rate 31 H Blood Pressure 148/72 H Pulse Oximetry 86 L Intake & Output 04/03/18 04/04/18 04/04/18 18:59 06:59 18:59 Intake Total 2290 / 2290 1720 / 1720 100 / 100 Output Total 500 / 500 Balance 1790 / 1790 1720 / 1720 100 / 100 Weight 74.5 kg Intake: IV 0 / 0 1000 / 1000 100 / 100 Heparin/D5W 25,000 U/250 mL 25, 250 / 250 000 unit In 250 ml @ 1,000 UNITS/HR 10 mls/hr IV.CONT TITRATE PRN Rx#:[id number] NS Inj 1,000 ML @ 70 mls/hr IV. 1000 / 1000 CONT .[id number] [facility] Rx#:[id number] KCl 20 mEq Premix Inj 20 meq In 100 / 100 100 ml @ 50 mls/hr IV.SIG Q2H [facility] Rx#:[id number] Cardene 20 mg/NS 200 ml Premix 800 / 800 1000 / 1000 20 mg In 200 ml @ 5 MG/HR 50 mls/hr IV.SIG TITRATE PRN Rx#: [id number] Oral 240 / 240 720 / 720 Output: Urine 500 / 500 Other: # Incontinent Voids 5 10 Date of Last Bowel Movement 04/01/18 04/01/18 04/01/18 Narrative: GENERAL: NAD, A&Ox3 HEAD: Normocephalic. NECK: Supple, trachea midline. No lymphadenopathy. EYES: No scleral icterus. No injection or drainage. CARDIOVASCULAR: Regular rate and rhythm without murmurs, gallops, or rubs. RESPIRATORY: Breath sounds equal bilaterally. No accessory muscle use. GASTROINTESTINAL: Abdomen soft, non-tender, nondistended. MUSCULOSKELETAL: No cyanosis, or edema. SKIN: Warm and dry. NEURO: No focal neurological deficits. Results - Labs CBC & Chem 7: 04/04/18 01:01 04/04/18 01:01 Laboratory Results - last 24 hr 04/02/18 04/03/18 04/03/18 05:37 11:14 15:18 WBC RBC Hgb Hct MCV MCH MCHC RDW Plt Count MPV Neut % (Auto) Lymph % (Auto) [place] % (Auto) Eos % (Auto) Baso % (Auto) Neut # (Auto) Lymph # (Auto) [place] # (Auto) Eos # (Auto) Baso # (Auto) WBC Differential Differential Comment APTT 39.8 H Sodium Potassium Chloride Carbon Dioxide Anion Gap BUN Creatinine Estimated GFR POC Glucose 155 H Random Glucose Calcium Prot Corrected Calcium Total Bilirubin AST ALT Alkaline Phosphatase Total Protein Albumin LRO Screen Neg 04/03/18 04/03/18 04/03/18 17:20 19:36 20:14 WBC RBC Hgb Hct MCV MCH MCHC RDW Plt Count MPV Neut % (Auto) Lymph % (Auto) [place] % (Auto) Eos % (Auto) Baso % (Auto) Neut # (Auto) Lymph # (Auto) [place] # (Auto) Eos # (Auto) Baso # (Auto) WBC Differential Differential Comment APTT 41.4 H Sodium Potassium Chloride Carbon Dioxide Anion Gap BUN Creatinine Estimated GFR POC Glucose 137 H 135 H Random Glucose Calcium Prot Corrected Calcium Total Bilirubin AST ALT Alkaline Phosphatase Total Protein Albumin LOR Screen 04/04/18 04/04/18 04/04/18 01:01 01:01 01:01 WBC 12.8 H RBC 4.04 L Hgb 12.6 L Hct 36.9 L MCV 91.5 MCH 31.1 MCHC 34.0 RDW 13.4 Plt Count 161 MPV 7.6 Neut % (Auto) 81.6 H Lymph % (Auto) 8.9 L [place] % (Auto) 8.1 H Eos % (Auto) 0.2 Baso % (Auto) 1.2 Neut # (Auto) 10.5 H Lymph # (Auto) 1.1 [place] # (Auto) 1.0 H Eos # (Auto) 0.0 Baso # (Auto) 0.2 WBC Differential . Differential Comment Auto diff final APTT 45.4 H Sodium 145 Potassium 2.9 L* Chloride 113 H D Carbon Dioxide 22.6 Anion Gap 9 BUN 15 Creatinine 0.86 Estimated GFR 89 POC Glucose Random Glucose 154 H Calcium 7.3 L* Prot Corrected Calcium 7.8 L Total Bilirubin 0.5 AST 49 H ALT 22 Alkaline Phosphatase 83 Total Protein 6.1 L Albumin 3.0 L LOR Screen 04/04/18 04/04/18 05:17 08:46 WBC RBC Hgb Hct MCV MCH MCHC RDW Plt Count MPV Neut % (Auto) Lymph % (Auto) [place] % (Auto) Eos % (Auto) Baso % (Auto) Neut # (Auto) Lymph # (Auto) [place] # (Auto) Eos # (Auto) Baso # (Auto) WBC Differential Differential Comment APTT Sodium Potassium Chloride Carbon Dioxide Anion Gap BUN Creatinine Estimated GFR POC Glucose 179 H 199 H Random Glucose Calcium Prot Corrected Calcium Total Bilirubin AST ALT Alkaline Phosphatase Total Protein Albumin LOR Screen - Imaging Impressions Head MRI 04/02/18 14:00 CONCLUSION: Chronic small vessel ischemic and atrophic changes, old infarctions not significantly changed. Assessment and Plan - Plan 63 year old male admitted with hypertensive emergency, slurred speech, EKG changes and troponin elevation. Suspected recurrent TIAs. Allow permissive hypertension. Orientation improved. Remove condom cath in restraints. Start physical therapy. Repeat MRI of brain planned for today. Slurred Speech Expressive aphasia Acute encephalopathy Suspected recurrent TIAs Symptoms are recurring today Etiology may be related to HTN Emergency MRI Brain negative evidence of yesterday Repeat MRI brain due to recurrence of symptoms EEG. Neurology following HTN Emergency on HTN Cardene drip as needed Follow BP Continue baseline treatments, adjust if needed Wean cardene drip as tolerated EKG Changes Troponin Elevation Troponin levels have remained stable No acute concerns for myocardial infarction as an etiology No chest pain Follow on telemetry Etiology likely related to Diabetes mellitus type 2 Follow blood sugars Insulin sliding scale Diabetic diet DVT prophylaxis SCDs
--- NOTE | 2018-04-04 14:24 | HM ---
Date Performed: 04/02/2018 Time Performed: 15:38:00 HOOKUP DATE: 04/02/18 03:38:00 PM [facility] ANALYSIS START TIME: 04/02/2018 3:43:00 PM ANALYSIS END TIME: 04/03/2018 4:49:37 AM PATIENT AGE: 63 PATIENT HEIGHT PATIENT WEIGHT DRUG LIST PATIENT DIAGNOSIS: HYPERTENSIVE EMERGENCY/STROKE/ELEVATED TROPONIN TEST NARRATIVE: The patient's average heart rate was 101 BPM. Heart rates greater than 120 BPM were noted 7% of the time. No episodes of bradycardia were noted. No pauses exceeding 2.0 se conds were noted. 443 ventricular ectopics, which represented 1% of the total beat count, were no pricilla. The highest ventricular ectopic frequency occurred from 11:00 PM to 12:00 AM Fri. During this time 128 VE(s) occurred. Ventricular ectopics were observed as 441 isolated beat(s) and as 1 couplet (s). No runs were noted. Some of the ventricular beats occurred in bigeminal cycles. 119 suprav entricular ectopics, which represented < 1% of the total beat count, were noted. The highest suprave ntricular ectopic frequency occurred from 04:00 AM to 05:00 AM Fri. During this time 49 SVE(s) occur red. Multiple episodes of ST depression (defined as -1.0 mm or more) were noted in channel 1. T he maximum depression of -4.3 mm occurred at 03:07:38 AM Fri. In channel 2, a single episode of ST d epression (defined as -1.0 mm or more) occurred at 04:13:06 AM Fri with a maximum depression of -1.4 mm. No episodes of ST depression (defined as -1.0 mm or more) were noted in channel 3. PATIENT NOT A BLE TO RECORD IN DIARY/NOT GIVEN TEST INTERPRETATION: No diary is available. No significant pauses are present. The underlying rh ythm is Sinus rhythm with average heart rate 101 bpm. The range is 68-176 bpm.Occasional premature atrial and ventricular contractions are seen. Rare, nonsustained atrial runs are seen. Ventricular bigeminy with an extreme ly rare ventricular couplet is seen. Signed by : Ethan Hickey
[2018-04-04] MEDS ORDERED: Gadobutrol PF 7.5 MMOL/7.5 ML Vial (for RAD) IV.SIG ONE (14:26)
--- NOTE | 2018-04-04 15:07 | MR ---
EXAM DATE: 04/04/2018 2:38 PM EST AGE/SEX: 63 years / Male INDICATIONS: CVA. CLINICAL DATA: This is the patient's initial encounter. Patient reports that signs and symptoms have been present for 1 day and indicates a pain score of 0/10. MEDICAL/SURGICAL HISTORY: Hypertension. Diabetes mellitus type II. None. COMPARISON: [facility] [place], MR HEAD W/O CONTRAST, 04/02/2018. . TECHNIQUE: Multiplanar, multisequence examination of the brain was performed without and with 7 ml Ga davist (gadobutrol) contrast as a single exam dose. FINDINGS: 1.3 x 2.3 cm area of restricted diffusion involves the anteromedial portion of the left occipital lob e. No other restricted diffusion demonstrated. No bleed, mass, mass effect or midline shift. Moderate to severe, chronic FLAIR signal abnormality se en in the periventricular white matter of both cerebral hemispheres. There is an old infarct of the r ight side of the cerebellum again noted. No abnormal enhancement is demonstrated. CONCLUSION: 1. Small acute/subacute infarct of the left occipital lobe is not significantly changed. 2. No new infarct has developed in the interim. No bleed. 3. 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 Electronically signed by: Solis Uribe MD 04/04/2018 3:06 PM EST
[2018-04-04 21:12] LABS: ABG Base Excess 0.2 mmol/L (-2-2); ABG PCO2 35 mmHg (38-42); ABG PO2 66 mmHg (61-120)
[2018-04-05] MEDS: Heparin Drip 25,000 UNIT/250 ML BAG IV.CONT PRN ×2 (00:35→18:40)
[2018-04-05] MEDS: Chlorhexidine Gluconate 2% 1 Pack (2 Cloths) TOPICAL SCH (05:11)
[2018-04-05 07:34] LABS: Baso # (Auto) 0.1 th/mm3 (0.0-0.2); Baso % (Auto) 0.7 % (0.0-2.0); Eos % (Auto) 0.2 % (0.0-4.0); Hemoglobin 13.1 gm/dL (13.0-17.0); Lymph # (Auto) 1.1 th/mm3 (1.0-4.8); Lymph % (Auto) 8.8 % (9.0-44.0); Mean Corpuscular HGB Conc 35.3 % (32.0-36.0); Mean Corpuscular Hemoglobin 31.9 pg (27.0-34.0); Mean Corpuscular Volume 90.3 fL (80.0-100.0); Mean Platelet Volume 8.2 fL (7.0-11.0); Mono % (Auto) 7.9 % (0.0-8.0); Neut # (Auto) 10.3 th/mm3 (1.8-7.7); Neut % (Auto) 82.4 % (16.0-70.0); Platelet Count 160 th/mm3 (150-450); Red Cell Distribution Width 13.4 % (11.6-17.2); White Blood Count 12.5 th/mm3 (4.0-11.0)
[2018-04-05 07:58] LABS: Anion Gap 10 meq/L (5-15); Aspartate Aminotransferase 47 U/L (15-37); Blood Urea Nitrogen 15 mg/dL (7-18); Calcium 8.6 mg/dL (8.5-10.1); Carbon Dioxide 26.2 meq/L (21.0-32.0); Chloride 106 meq/L (98-107); Glomerular Filtration Rate 88 mL/min (>89); Glucose,Random 138 mg/dL (74-106); Magnesium 1.6 mg/dL (1.5-2.5); Sodium 142 meq/L (136-145)
[2018-04-05 08:02] LABS: Alanine Aminotransferase 30 U/L (12-78); Alkaline Phosphatase 94 U/L (45-117); Phosphorus 2.8 mg/dL (2.5-4.9)
[2018-04-05 08:03] LABS: Potassium 3.7 meq/L (3.5-5.1)
[2018-04-05] MEDS: Lisinopril 20 MG Tablet PO SCH (08:22)
[2018-04-05] MEDS: Aspirin 325 MG Tablet PO SCH (08:22)
[2018-04-05] MEDS: hydroCHLOROthiazide 25 MG Tablet PO SCH (08:22)
[2018-04-05] MEDS: Carvedilol 6.25 MG Tablet PO SCH ×2 (08:22→20:38)
[2018-04-05] MEDS: Insulin NovoLOG Aspart Correctional Sugar Inj SQ SCH ×4 (09:16→20:47)
--- NOTE | 2018-04-05 12:35 | XR ---
EXAM DATE: 04/05/2018 12:32 PM EST AGE/SEX: 63 years / Male INDICATIONS: Fever. Cough. CLINICAL DATA: This is the patient's subsequent encounter. Patient reports that signs and symptoms h ave been present for 4 - 6 days and indicates a pain score of 4/10. MEDICAL/SURGICAL HISTORY: None. None. COMPARISON: [facility], CHEST SINGLE AP, 05/05/2017. . FINDINGS: Mild cardiomegaly. Mild left basilar airspace disease and small effusions. Questionable early infiltr ate right upper lobe. No pneumothorax. CONCLUSION: Cardiomegaly with left basilar airspace disease. Differential diagnosis includes atelectasis and pneu monia. Small effusions also noted. Questionable early infiltrate right upper lobe as well. Electronically signed by: Sheldon Grider MD 04/05/2018 12:34 PM EST
[2018-04-05 15:34] LABS: Bacteria,Urine Occasional /hpf; Bilirubin,Urine Negative (Negative); Clarity,Urine Clear (Clear); Color,Urine Yellow (Yellw/Straw); Glucose,Urine (UA) 500 or Greater mg/dL (Negative); Leukocyte Esterase,Urine Negative (Negative); Mucus,Urine Few /lpf (Occasional); Nitrite,Urine Negative (Negative); Urobilinogen,Urine 4 or Greater mg/dL (Less than 2)
--- NOTE | 2018-04-05 16:14 | P.PNIM ---
Subjective Interval history: Fever overnight. Suspected pneumonia based on chest x-ray. Urinalysis shows no evidence of UTI. Coumadin has been recommended as a treatment, last MRI showed evidence of CVA. Physical Exam Vital signs: Vital Signs 04/04/18 20:00 04/04/18 20:45 04/05/18 00:00 Temperature 99.1 F 98.9 F Pulse Rate 109 H 99 H Respiratory Rate 18 18 Blood Pressure 171/80 H 180/89 H Pulse Oximetry 91 L 93 L 91 L 04/05/18 00:39 04/05/18 04:00 04/05/18 06:08 Temperature 100.6 F H 98.7 F Pulse Rate 102 H Respiratory Rate 18 18 Blood Pressure 178/82 H 187/89 H Pulse Oximetry 91 L 04/05/18 08:00 04/05/18 12:00 Temperature 99.9 F H 98.4 F Pulse Rate 98 H 88 Respiratory Rate 20 18 Blood Pressure 195/93 H 189/88 H Pulse Oximetry 93 L 96 Intake & Output 04/04/18 04/05/18 04/05/18 18:59 06:59 18:59 Intake Total 680 / 680 250 / 250 Output Total 900 / 900 350 / 350 Balance -220 / -220 -100 / -100 Weight 68.2 kg Intake: IV 200 / 200 250 / 250 Heparin/D5W 25,000 U/250 mL 25, 250 / 250 000 unit In 250 ml @ 1,000 UNITS/HR 10 mls/hr IV.CONT TITRATE PRN Rx#:[id number] KCl 20 mEq Premix Inj 20 meq In 200 / 200 100 ml @ 50 mls/hr IV.SIG Q2H [facility] Rx#:[id number] Oral 480 / 480 Output: Urine 900 / 900 350 / 350 Other: # Incontinent Voids 2 Date of Last Bowel Movement 04/01/18 04/01/18 Narrative: GENERAL: NAD, A&Ox3 HEAD: Normocephalic. NECK: Supple, trachea midline. No lymphadenopathy. EYES: No scleral icterus. No injection or drainage. CARDIOVASCULAR: Regular rate and rhythm without murmurs, gallops, or rubs. RESPIRATORY: Breath sounds equal bilaterally. No accessory muscle use. GASTROINTESTINAL: Abdomen soft, non-tender, nondistended. MUSCULOSKELETAL: No cyanosis, or edema. SKIN: Warm and dry. NEURO: No focal neurological deficits. Results - Labs CBC & Chem 7: 04/05/18 06:51 04/05/18 06:51 Laboratory Results - last 24 hr 04/04/18 04/04/18 04/04/18 16:55 17:23 21:04 WBC RBC Hgb Hct MCV MCH MCHC RDW Plt Count MPV Neut % (Auto) Lymph % (Auto) [place] % (Auto) Eos % (Auto) Baso % (Auto) Neut # (Auto) Lymph # (Auto) [place] # (Auto) Eos # (Auto) Baso # (Auto) WBC Differential Differential Comment APTT Puncture Site Right brachial Patient Temperature 98.6 O2 Saturation 91 ABG pH 7.44 H ABG pCO2 35 L ABG pO2 66 ABG HCO3 24 ABG O2 Content 15.5 ABG Base Excess 0.2 ABG Methemoglobin 1.3 Hemoglobin 12.1 Carboxyhemoglobin 1.5 O2 Delivery Device Simple mask Liter Flow 6.00 Critical Value No Sodium Potassium 3.4 L Chloride Carbon Dioxide Anion Gap BUN Creatinine Estimated GFR POC Glucose 137 H Random Glucose Calcium Phosphorus Magnesium Total Bilirubin AST ALT Alkaline Phosphatase Total Protein Albumin Urine Color Urine Clarity Urine pH Ur Specific [place] Urine Protein Urine Glucose (UA) Urine Ketones Urine Occult Blood Urine Nitrate Urine Bilirubin Urine Urobilinogen Ur Leukocyte Esterase Urine RBC Urine WBC Urine Bacteria Urine Mucus Micro UA Comment Ur Microscopic Review Urine Culture Comments 04/04/18 04/05/18 04/05/18 21:18 06:51 06:51 WBC RBC Hgb Hct MCV MCH MCHC RDW Plt Count MPV Neut % (Auto) Lymph % (Auto) [place] % (Auto) Eos % (Auto) Baso % (Auto) Neut # (Auto) Lymph # (Auto) [place] # (Auto) Eos # (Auto) Baso # (Auto) WBC Differential Differential Comment APTT 37.3 H Puncture Site Patient Temperature O2 Saturation ABG pH ABG pCO2 ABG pO2 ABG HCO3 ABG O2 Content ABG Base Excess ABG Methemoglobin Hemoglobin Carboxyhemoglobin O2 Delivery Device Liter Flow Critical Value Sodium 142 Potassium 3.7 Chloride 106 Carbon Dioxide 26.2 Anion Gap 10 BUN 15 Creatinine 0.87 Estimated GFR 88 L POC Glucose 264 H Random Glucose 138 H Calcium 8.6 D Phosphorus 2.8 Magnesium 1.6 Total Bilirubin 0.8 AST 47 H ALT 30 Alkaline Phosphatase 94 Total Protein 7.0 D Albumin 3.0 L Urine Color Urine Clarity Urine pH Ur Specific [place] Urine Protein Urine Glucose (UA) Urine Ketones Urine Occult Blood Urine Nitrate Urine Bilirubin Urine Urobilinogen Ur Leukocyte Esterase Urine RBC Urine WBC Urine Bacteria Urine Mucus Micro UA Comment Ur Microscopic Review Urine Culture Comments 04/05/18 04/05/18 04/05/18 06:51 07:19 14:44 WBC 12.5 H RBC 4.10 L Hgb 13.1 Hct 37.0 L MCV 90.3 MCH 31.9 MCHC 35.3 RDW 13.4 Plt Count 160 MPV 8.2 Neut % (Auto) 82.4 H Lymph % (Auto) 8.8 L [place] % (Auto) 7.9 Eos % (Auto) 0.2 Baso % (Auto) 0.7 Neut # (Auto) 10.3 H Lymph # (Auto) 1.1 [place] # (Auto) 1.0 H Eos # (Auto) 0.0 Baso # (Auto) 0.1 WBC Differential . Differential Comment Auto diff final APTT Puncture Site Patient Temperature O2 Saturation ABG pH ABG pCO2 ABG pO2 ABG HCO3 ABG O2 Content ABG Base Excess ABG Methemoglobin Hemoglobin Carboxyhemoglobin O2 Delivery Device Liter Flow Critical Value Sodium Potassium Chloride Carbon Dioxide Anion Gap BUN Creatinine Estimated GFR POC Glucose 168 H Random Glucose Calcium Phosphorus Magnesium Total Bilirubin AST ALT Alkaline Phosphatase Total Protein Albumin Urine Color Yellow Urine Clarity Clear Urine pH 6.0 Ur Specific [place] 1.010 Urine Protein 100 H Urine Glucose (UA) 500 or greater Urine Ketones 20 Urine Occult Blood Small H Urine Nitrate Negative Urine Bilirubin Negative Urine Urobilinogen 4 or greater Ur Leukocyte Esterase Negative Urine RBC 2 Urine WBC 1 Urine Bacteria Occasional H Urine Mucus Few H Micro UA Comment Culture not ind Ur Microscopic Review Not Reportable Urine Culture Comments Culture not ind 04/05/18 15:27 WBC RBC Hgb Hct MCV MCH MCHC RDW Plt Count MPV Neut % (Auto) Lymph % (Auto) [place] % (Auto) Eos % (Auto) Baso % (Auto) Neut # (Auto) Lymph # (Auto) [place] # (Auto) Eos # (Auto) Baso # (Auto) WBC Differential Differential Comment APTT 36.9 H Puncture Site Patient Temperature O2 Saturation ABG pH ABG pCO2 ABG pO2 ABG HCO3 ABG O2 Content ABG Base Excess ABG Methemoglobin Hemoglobin Carboxyhemoglobin O2 Delivery Device Liter Flow Critical Value Sodium Potassium Chloride Carbon Dioxide Anion Gap BUN Creatinine Estimated GFR POC Glucose Random Glucose Calcium Phosphorus Magnesium Total Bilirubin AST ALT Alkaline Phosphatase Total Protein Albumin Urine Color Urine Clarity Urine pH Ur Specific [place] Urine Protein Urine Glucose (UA) Urine Ketones Urine Occult Blood Urine Nitrate Urine Bilirubin Urine Urobilinogen Ur Leukocyte Esterase Urine RBC Urine WBC Urine Bacteria Urine Mucus Micro UA Comment Ur Microscopic Review Urine Culture Comments - Imaging Impressions Chest X-Ray 04/05/18 00:00 CONCLUSION: Cardiomegaly with left basilar airspace disease. Differential diagnosis includes atelectasis and pneumonia. Small effusions also noted. Questionable early infiltrate right upper lobe as well. Assessment and Plan - Plan 63 year old male admitted with hypertensive emergency, slurred speech, EKG changes and troponin elevation. Coumadin initiated. Follow INR. Continue physical therapy. Continue monitoring cognitive status. Fever present overnight and may be related to pneumonia based on chest x-ray. Levaquin started. Fever Suspected pneumonia Start Levaquin Start probiotics Follow clinically Slurred Speech Expressive aphasia Acute encephalopathy Suspected recurrent TIAs Symptoms are recurring today Etiology may be related to HTN Emergency MRI Brain negative evidence of yesterday Repeat MRI brain due to recurrence of symptoms EEG. Neurology following Coumadin as a preventative treatment Follow INR HTN Emergency on HTN Cardene drip as needed Follow BP Continue baseline treatments, adjust if needed Wean cardene drip as tolerated EKG Changes Troponin Elevation Troponin levels have remained stable No acute concerns for myocardial infarction as an etiology No chest pain Follow on telemetry Etiology likely related to Diabetes mellitus type 2 Follow blood sugars Insulin sliding scale Diabetic diet DVT prophylaxis SCDs
[2018-04-05] MEDS: Lactobacillus Acidophilus/L. Spores Tablet PO SCH (17:55)
[2018-04-06 03:53] LABS: Baso # (Auto) 0.1 th/mm3 (0.0-0.2); Baso % (Auto) 0.6 % (0.0-2.0); Eos # (Auto) 0.1 th/mm3 (0.0-0.4); Eos % (Auto) 1.4 % (0.0-4.0); Hematocrit 39.3 % (39.0-51.0); Hemoglobin 13.4 gm/dL (13.0-17.0); Lymph % (Auto) 11.3 % (9.0-44.0); Mean Corpuscular Hemoglobin 31.3 pg (27.0-34.0); Mean Corpuscular Volume 92.1 fL (80.0-100.0); Mean Platelet Volume 8.3 fL (7.0-11.0); Mono # (Auto) 0.9 th/mm3 (0.0-0.9); Mono % (Auto) 9.6 % (0.0-8.0); Neut # (Auto) 7.1 th/mm3 (1.8-7.7); Neut % (Auto) 77.1 % (16.0-70.0); Platelet Count 170 th/mm3 (150-450); Red Blood Count 4.27 mil/mm3 (4.50-5.90); Red Cell Distribution Width 13.1 % (11.6-17.2); White Blood Count 9.2 th/mm3 (4.0-11.0)
[2018-04-06 04:03] LABS: Activated Partial Thrombo Time 43.3 sec (23.4-31.7); INR 1.1 Ratio; Prothrombin Time 10.9 sec (9.8-11.6)
[2018-04-06] MEDS: Chlorhexidine Gluconate 2% 1 Pack (2 Cloths) TOPICAL SCH (04:05)
[2018-04-06 04:24] LABS: Albumin 2.7 g/dL (3.4-5.0); Anion Gap 11 meq/L (5-15); Aspartate Aminotransferase 27 U/L (15-37); Blood Urea Nitrogen 19 mg/dL (7-18); Calcium 8.6 mg/dL (8.5-10.1); Carbon Dioxide 29.8 meq/L (21.0-32.0); Chloride 99 meq/L (98-107); Glomerular Filtration Rate 71 mL/min (>89); Glucose,Random 160 mg/dL (74-106); Potassium 3.4 meq/L (3.5-5.1); Sodium 140 meq/L (136-145)
[2018-04-06 04:25] LABS: Alanine Aminotransferase 27 U/L (12-78)
[2018-04-06 04:28] LABS: Alkaline Phosphatase 89 U/L (45-117); Total Protein 6.8 g/dL (6.4-8.2)
--- NOTE | 2018-04-06 07:43 | P.PNNEU ---
Subjective Subjective Comments: sr Active Medications: Active Medications Al Hydroxide/Mg Hydroxide (Milk Of Veronika Wood) 30 ml PO Q12H PRN PRN Reason: Mild Constipation Last Admin: 04/05/18 08:22 Dose: 30 ml Aspirin (Aspirin) 325 mg PO DAILY [facility] Last Admin: 04/05/18 08:22 Dose: 325 mg Carvedilol (Coreg) 12.5 mg PO BID [facility] Last Admin: 04/05/18 20:38 Dose: 12.5 mg Chlorhexidine Gluconate (Chlorhexidine 2% Cloth) 3 pack TOPICAL DAILY@0400 [facility] Stop: 04/07/18 03:59 Last Admin: 04/06/18 04:05 Dose: Not Given Chlorhexidine Gluconate (Chlorhexidine 2% Cloth) 3 pack TOPICAL DAILY@0400 PRN PRN Reason: Extra cloth needed Stop: 04/07/18 03:59 Dextrose (D50w Vial) 50 ml IV.PUSH UNSCH PRN PRN Reason: PER HYPOGLYCEMIA PROTOCOL Glucagon (Glucagon Inj) 1 mg OTHER PRN PRN PRN Reason: for Hypoglycemia Protocol Hydrochlorothiazide (Hydrodiuril) 25 mg PO DAILY [facility] Last Admin: 04/05/18 08:22 Dose: 25 mg Nicardipine/Sodium Chloride (Cardene 20 Mg/Ns 200 Ml Premix) 20 mg in 200 mls @ 50 mls/hr IV.SIG TITRATE PRN; Protocol PRN Reason: PER PROTOCOL Last Titration: 04/04/18 08:39 Dose: 5 mg/hr, 50 mls/hr Heparin Sodium/Dextrose (Heparin/D5w 25,000 U/250 Ml) 25,000 unit in 250 mls @ 10 mls/hr IV.CONT TITRATE PRN; Protocol PRN Reason: Per Protocol Last Admin: 04/05/18 18:40 Dose: 1,300 units/hr, 13 mls/hr Levofloxacin/Dextrose (Levaquin 750 Mg Premix Inj) 150 mls @ 100 mls/hr IV.SIG Q24H [facility] Last Infusion: 04/05/18 18:28 Dose: Infused Insulin Aspart (Novolog Insulin [employer] Sugar Inj) 0 unit SQ ACHS [facility]; Protocol Last Admin: 04/05/18 20:47 Dose: 1 unit Lactobacillus Acidophilus (Lactinex) 1 tab PO TID [facility] Last Admin: 04/05/18 17:55 Dose: 1 tab Lisinopril (Prinivil) 40 mg PO DAILY [facility] Last Admin: 04/05/18 08:22 Dose: 40 mg Ondansetron HCl (Zofran Inj) 4 mg IV.PUSH Q6H PRN PRN Reason: NAUSEA OR VOMITING Sodium Chloride (Ns Flush) 2 ml IV.FLUSH PRN PRN PRN Reason: FLUSH AFTER USING IV ACCESS Last Admin: 04/01/18 12:47 Dose: 2 ml Warfarin Sodium (Coumadin) 5 mg PO DAILY@1600 [facility] Allergies/Adverse Reactions: Allergies Allergy/AdvReac Type Severity Reaction Status Date / Time No Known Allergies Allergy Verified 04/01/18 12:15 Physical Exam Vital signs: Vital Signs 04/05/18 08:00 04/05/18 12:00 04/05/18 16:00 Temperature 99.9 F H 98.4 F 97.9 F Pulse Rate 98 H 88 77 Respiratory Rate 20 18 16 Blood Pressure 195/93 H 189/88 H 169/86 H Pulse Oximetry 93 L 96 100 04/05/18 20:00 04/06/18 00:00 04/06/18 00:28 Temperature 97.8 F 97.7 F Pulse Rate 85 79 89 Respiratory Rate 18 18 Blood Pressure 176/91 H 198/97 H 198/98 H Pulse Oximetry 97 100 04/06/18 02:45 04/06/18 04:00 Temperature 97.9 F Pulse Rate 74 84 Respiratory Rate 18 Blood Pressure 121/67 165/81 H Pulse Oximetry 95 Intake & Output 04/05/18 04/06/18 04/06/18 18:59 06:59 18:59 Intake Total 1360 / 1360 Output Total 1000 / 1000 575 / 575 Balance 360 / 360 -575 / -575 Weight 68.3 kg Intake: IV 400 / 400 Heparin/D5W 25,000 U/250 mL 25, 250 / 250 000 unit In 250 ml @ 1,000 UNITS/HR 10 mls/hr IV.CONT TITRATE PRN Rx#:[id number] Levaquin 750 mg Premix Inj 150 150 / 150 ML @ 100 mls/hr IV.SIG Q24H [facility] Rx#:[id number] Oral 960 / 960 Output: Urine 1000 / 1000 575 / 575 Other: # Incontinent Voids 1 Date of Last Bowel Movement 04/01/18 04/01/18 # Bowel Movements 0 Narrative: 2017 vff face sym nl speech not agitated 09/27 Objective Laboratory Results - last 24 hr 04/05/18 04/05/18 04/05/18 06:51 06:51 14:44 WBC RBC Hgb Hct MCV MCH MCHC RDW Plt Count MPV Neut % (Auto) Lymph % (Auto) [place] % (Auto) Eos % (Auto) Baso % (Auto) Neut # (Auto) Lymph # (Auto) [place] # (Auto) Eos # (Auto) Baso # (Auto) WBC Differential Differential Comment PT INR APTT 37.3 H Sodium 142 Potassium 3.7 Chloride 106 Carbon Dioxide 26.2 Anion Gap 10 BUN 15 Creatinine 0.87 Estimated GFR 88 L POC Glucose Random Glucose 138 H Calcium 8.6 D Phosphorus 2.8 Magnesium 1.6 Total Bilirubin 0.8 AST 47 H ALT 30 Alkaline Phosphatase 94 Total Protein 7.0 D Albumin 3.0 L Urine Color Yellow Urine Clarity Clear Urine pH 6.0 Ur Specific [place] 1.010 Urine Protein 100 H Urine Glucose (UA) 500 or greater Urine Ketones 20 Urine Occult Blood Small H Urine Nitrate Negative Urine Bilirubin Negative Urine Urobilinogen 4 or greater Ur Leukocyte Esterase Negative Urine RBC 2 Urine WBC 1 Urine Bacteria Occasional H Urine Mucus Few H Micro UA Comment Culture not ind Ur Microscopic Review Not Reportable Urine Culture Comments Culture not ind 04/05/18 04/05/18 04/05/18 15:27 20:37 21:29 WBC RBC Hgb Hct MCV MCH MCHC RDW Plt Count MPV Neut % (Auto) Lymph % (Auto) [place] % (Auto) Eos % (Auto) Baso % (Auto) Neut # (Auto) Lymph # (Auto) [place] # (Auto) Eos # (Auto) Baso # (Auto) WBC Differential Differential Comment PT INR APTT 36.9 H 39.6 H Sodium Potassium Chloride Carbon Dioxide Anion Gap BUN Creatinine Estimated GFR POC Glucose 196 H Random Glucose Calcium Phosphorus Magnesium Total Bilirubin AST ALT Alkaline Phosphatase Total Protein Albumin Urine Color Urine Clarity Urine pH Ur Specific [place] Urine Protein Urine Glucose (UA) Urine Ketones Urine Occult Blood Urine Nitrate Urine Bilirubin Urine Urobilinogen Ur Leukocyte Esterase Urine RBC Urine WBC Urine Bacteria Urine Mucus Micro UA Comment Ur Microscopic Review Urine Culture Comments 04/06/18 04/06/18 04/06/18 03:38 03:38 03:38 WBC 9.2 RBC 4.27 L Hgb 13.4 Hct 39.3 MCV 92.1 MCH 31.3 MCHC 34.0 RDW 13.1 Plt Count 170 MPV 8.3 Neut % (Auto) 77.1 H Lymph % (Auto) 11.3 [place] % (Auto) 9.6 H Eos % (Auto) 1.4 Baso % (Auto) 0.6 Neut # (Auto) 7.1 Lymph # (Auto) 1.0 [place] # (Auto) 0.9 Eos # (Auto) 0.1 Baso # (Auto) 0.1 WBC Differential . Differential Comment Auto diff final PT 10.9 INR 1.1 APTT 43.3 H Sodium 140 Potassium 3.4 L Chloride 99 Carbon Dioxide 29.8 Anion Gap 11 BUN 19 H Creatinine 1.05 Estimated GFR 71 L POC Glucose Random Glucose 160 H Calcium 8.6 Phosphorus Magnesium Total Bilirubin 0.6 AST 27 ALT 27 Alkaline Phosphatase 89 Total Protein 6.8 Albumin 2.7 L Urine Color Urine Clarity Urine pH Ur Specific [place] Urine Protein Urine Glucose (UA) Urine Ketones Urine Occult Blood Urine Nitrate Urine Bilirubin Urine Urobilinogen Ur Leukocyte Esterase Urine RBC Urine WBC Urine Bacteria Urine Mucus Micro UA Comment Ur Microscopic Review Urine Culture Comments Review/Management - Review/Management Plan: IMP- left medial post temp/occipital acute cva and od r cbllr and 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 04/06/18 no change on coumadin and hep holter neg x some rare atrial runs? would like to get loop bobbi ok to run bp 140/70 left carotid not very narrow as above oob
[2018-04-06] MEDS: Insulin NovoLOG Aspart Correctional Sugar Inj SQ SCH ×4 (07:48→23:33)
[2018-04-06] MEDS: Aspirin 325 MG Tablet PO SCH (08:41)
[2018-04-06] MEDS: Carvedilol 6.25 MG Tablet PO SCH (08:46)
[2018-04-06] MEDS: hydroCHLOROthiazide 25 MG Tablet PO SCH (08:46)
[2018-04-06] MEDS: Lisinopril 20 MG Tablet PO SCH (08:46)
[2018-04-06] MEDS: Lactobacillus Acidophilus/L. Spores Tablet PO SCH ×3 (08:47→17:51)
[2018-04-06] MEDS ORDERED: Metoprolol Tartrate 25 MG Tablet PO ONE (10:08)
[2018-04-06] MEDS ORDERED: Chlorhexidine Gluconate 2% 1 Pack (2 Cloths) TOPICAL ONE (10:08)
[2018-04-06] MEDS ORDERED: Sodium Chlor 0.9% Inj 500 ML IV.SIG ONE (11:00)
--- NOTE | 2018-04-06 11:11 | P.PNIM ---
Subjective Interval history: Reports that he is not in pain. He has not ate anything this morning. Doing okay overall. Physical Exam Vital signs: Last Vital Signs Temp 98.2 F 04/06/18 08:00 Pulse 79 04/06/18 08:00 Resp 20 04/06/18 08:00 BP 165/81 H 04/06/18 04:00 Pulse Ox 98 04/06/18 08:48 Intake & Output 04/04/18 04/05/18 04/06/18 04/07/18 06:59 06:59 06:59 06:59 Intake Total 4010 / 4010 930 / 930 1360 / 1360 Output Total 500 / 500 1250 / 1250 1575 / 1575 Balance 3510 / 3510 -320 / -320 -215 / -215 Weight 74.5 kg 68.2 kg 68.3 kg Narrative: GENERAL: This is a well-nourished, well-developed patient, in no apparent distress. CARDIOVASCULAR: Regular rate and rhythm RESPIRATORY: Clear to auscultation. Breath sounds equal bilaterally. No wheezes , rales, or rhonchi. GASTROINTESTINAL: Abdomen soft, non-tender, nondistended. Normal active bowel sounds MUSCULOSKELETAL: Extremities without clubbing, cyanosis, or edema. NEURO: Alert and oriented person and place, in restraints. Unable to do a complete exam due to patient in restraints. Was able to move bilateral lower leg Results Labs CBC & Chem 7: 04/06/18 03:38 04/06/18 03:38 Imaging Imaging: Impressions Chest X-Ray 04/05/18 00:00 CONCLUSION: Cardiomegaly with left basilar airspace disease. Differential diagnosis includes atelectasis and pneumonia. Small effusions also noted. Questionable early infiltrate right upper lobe as well. Assessment and Plan (1) Transient cerebral ischemia: Code(s): G45.9 - Transient cerebral ischemic attack, unspecified Status: Acute (2) Hypertensive emergency: Code(s): I16.1 - Hypertensive emergency Status: Acute (3) Elevated troponin: Code(s): R74.8 - Abnormal levels of other serum enzymes Status: Acute Plan 63 year old male admitted with hypertensive emergency, slurred speech, EKG changes and troponin elevation. Coumadin initiated. Follow INR. Continue physical therapy. Continue monitoring cognitive status. Fever present overnight and may be related to pneumonia based on chest x-ray. Levaquin started. 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 Mckinley today. Continue with OT PT and speech therapy MRI of the brain on 1110 shows small acute/subacute infarct the left occipital lobe Feverresolved Suspected community-acquired pneumonia with findings on chest x-ray with left basilar airspace disease Continue Levaquin Start probiotics Follow clinically Hypertensive emergencyresolved Currently on Coreg, HCTZ, lisinopril Follow BP Continue baseline treatments, adjust if needed Hypokalemiareplete check magnesium level Diabetes mellitus type 2, labile uncontrolled with hemoglobin A1c pending Follow blood sugars Insulin sliding scale Diabetic diet DVT prophylaxis SCDs Progress Note: Quality VTE Deep Vein Thrombosis/Pulmonary Embolism Present on Admission: No _ (1) Transient cerebral ischemia Qualifiers: Transient cerebral ischemia type:
[2018-04-06] MEDS: Heparin Drip 25,000 UNIT/250 ML BAG IV.CONT PRN (12:08)
--- NOTE | 2018-04-06 12:35 | P.PNCA ---
Subjective Interval history: Patient denies any CP, pressure, palpitations, dizziness, edema or SOB. Patient states he is feeling much better today. Medications and Allergies Allergies Allergy/AdvReac Type Severity Reaction Status Date / Time No Known Allergies Allergy Verified 04/01/18 12:15 Home Medications Medication Instructions Recorded Confirmed Type aspirin 325 mg PO DAILY 04/01/18 04/01/18 History carvedilol [Coreg] 3.125 mg PO BID 04/01/18 04/01/18 History hydrochlorothiazide 25 mg PO DAILY 04/01/18 04/01/18 History metformin 500 mg PO BID 04/01/18 04/01/18 History Active Medications: Active Medications Al Hydroxide/Mg Hydroxide (Milk Of Veronika Wood) 30 ml PO Q12H PRN PRN Reason: Mild Constipation Last Admin: 04/05/18 08:22 Dose: 30 ml Amlodipine Besylate (Norvasc) 5 mg PO DAILY [facility] Aspirin (Aspirin) 325 mg PO DAILY [facility] Last Admin: 04/06/18 08:41 Dose: Not Given Carvedilol (Coreg) 25 mg PO BID [facility] Chlorhexidine Gluconate (Chlorhexidine 2% Cloth) 3 pack TOPICAL DAILY@0400 [facility] Stop: 04/07/18 03:59 Last Admin: 04/06/18 04:05 Dose: Not Given Chlorhexidine Gluconate (Chlorhexidine 2% Cloth) 3 pack TOPICAL DAILY@0400 PRN PRN Reason: Extra cloth needed Stop: 04/07/18 03:59 Dextrose (D50w Vial) 50 ml IV.PUSH UNSCH PRN PRN Reason: PER HYPOGLYCEMIA PROTOCOL Glucagon (Glucagon Inj) 1 mg OTHER PRN PRN PRN Reason: for Hypoglycemia Protocol Hydrochlorothiazide (Hydrodiuril) 25 mg PO DAILY [facility] Last Admin: 04/06/18 08:46 Dose: 25 mg Nicardipine/Sodium Chloride (Cardene 20 Mg/Ns 200 Ml Premix) 20 mg in 200 mls @ 50 mls/hr IV.SIG TITRATE PRN; Protocol PRN Reason: PER PROTOCOL Last Titration: 04/04/18 08:39 Dose: 5 mg/hr, 50 mls/hr Heparin Sodium/Dextrose (Heparin/D5w 25,000 U/250 Ml) 25,000 unit in 250 mls @ 10 mls/hr IV.CONT TITRATE PRN; Protocol PRN Reason: Per Protocol Last Admin: 04/06/18 12:08 Dose: 1,400 units/hr, 14 mls/hr Levofloxacin/Dextrose (Levaquin 750 Mg Premix Inj) 150 mls @ 100 mls/hr IV.SIG Q24H [facility] Last Infusion: 04/05/18 18:28 Dose: Infused Lactated Ringer's (Lr 1000 Ml Inj) 1,000 mls @ 30 mls/hr IV.SIG .Q24H [facility] Stop: 04/07/18 10:14 Sodium Chloride (Ns Inj) 500 mls @ 30 mls/hr IV.SIG .Q10H ONE Stop: 04/07/18 03:39 Insulin Aspart (Novolog Insulin Correctional Sugar Inj) 0 unit SQ ACHS [facility]; Protocol Last Admin: 04/06/18 12:04 Dose: Not Given Lactobacillus Acidophilus (Lactinex) 1 tab PO TID [facility] Last Admin: 04/06/18 12:04 Dose: Not Given Lisinopril (Prinivil) 40 mg PO DAILY [facility] Last Admin: 04/06/18 08:46 Dose: 40 mg Magnesium Oxide (Mag-Ox) 400 mg PO BID [facility] Ondansetron HCl (Zofran Inj) 4 mg IV.PUSH Q6H PRN PRN Reason: NAUSEA OR VOMITING Sodium Chloride (Ns Flush) 2 ml IV.FLUSH PRN PRN PRN Reason: FLUSH AFTER USING IV ACCESS Last Admin: 04/01/18 12:47 Dose: 2 ml Warfarin Sodium (Coumadin) 5 mg PO DAILY@1600 [facility] Physical Exam Vital signs: Vital Signs 04/05/18 16:00 04/05/18 20:00 04/06/18 00:00 Temperature 97.9 F 97.8 F 97.7 F Pulse Rate 77 85 79 Respiratory Rate 16 18 18 Blood Pressure 169/86 H 176/91 H 198/97 H Pulse Oximetry 100 97 100 04/06/18 00:28 04/06/18 02:45 04/06/18 04:00 Temperature 97.9 F Pulse Rate 89 74 84 Respiratory Rate 18 Blood Pressure 198/98 H 121/67 165/81 H Pulse Oximetry 95 04/06/18 07:47 04/06/18 08:00 04/06/18 08:48 Temperature 98.2 F Pulse Rate 79 Respiratory Rate 20 Blood Pressure Pulse Oximetry 97 97 98 04/06/18 12:00 Temperature 97.8 F Pulse Rate 79 Respiratory Rate 18 Blood Pressure 164/87 H Pulse Oximetry 95 Intake & Output 04/05/18 04/06/18 04/06/18 18:59 06:59 18:59 Intake Total 1360 / 1360 220 / 220 Output Total 1000 / 1000 575 / 575 900 / 900 Balance 360 / 360 -575 / -575 -680 / -680 Weight 68.3 kg Intake: IV 400 / 400 220 / 220 Heparin/D5W 25,000 U/250 mL 25, 250 / 250 220 / 220 000 unit In 250 ml @ 1,000 UNITS/HR 10 mls/hr IV.CONT TITRATE PRN Rx#:[id number] Levaquin 750 mg Premix Inj 150 150 / 150 ML @ 100 mls/hr IV.SIG Q24H [facility]ARY Rx#:[id number] Oral 960 / 960 Output: Urine 1000 / 1000 575 / 575 900 / 900 Other: # Incontinent Voids 1 Date of Last Bowel Movement 04/01/18 04/01/18 04/01/18 # Bowel Movements 0 - Constitutional no acute distress - Routine HEENT Exam Head: Present: normocephalic Eye: Present: PERRL ENT: Present: mucous membranes moist - Routine Neck Exam Present: full ROM - Routine Respiratory Exam Present: CTA bilaterally - Routine Cardiovascular Exam Present: S1, S2. Absent: murmur, gallop, rubs - Routine Abdominal Exam Present: normoactive bowel sounds - Routine Extremities Exam Present: full ROM, pulses intact, normal capillary refill. Absent: cyanosis, clubbing, edema - Routine Skin Exam Present: intact - Routine Neurological Exam Present: oriented X3 Patient does not appear to be having expressive aphasia at this time. - Detailed Neurological Exam: Coma Scale Eye Opening: Spontaneous Verbal Response: Oriented Motor Response: Obey commands [place] Coma Scale Total: 15 - Routine Psychiatric Exam Present: normal affect Results 04/06/18 03:38 04/06/18 03:38 Cardiac Enzymes 04/05/18 04/06/18 Range/Units 06:51 03:38 AST 47 H 27 (15-37) U/L Coagulation 04/05/18 04/05/18 04/05/18 Range/Units 06:51 15:27 21:29 PT (9.8-11.6) sec APTT 37.3 H 36.9 H 39.6 H (23.4-31.7) sec 04/06/18 04/06/18 Range/Units 03:38 11:10 PT 10.9 (9.8-11.6) sec APTT 43.3 H 40.8 H (23.4-31.7) sec CBC 04/05/18 04/06/18 Range/Units 06:51 03:38 WBC 12.5 H 9.2 (4.0-11.0) th/mm3 RBC 4.10 L 4.27 L (4.50-5.90) mil/mm3 Hgb 13.1 13.4 (13.0-17.0) gm/dL Hct 37.0 L 39.3 (39.0-51.0) % Plt Count 160 170 (150-450) th/mm3 Neut # (Auto) 10.3 H 7.1 (1.8-7.7) th/mm3 Lymph # (Auto) 1.1 1.0 (1.0-4.8) th/mm3 [place] # (Auto) 1.0 H 0.9 (0.0-0.9) th/mm3 Eos # (Auto) 0.0 0.1 (0.0-0.4) th/mm3 Baso # (Auto) 0.1 0.1 (0.0-0.2) th/mm3 Comprehensive Metabolic Panel 04/04/18 04/05/18 04/06/18 Range/Units 16:55 06:51 03:38 Sodium 142 140 (136-145) meq/L Potassium 3.4 L 3.7 3.4 L (3.5-5.1) meq/L Chloride 106 99 (98-107) meq/L Carbon Dioxide 26.2 29.8 (21.0-32.0) meq/L BUN 15 19 H (7-18) mg/dL Creatinine 0.87 1.05 (0.60-1.30) mg/dL Calcium 8.6 D 8.6 (8.5-10.1) mg/dL AST 47 H 27 (15-37) U/L ALT 30 27 (12-78) U/L Alkaline Phosphatase 94 89 (45-117) U/L Total Protein 7.0 D 6.8 (6.4-8.2) g/dL Albumin 3.0 L 2.7 L (3.4-5.0) g/dL Intake and Output 04/05/18 04/06/18 04/06/18 22:59 06:59 14:59 Intake Total 1360 / 1360 220 / 220 Output Total 1000 / 1000 575 / 575 900 / 900 Balance 360 / 360 -575 / -575 -680 / -680 Intake: IV 400 / 400 220 / 220 Heparin/D5W 25,000 U/250 mL 25, 250 / 250 220 / 220 000 unit In 250 ml @ 1,000 UNITS/HR 10 mls/hr IV.CONT TITRATE PRN Rx#:[id number] Levaquin 750 mg Premix Inj 150 150 / 150 ML @ 100 mls/hr IV.SIG Q24H [facility] Rx#:[id number] Oral 960 / 960 Output: Urine 1000 / 1000 575 / 575 900 / 900 Other: # Incontinent Voids 1 Date of Last Bowel Movement 04/01/18 04/01/18 # Bowel Movements 0 Weight 68.3 kg - Imaging and Cardiology Imaging: Impressions Head MRI 04/04/18 00:00 CONCLUSION: 1. Small acute/subacute infarct of the left occipital lobe is not significantly changed. 2. No new infarct has developed in the interim. No bleed. 3. 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 Chest X-Ray 04/05/18 00:00 CONCLUSION: Cardiomegaly with left basilar airspace disease. Differential diagnosis includes atelectasis and pneumonia. Small effusions also noted. Questionable early infiltrate right upper lobe as well. Assessment and Plan - Assessment (1) CVA (cerebral vascular accident) Code(s): I63.9 - Cerebral infarction, unspecified Status: Acute (2) Transient cerebral ischemia Code(s): G45.9 - Transient cerebral ischemic attack, unspecified Status: Acute (3) Hypertensive emergency Code(s): I16.1 - Hypertensive emergency Status: Acute (4) Elevated troponin Code(s): R74.8 - Abnormal levels of other serum enzymes Status: Acute - Plan Patient remains hypertensive. We will increase his Coreg to 25mg BID for better blood pressure control. Full anticoagulation with warfarin initiated. We will be placing a loop monitor today to evaluate for paroxysmal atrial fibrillation. Procedure discussed with the patient. Keep patient NPO except medications. Have consent signed and placed on the chart for implantable loop recorder. Patient to follow up with Dr. Simon post discharge from the hospital The patient was seen and evaluated by Dr. Morrell who participated in care, management and decision making. - Attending Attestation Patient seen and examined. I reviewed and agree with the evaluation and plan as presented. Dx with CVA, full anticoagulation initiated. Will proceed with loop monitor placement to evaluate for a fib.
[2018-04-06] MEDS ORDERED: fentaNYL Citrate Inj 100 MCG/2 ML Ampul ONE (13:57)
[2018-04-06] MEDS ORDERED: Lidocaine 1% Inj 50 ML Vial ONE (14:24)
[2018-04-06] MEDS ORDERED: Mupirocin 2% Nasal Oint Topical Syringe EACH NARE SCH (15:00)
[2018-04-06] MEDS ORDERED: ceFAZolin 2 GM Premix Inj 2 GM/50 ML PIGGYBACK IV.SIG SCH (15:00)
[2018-04-06] MEDS ORDERED: Chlorhexidine Gluconate 2% 1 Pack (2 Cloths) TOPICAL SCH (15:00)
--- NOTE | 2018-04-06 15:44 | MR ---
cc: Jake Morrell MD DATE: 04/06/2018 INDICATION: CVA, evaluation for atrial fibrillation. PROCEDURE PERFORMED: 1. Placement of Medtronic Reveal LINQ MRI compatible loop monitor. 2. Moderate sedation. ACCESS SITE: Left anterior chest. EQUIPMENT USED: Medtronic Reveal LINQ MRI compatible loop monitor, serial #[id number]. COMPLICATIONS: None. BLOOD LOSS: Less than 1 mL. DESCRIPTION OF PROCEDURE: After the patient was prepped and draped in the usual sterile manner, local anesthesia with 1% lidocaine was obtained. Medtronic Reveal LINQ MRI compatible loop monitor was placed without difficulty. R-wave was 1.53 millivolts. DIAGNOSIS: Successful placement of Medtronic Reveal LINQ MRI compatible loop monitor. DISPOSITION: Mr. Healy will continue his current medical program including anticoagulation. We will initiate long-term monitoring of his device. Jake Morrell MD OQ/es , 02:46 PM , 02:53 PM MTDD
[2018-04-06] MEDS: Sod Chloride 0.9% Inj 1,000 ML IV.CONT SCH (16:04)
[2018-04-06 16:53] LABS: Hemoglobin A1c 6.8 % (4.3-6.0)
[2018-04-06] MEDS: amLODIPine 5 MG Tablet PO SCH (21:37)
[2018-04-06] MEDS: Carvedilol 12.5 MG Tablet PO SCH (21:37)
[2018-04-06] MEDS: Magnesium Oxide 400 MG Tablet PO SCH (21:37)
[2018-04-07] MEDS: Heparin Drip 25,000 UNIT/250 ML BAG IV.CONT PRN ×2 (05:36→23:39)
[2018-04-07 07:18] LABS: Activated Partial Thrombo Time 42.9 sec (23.4-31.7); INR 1.5 Ratio; Prothrombin Time 15.4 sec (9.8-11.6)
[2018-04-07 07:20] LABS: Baso % (Auto) 0.6 % (0.0-2.0); Eos # (Auto) 0.1 th/mm3 (0.0-0.4); Eos % (Auto) 1.4 % (0.0-4.0); Hematocrit 39.8 % (39.0-51.0); Hemoglobin 13.9 gm/dL (13.0-17.0); Lymph # (Auto) 1.1 th/mm3 (1.0-4.8); Lymph % (Auto) 13.3 % (9.0-44.0); Mean Corpuscular HGB Conc 34.9 % (32.0-36.0); Mean Corpuscular Hemoglobin 31.5 pg (27.0-34.0); Mean Corpuscular Volume 90.2 fL (80.0-100.0); Mean Platelet Volume 8.6 fL (7.0-11.0); Mono # (Auto) 0.9 th/mm3 (0.0-0.9); Mono % (Auto) 10.9 % (0.0-8.0); Neut # (Auto) 6.3 th/mm3 (1.8-7.7); Neut % (Auto) 73.8 % (16.0-70.0); Platelet Count 183 th/mm3 (150-450); Red Blood Count 4.41 mil/mm3 (4.50-5.90); Red Cell Distribution Width 13.1 % (11.6-17.2); White Blood Count 8.6 th/mm3 (4.0-11.0)
[2018-04-07 07:29] LABS: Calcium 8.8 mg/dL (8.5-10.1); Carbon Dioxide 29.4 meq/L (21.0-32.0); Potassium 3.7 meq/L (3.5-5.1)
[2018-04-07] MEDS: hydroCHLOROthiazide 25 MG Tablet PO SCH (08:44)
[2018-04-07] MEDS: amLODIPine 5 MG Tablet PO SCH (08:44)
[2018-04-07] MEDS: Magnesium Oxide 400 MG Tablet PO SCH ×2 (08:44→21:05)
[2018-04-07] MEDS: Aspirin 325 MG Tablet PO SCH (08:44)
[2018-04-07] MEDS: Lisinopril 20 MG Tablet PO SCH (08:44)
[2018-04-07] MEDS: Carvedilol 12.5 MG Tablet PO SCH ×2 (08:44→21:05)
[2018-04-07] MEDS: Insulin NovoLOG Aspart Correctional Sugar Inj SQ SCH ×4 (08:45→21:06)
[2018-04-07] MEDS: Lactobacillus Acidophilus/L. Spores Tablet PO SCH ×3 (08:45→17:29)
--- NOTE | 2018-04-07 14:45 | P.PNIM ---
Physical Exam Vital signs: Last Vital Signs Temp 98.6 F 04/07/18 12:00 Pulse 67 04/07/18 12:00 Resp 20 04/07/18 12:00 BP 155/77 H 04/07/18 12:00 Pulse Ox 98 04/07/18 12:00 Intake & Output 04/05/18 04/06/18 04/07/18 04/08/18 06:59 06:59 06:59 06:59 Intake Total 930 / 930 1360 / 1360 1100 / 1100 Output Total 1250 / 1250 1575 / 1575 3300 / 3300 Balance -320 / -320 -215 / -215 -2200 / -2200 Weight 68.2 kg 68.3 kg 73.1 kg Narrative: GENERAL: This is a well-nourished, well-developed patient, in no apparent distress. CARDIOVASCULAR: Regular rate and rhythm RESPIRATORY: Clear to auscultation. Breath sounds equal bilaterally. No wheezes , rales, or rhonchi. GASTROINTESTINAL: Abdomen soft, non-tender, nondistended. Normal active bowel sounds MUSCULOSKELETAL: Extremities without clubbing, cyanosis, or edema. NEURO: Alert and oriented person and place, moves bilateral upper and lower extremities without difficulty Results Labs CBC & Chem 7: 04/07/18 06:15 04/07/18 06:15 Assessment and Plan (1) CVA (cerebral vascular accident): Code(s): I63.9 - Cerebral infarction, unspecified Status: Acute (2) Transient cerebral ischemia: Code(s): G45.9 - Transient cerebral ischemic attack, unspecified Status: Acute (3) Hypertensive emergency: Code(s): I16.1 - Hypertensive emergency Status: Acute (4) Elevated troponin: Code(s): R74.8 - Abnormal levels of other serum enzymes Status: Acute Plan 63 year old male admitted with hypertensive emergency, slurred speech, EKG changes and troponin elevation. 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 castro. Continue with OT, PT and speech therapy MRI of the brain on 04/04 shows small acute/subacute infarct the left occipital lobe INR 1.5 today we will continue with heparin. Feverresolved Suspected community-acquired pneumonia with findings on chest x-ray with left basilar airspace disease Continue Levaquin and switch over to p.o. Start probiotics Follow clinically Hypertensive emergencyresolved but with continued uncontrolled blood pressures Currently on Coreg, HCTZ, lisinopril Will increase Norvasc dosing Hypokalemiareplete , continue magnesium supplements Diabetes mellitus type 2, labile Follow blood sugars Insulin sliding scale Diabetic diet Restart metformin, hemoglobin A1c 6.8 Constipationstool softeners and bowel regimen DVT prophylaxis SCDs Discharge Planning: To [facility] when stable Progress Note: Quality VTE Deep Vein Thrombosis/Pulmonary Embolism Present on Admission: No _ (1) CVA (cerebral vascular accident) Qualifiers: CVA mechanism: Precerebral and cerebral artery: Laterality of affected vessel: (2) Transient cerebral ischemia Qualifiers: Transient cerebral ischemia type:
[2018-04-07] MEDS ORDERED: Bisacodyl 10 MG Supp RECTAL PRN (14:47)
[2018-04-07] MEDS ORDERED: Polyethylene Glycol 3350 17 GM Packet PO ONE (15:00)
--- NOTE | 2018-04-07 16:27 | P.PNCA ---
Subjective Interval history: Patient denies any CP, pressure, palpitations, dizziness, edema or SOB. Medications and Allergies Allergies Allergy/AdvReac Type Severity Reaction Status Date / Time No Known Allergies Allergy Verified 04/01/18 12:15 Home Medications Medication Instructions Recorded Confirmed Type aspirin 325 mg PO DAILY 04/01/18 04/01/18 History carvedilol [Coreg] 3.125 mg PO BID 04/01/18 04/01/18 History hydrochlorothiazide 25 mg PO DAILY 04/01/18 04/01/18 History metformin 500 mg PO BID 04/01/18 04/01/18 History Active Medications: Active Medications Al Hydroxide/Mg Hydroxide (Milk Of Magnesia Liq) 30 ml PO Q12H PRN PRN Reason: Mild Constipation Last Admin: 04/05/18 08:22 Dose: 30 ml Al Hydroxide/Mg Hydroxide (Milk Of Magnesia Liq) 30 ml PO Q12H PRN PRN Reason: Mild Constipation Amlodipine Besylate (Norvasc) 10 mg PO DAILY [facility] Aspirin (Aspirin) 325 mg PO DAILY [facility] Last Admin: 04/07/18 08:44 Dose: 325 mg Bisacodyl (Dulcolax Supp) 10 mg RECTAL DAILY PRN PRN Reason: SEVERE CONSITIPATION Carvedilol (Coreg) 25 mg PO BID [facility] Last Admin: 04/07/18 08:44 Dose: 25 mg Chlorhexidine Gluconate (Chlorhexidine 2% Cloth) 3 pack TOPICAL [employer] [facility] Stop: 04/09/18 14:56 Dextrose (D50w Vial) 50 ml IV.PUSH UNSCH PRN PRN Reason: PER HYPOGLYCEMIA PROTOCOL Glucagon (Glucagon Inj) 1 mg OTHER PRN PRN PRN Reason: for Hypoglycemia Protocol Hydrochlorothiazide (Hydrodiuril) 25 mg PO DAILY [facility] Last Admin: 04/07/18 08:44 Dose: 25 mg Nicardipine/Sodium Chloride (Cardene 20 Mg/Ns 200 Ml Premix) 20 mg in 200 mls @ 50 mls/hr IV.SIG TITRATE PRN; Protocol PRN Reason: PER PROTOCOL Last Titration: 04/04/18 08:39 Dose: 5 mg/hr, 50 mls/hr Heparin Sodium/Dextrose (Heparin/D5w 25,000 U/250 Ml) 25,000 unit in 250 mls @ 10 mls/hr IV.CONT TITRATE PRN; Protocol PRN Reason: Per Protocol Last Admin: 04/07/18 05:36 Dose: 1,400 units/hr, 14 mls/hr Sodium Chloride (Ns Inj) 1,000 mls @ 30 mls/hr IV.CONT .Q24H [facility] Last Admin: 04/06/18 16:04 Dose: Not Given Cefazolin Sodium/Dextrose (Ancef 2 Gm Premix Inj) 2 gm in 50 mls @ 100 mls/hr IV.SIG [employer] [facility] Stop: 04/09/18 14:56 Last Admin: 04/06/18 14:27 Dose: 100 mls/hr Insulin Aspart (Novolog Insulin Correctional Sugar Inj) 0 unit SQ ACHS [facility]; Protocol Last Admin: 04/07/18 12:08 Dose: 5 unit Lactobacillus Acidophilus (Lactinex) 1 tab PO TID [facility] Last Admin: 04/07/18 12:08 Dose: 1 tab Lactulose (Lactulose Liq) 30 ml PO DAILY PRN PRN Reason: SEVERE CONSITIPATION Levofloxacin (Levaquin) 750 mg PO DAILY@1700 [facility] Lisinopril (Prinivil) 40 mg PO DAILY [facility] Last Admin: 04/07/18 08:44 Dose: 40 mg Magnesium Oxide (Mag-Ox) 400 mg PO BID [facility] Last Admin: 04/07/18 08:44 Dose: 400 mg Mupirocin (Bactroban 2% Nasal Oint) 1 applicatio EACH NARE [employer] [facility] Stop: 04/09/18 14:56 Ondansetron HCl (Zofran Inj) 4 mg IV.PUSH Q6H PRN PRN Reason: NAUSEA OR VOMITING Povidone Iodine (Betadine 5% Antisepsis Kit) 1 applicatio EACH NARE [employer] [facility] Stop: 04/09/18 14:56 Senna/Docusate Sodium (Claire-Colace) 1 tab PO BID [facility] Sennosides (Senokot) 17.2 mg PO Q12H PRN PRN Reason: Moderate Constipation Sodium Chloride (Ns Flush) 2 ml IV.FLUSH PRN PRN PRN Reason: FLUSH AFTER USING IV ACCESS Last Admin: 04/01/18 12:47 Dose: 2 ml Warfarin Sodium (Coumadin) 5 mg PO DAILY@1600 [facility] Last Admin: 04/06/18 16:04 Dose: 5 mg Physical Exam Vital signs: Vital Signs 11/12/18 20:00 04/06/18 20:35 04/07/18 00:00 Temperature 98.0 F 98.1 F Pulse Rate 80 77 Respiratory Rate 18 18 Blood Pressure 192/91 H 189/98 H Pulse Oximetry 100 100 97 04/07/18 04:00 04/07/18 08:00 04/07/18 10:45 Temperature 97.9 F 98.3 F Pulse Rate 78 74 Respiratory Rate 18 20 Blood Pressure 194/93 H 205/110 H Pulse Oximetry 96 100 99 04/07/18 12:00 Temperature 98.6 F Pulse Rate 67 Respiratory Rate 20 Blood Pressure 155/77 H Pulse Oximetry 98 Intake & Output 04/06/18 04/07/18 04/07/18 18:59 06:59 18:59 Intake Total 850 / 850 250 / 250 Output Total 1700 / 1700 1600 / 1600 Balance -850 / -850 -1350 / -1350 Weight 73.1 kg Intake: IV 370 / 370 250 / 250 Heparin/D5W 25,000 U/250 mL 25, 220 / 220 250 / 250 000 unit In 250 ml @ 1,000 UNITS/HR 10 mls/hr IV.CONT TITRATE PRN Rx#:[id number] Levaquin 750 mg Premix Inj 150 150 / 150 ML @ 100 mls/hr IV.SIG Q24H [facility] Rx#:[id number] Oral 480 / 480 Output: Urine 1700 / 1700 1600 / 1600 Other: # Incontinent Voids 1 Date of Last Bowel Movement 04/01/18 04/01/18 04/01/18 # Bowel Movements 0 - Constitutional no acute distress - Routine HEENT Exam Head: Present: normocephalic Eye: Present: PERRL ENT: Present: mucous membranes moist - Routine Neck Exam Present: full ROM - Routine Respiratory Exam Present: CTA bilaterally - Routine Cardiovascular Exam Present: S1, S2. Absent: murmur, gallop, rubs - Routine Abdominal Exam Present: normoactive bowel sounds - Routine Extremities Exam Present: full ROM, pulses intact, normal capillary refill. Absent: cyanosis, clubbing, edema - Routine Skin Exam Present: intact Comments: Small incision s/p Loop monitor placement yesterday. Dressing is dry and intact without signs of bleeding or hematoma. - Routine Neurological Exam Present: oriented X3 - Detailed Neurological Exam: Coma Scale Eye Opening: Spontaneous Verbal Response: Oriented Motor Response: Obey commands [place] Coma Scale Total: 15 - Routine Psychiatric Exam Present: normal affect Results 04/07/18 06:15 04/07/18 06:15 Cardiac Enzymes 04/06/18 Range/Units 03:38 AST 27 (15-37) U/L Coagulation 04/05/18 04/06/18 04/06/18 Range/Units 21:29 03:38 11:10 PT 10.9 (9.8-11.6) sec APTT 39.6 H 43.3 H 40.8 H (23.4-31.7) sec 04/06/18 04/07/18 Range/Units 19:10 06:15 PT 15.4 H (9.8-11.6) sec APTT 43.2 H 42.9 H (23.4-31.7) sec CBC 04/06/18 04/07/18 Range/Units 03:38 06:15 WBC 9.2 8.6 (4.0-11.0) th/mm3 RBC 4.27 L 4.41 L (4.50-5.90) mil/mm3 Hgb 13.4 13.9 (13.0-17.0) gm/dL Hct 39.3 39.8 (39.0-51.0) % Plt Count 170 183 (150-450) th/mm3 Neut # (Auto) 7.1 6.3 (1.8-7.7) th/mm3 Lymph # (Auto) 1.0 1.1 (1.0-4.8) th/mm3 [place] # (Auto) 0.9 0.9 (0.0-0.9) th/mm3 Eos # (Auto) 0.1 0.1 (0.0-0.4) th/mm3 Baso # (Auto) 0.1 0.0 (0.0-0.2) th/mm3 Comprehensive Metabolic Panel 04/06/18 04/07/18 Range/Units 03:38 06:15 Sodium 140 137 (136-145) meq/L Potassium 3.4 L 3.7 (3.5-5.1) meq/L Chloride 99 99 (98-107) meq/L Carbon Dioxide 29.8 29.4 (21.0-32.0) meq/L BUN 19 H 20 H (7-18) mg/dL Creatinine 1.05 0.92 (0.60-1.30) mg/dL Calcium 8.6 8.8 (8.5-10.1) mg/dL AST 27 (15-37) U/L ALT 27 (12-78) U/L Alkaline Phosphatase 89 (45-117) U/L Total Protein 6.8 (6.4-8.2) g/dL Albumin 2.7 L (3.4-5.0) g/dL Intake and Output 04/07/18 04/07/18 04/07/18 06:59 14:59 22:59 Intake Total 250 / 250 Output Total 1600 / 1600 Balance -1350 / -1350 Intake: IV 250 / 250 Heparin/D5W 25,000 U/250 mL 25, 250 / 250 000 unit In 250 ml @ 1,000 UNITS/HR 10 mls/hr IV.CONT TITRATE PRN Rx#:[id number] Output: Urine 1600 / 1600 Other: Date of Last Bowel Movement 04/01/18 Weight 73.1 kg Assessment and Plan - Assessment (1) CVA (cerebral vascular accident) Code(s): I63.9 - Cerebral infarction, unspecified Status: Acute (2) Transient cerebral ischemia Code(s): G45.9 - Transient cerebral ischemic attack, unspecified Status: Acute (3) Hypertensive emergency Code(s): I16.1 - Hypertensive emergency Status: Acute (4) Elevated troponin Code(s): R74.8 - Abnormal levels of other serum enzymes Status: Acute - Plan No new cardiac issues at this time. Patient is s/p loop monitor placement yesterday, site is stable. Patient continues to be hypertensive, will increase his Amlodipine to 10mg. Continue anticoagulation with warfarin. Patient to follow up with Dr. Simon post discharge from the hospital The patient was seen and evaluated by Dr. Morrell who participated in care, management and decision making. - Attending Attestation Patient seen and examined. I reviewed and agree with the evaluation and plan as presented. Titrate tx for HTN. Start long-term monitoring of his new device.
[2018-04-07] MEDS: Sod Chloride 0.9% Inj 1,000 ML IV.CONT SCH (16:45)
[2018-04-07] MEDS: levoFLOXacin 750 MG Tablet PO SCH (16:45)
[2018-04-07] MEDS: Senna/Docusate Sodium 8.6/50 MG Tablet PO SCH (21:06)
[2018-04-08] MEDS ORDERED: hydrALAZINE 25 MG Tablet PO ONE (02:28)
--- NOTE | 2018-04-08 07:58 | P.PNNEU ---
Subjective Subjective Comments: sr Active Medications: Active Medications Al Hydroxide/Mg Hydroxide (Milk Of Magnesia Liq) 30 ml PO Q12H PRN PRN Reason: Mild Constipation Last Admin: 04/05/18 08:22 Dose: 30 ml Al Hydroxide/Mg Hydroxide (Milk Of Magnesia Liq) 30 ml PO Q12H PRN PRN Reason: Mild Constipation Amlodipine Besylate (Norvasc) 10 mg PO DAILY [facility] Aspirin (Aspirin) 325 mg PO DAILY [facility] Last Admin: 04/07/18 08:44 Dose: 325 mg Bisacodyl (Dulcolax Supp) 10 mg RECTAL DAILY PRN PRN Reason: SEVERE CONSITIPATION Carvedilol (Coreg) 25 mg PO BID [facility] Last Admin: 04/07/18 21:05 Dose: 25 mg Chlorhexidine Gluconate (Chlorhexidine 2% Cloth) 3 pack TOPICAL AIRLINE TRANSPORT PILOT [facility] Stop: 04/09/18 14:56 Dextrose (D50w Vial) 50 ml IV.PUSH UNSCH PRN PRN Reason: PER HYPOGLYCEMIA PROTOCOL Glucagon (Glucagon Inj) 1 mg OTHER PRN PRN PRN Reason: for Hypoglycemia Protocol Hydrochlorothiazide (Hydrodiuril) 25 mg PO DAILY [facility] Last Admin: 04/07/18 08:44 Dose: 25 mg Nicardipine/Sodium Chloride (Cardene 20 Mg/Ns 200 Ml Premix) 20 mg in 200 mls @ 50 mls/hr IV.SIG TITRATE PRN; Protocol PRN Reason: PER PROTOCOL Last Titration: 04/04/18 08:39 Dose: 5 mg/hr, 50 mls/hr Heparin Sodium/Dextrose (Heparin/D5w 25,000 U/250 Ml) 25,000 unit in 250 mls @ 10 mls/hr IV.CONT TITRATE PRN; Protocol PRN Reason: Per Protocol Last Admin: 04/07/18 23:39 Dose: 1,400 units/hr, 14 mls/hr Sodium Chloride (Ns Inj) 1,000 mls @ 30 mls/hr IV.CONT .Q24H [facility] Last Admin: 04/07/18 16:45 Dose: Not Given Cefazolin Sodium/Dextrose (Ancef 2 Gm Premix Inj) 2 gm in 50 mls @ 100 mls/hr IV.SIG AIRLINE TRANSPORT PILOT [facility] Stop: 04/09/18 14:56 Last Admin: 04/06/18 14:27 Dose: 100 mls/hr Insulin Aspart (Novolog Insulin Correctional Sugar Inj) 0 unit SQ ACHS [facility]; Protocol Last Admin: 04/07/18 21:06 Dose: 3 unit Lactobacillus Acidophilus (Lactinex) 1 tab PO TID [facility] Last Admin: 04/07/18 17:29 Dose: 1 tab Lactulose (Lactulose Liq) 30 ml PO DAILY PRN PRN Reason: SEVERE CONSITIPATION Levofloxacin (Levaquin) 750 mg PO DAILY@1700 [facility] Last Admin: 04/07/18 16:45 Dose: 750 mg Lisinopril (Prinivil) 40 mg PO DAILY [facility] Last Admin: 04/07/18 08:44 Dose: 40 mg Magnesium Oxide (Mag-Ox) 400 mg PO BID [facility] Last Admin: 04/07/18 21:05 Dose: 400 mg Mupirocin (Bactroban 2% Nasal Oint) 1 applicatio EACH NARE AIRLINE TRANSPORT PILOT [facility] Stop: 04/09/18 14:56 Ondansetron HCl (Zofran Inj) 4 mg IV.PUSH Q6H PRN PRN Reason: NAUSEA OR VOMITING Povidone Iodine (Betadine 5% Antisepsis Kit) 1 applicatio EACH NARE AIRLINE TRANSPORT PILOT [facility] Stop: 04/09/18 14:56 Senna/Docusate Sodium (Claire-Colace) 1 tab PO BID [facility] Last Admin: 04/07/18 21:06 Dose: 1 tab Sennosides (Senokot) 17.2 mg PO Q12H PRN PRN Reason: Moderate Constipation Sodium Chloride (Ns Flush) 2 ml IV.FLUSH PRN PRN PRN Reason: FLUSH AFTER USING IV ACCESS Last Admin: 04/01/18 12:47 Dose: 2 ml Warfarin Sodium (Coumadin) 5 mg PO DAILY@1600 [facility] Last Admin: 04/07/18 16:45 Dose: 5 mg Allergies/Adverse Reactions: Allergies Allergy/AdvReac Type Severity Reaction Status Date / Time No Known Allergies Allergy Verified 04/01/18 12:15 Physical Exam Vital signs: Vital Signs 04/07/18 08:00 04/07/18 10:45 04/07/18 12:00 Temperature 98.3 F 98.6 F Pulse Rate 74 67 Respiratory Rate 20 20 Blood Pressure 205/110 H 155/77 H Pulse Oximetry 100 99 98 04/07/18 16:00 11/13/18 20:00 04/07/18 20:05 Temperature 97.9 F 98.2 F Pulse Rate 69 70 69 Respiratory Rate 20 20 Blood Pressure 182/92 H 169/88 H Pulse Oximetry 98 95 04/07/18 23:58 04/08/18 00:00 04/08/18 02:38 Temperature 97.9 F Pulse Rate 65 71 Respiratory Rate 19 Blood Pressure 192/90 H 192/90 H Pulse Oximetry 96 04/08/18 03:33 04/08/18 04:03 04/08/18 04:38 Temperature Pulse Rate 71 Respiratory Rate Blood Pressure 182/85 H 172/80 H Pulse Oximetry 04/08/18 06:53 Temperature Pulse Rate Respiratory Rate 12 Blood Pressure Pulse Oximetry Intake & Output 04/07/18 04/08/18 04/08/18 18:59 06:59 18:59 Intake Total 760 / 760 250 / 250 Output Total 600 / 600 1000 / 1000 Balance 160 / 160 -750 / -750 Weight 73.1 kg Intake: IV 250 / 250 Heparin/D5W 25,000 U/250 mL 25, 250 / 250 000 unit In 250 ml @ 1,000 UNITS/HR 10 mls/hr IV.CONT TITRATE PRN Rx#:[id number] Oral 760 / 760 Output: Urine 600 / 600 1000 / 1000 Other: # Voids 3 Date of Last Bowel Movement 04/07/18 04/07/18 04/08/18 # Bowel Movements 1 Narrative: awake alert nl speech sitting up nad Objective Laboratory Results - last 24 hr 04/07/18 04/08/18 20:59 07:32 POC Glucose 201 H 155 H Review/Management - Review/Management Plan: IMP- left medial post temp/occipital acute cva and od r cbllr and 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 04/06/18 no change on coumadin and hep holter neg x some rare atrial runs? would like to get loop bobbi ok to run bp 140/70 left carotid not very narrow as above oob 04/08/18 loop in on coumadin restrict greens i dw him stable neuro ok to dc when inr >1.9 needs close inr following with ? pcp after dc and maybe explained to any family members also so he can have support backup
[2018-04-08] MEDS: Magnesium Oxide 400 MG Tablet PO SCH ×2 (08:19→22:01)
[2018-04-08] MEDS: Lactobacillus Acidophilus/L. Spores Tablet PO SCH ×3 (08:19→17:00)
[2018-04-08] MEDS: Senna/Docusate Sodium 8.6/50 MG Tablet PO SCH ×2 (08:19→21:30)
[2018-04-08] MEDS: Aspirin 325 MG Tablet PO SCH (08:19)
[2018-04-08] MEDS: Lisinopril 20 MG Tablet PO SCH (08:19)
[2018-04-08] MEDS: Carvedilol 12.5 MG Tablet PO SCH ×2 (08:19→21:28)
[2018-04-08] MEDS: hydroCHLOROthiazide 25 MG Tablet PO SCH (08:19)
[2018-04-08] MEDS: amLODIPine 10 MG Tablet PO SCH (08:19)
[2018-04-08] MEDS: Insulin NovoLOG Aspart Correctional Sugar Inj SQ SCH ×4 (08:20→22:01)
--- NOTE | 2018-04-08 09:26 | P.DS ---
DS: Providers Date of admission: 04/01/18 14:48 Primary care physician: UNKNOWN Consults: Dr. Mirza Mckinley, neurology Dr. morrell, cardiology Brief History from admission: Mr. Healy is a 63-year-old male. He came in secondary to altered mental status and slurred speech. He was noted to have hypertensive urgency/emergency with a blood pressure of 240 systolic. EKG changes are noted and also slight elevation in troponin. Etiology for his EKG changes, troponin elevation, and neurologic changes is likely related to his hypertensive emergency episode. Blood pressures have improved. When I am visiting with him his blood pressure is down to 160 systolic. He has resolution of his neural logic symptoms. No other complaints. He says this is happened before in the past. 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 Neurology service, Dr. Mckinley was consulted and advised us to place the patient on aspirin, bridging with heparin and Coumadin. A loop recorder was performed by Dr. morrell on April 06 which was requested of Dr. Mckinley. Patient underwent PT OT and speech therapy. On Coumadin his last INR was 1.5 on April 07 and repeat INR today is currently pending. It is recommended to be on heparin until the INR is greater than 1.9 Per neurology. Patient also had developed community-acquired pneumonia with findings of chest x -ray with left basilar airspace disease with few fever spikes during the hospitalization. Levaquin was initiated during the hospitalization for a 7-day course. Patient's presenting hypertensive emergency was resolved and medication adjustment was done with addition of Norvasc to his home ready Acacian regimen of Coreg, HCTZ and lisinopril. Metformin was also restarted eventually for his history of diabetes mellitus type 2. His hemoglobin A1c 6.8. At this time, patient will be transition to [facility] for continued inpatient rehab. Time Spent with Patient Total time spent providing and/or coordinating discharge services: Less than 30 minutes Quality: Stroke Last date observed well: 04/01/18 Last time observed well: 09:30 Rehab Services Assessed: Activities of daily living assessment Quality: VTE Deep Vein Thrombosis/Pulmonary Embolism Present on Admission: No Exam Narrative Exam Narrative: GENERAL: This is a well-nourished, well-developed patient, in no apparent distress. CARDIOVASCULAR: Regular rate and rhythm RESPIRATORY: Clear to auscultation. Breath sounds equal bilaterally. No wheezes , rales, or rhonchi. GASTROINTESTINAL: Abdomen soft, non-tender, nondistended. Normal active bowel sounds MUSCULOSKELETAL: Extremities without clubbing, cyanosis, or edema. NEURO: Alert & Oriented x4 to person, place, time,Moves all ext x4 Results Labs on day of discharge: Labs from last 24 hours 04/08/18 04/07/18 07:32 20:59 POC Glucose 155 H 201 H Impressions ITS Impressions Head CT 04/01/18 12:15 CONCLUSION: 1. Chronic ischemic changes and old right cerebellar infarct. 2. No evidence of acute infarct, hemorrhage, mass or edema. Report was called by Dr. Lucas to the ordering ED physician at 1235.] Head CTA 04/01/18 12:15 CONCLUSION: No evidence of proximal thrombus or significant steno-occlusive disease. Report was called by [Shayy to Dr. Mckinley at 1244. ] Neck CTA 04/01/18 12:15 CONCLUSION: 1. Moderate calcified and noncalcified plaque in the left carotid bifurcation with moderate narrowing at the origin of the internal carotid artery measuring 50%. 2. Widely patent right carotid bifurcation status post endarterectomy. 3. Symmetric patent vertebral arteries. Head MRI 04/04/18 00:00 CONCLUSION: 1. Small acute/subacute infarct of the left occipital lobe is not significantly changed. 2. No new infarct has developed in the interim. No bleed. 3. 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 Chest X-Ray 04/05/18 00:00 CONCLUSION: Cardiomegaly with left basilar airspace disease. Differential diagnosis includes atelectasis and pneumonia. Small effusions also noted. Questionable early infiltrate right upper lobe as well. Discharge Plan Discharge Disposition Patient Disposition: 62 Rehab Inpatient Discharge Condition Condition: Good Discharge Order Discharge Orders: Discharge Order (Routine); Ordered 04/08/18 Ordered By: Jennifer Daliey Discharge Details Anticipated Discharge Date: 04/01/18 Physicians Team ED Provider: Telly Peterson Primary Care Provider: SWETHA, Attending Provider: Jennifer Dailey Other Providers: [facility] ; [facility] ; [facility] Rxs /Orders / Referrals /Forms Prescriptions: No Action metformin 500 mg Tablet 500 mg PO BID RF: 0 aspirin 325 mg Tablet 325 mg PO DAILY RF: 0 carvedilol [Coreg] 3.125 mg Tablet 3.125 mg PO BID RF: 0 hydrochlorothiazide 25 mg Tablet 25 mg PO DAILY RF: 0 Referrals: Mirza Mckinley MD [Physician] - See Instructions ( Please call the physician 's office to book the appointment to be seen within [3 to 4 weeks].) Jake Morrell MD [Physician] - See Instructions ( Please call the physician 's office to book the appointment to be seen within [4 weeks].) UNKNOWN, [Primary Care Provider] - See Instructions Post Discharge Care Plan Care Plan Goals: Discharge Care Plan Goals for Stroke You have been diagnosed with or have a high risk for a stroke, or a TIA ( transient ischemic attack). During a stroke, blood stops flowing to part of your brain. This can damage areas in the brain that control other parts of the body. Symptoms after a stroke depend on which part of the brain has been affected. Directions to Meet your Goals: 1. Diet: Based on your situation, your doctor will direct you to make changes in your diet. Some of the changes may include: * Reducing the amount of fat and cholesterol you eat * Don't add salt to your food. * Eat more fresh vegetables and fruits * Eat more lean proteins, such as fish, poultry, and beans and peas (legumes). Cut down on red meat & processed meats * Use low-fat dairy products * Limit vegetable oils and nut oils. Avoid any food that has hydrogenated listed in its ingredients. * Limit sweets and processed foods such as chips, cookies, and baked goods 2. Prevent Falls/Injury: You may be at risk of falling. Activity: * Keep your surrounding clutter free to help you walk more easily. * Your doctor and therapist may decide if you need an assistive device to walk safely. Shower/Bathing: * Test the water temperature with a hand or foot that was not affected by the stroke. * Use grab bars, a shower seat, a hand-held showerhead, and a long-handled brush. Getting Dressed: * Dress while sitting, starting with the affected side or limb. * Wear shirts that pull easily over your head. Wear pants or skirts with elastic waistbands. * Use zippers with loops attached to the pull tabs. 3. Lifestyle Modifications: * Take your medicines exactly as prescribed. Dont skip doses. * Begin an exercise program as directed by your doctor. You can benefit from simple activities such as walking or gardening. * Limit how much alcohol you drink. Men should have no more than 2 alcoholic drinks a day. Women should limit themselves to 1 alcoholic drink per day. * Know your cholesterol level. Follow your doctor's recommendations about how to keep cholesterol under control. * If you are a smoker, quit now. Joining a stop-smoking program will improve your chances of success. Ask your doctor for medicines or other methods to help you quit. * Learn stress management techniques to help you deal with stress in your home and work life. 4. Stroke Risk Factors: Once youve had a stroke, youre at greater risk for another one. Listed below are some other factors that can increase your risk for a stroke: * High blood pressure and High Cholesterol * Cigarette or cigar smoking * Diabetes * Carotid or other artery disease * Atrial fibrillation, atrial flutter, or other heart disease * Not being physically active * Obesity * Certain blood disorders such as sickle cell anemia * Drinking too much alcohol * Abusing street drugs * Race * Gender * Family history of stroke * Diet high in salty, fried, or greasy foods 5. Follow-up: * Keep your medical appointments. Close follow-up is important to stroke rehabilitation and recovery. * Some medicines require blood tests to check for progress or problems. Keep follow-up appointments for any blood tests ordered by your providers. Call 911 right away if you have: Weakness, tingling, or loss of feeling on one side of your face or body Sudden double vision or trouble seeing in one or both eyes Sudden trouble talking or slurred speech Trouble understanding others Sudden, severe headache Dizziness, loss of balance, or a sense of falling Blackouts or seizures F.A.S.T. is an easy way to remember the signs of stroke. When you see these signs, you know that you need to call 911 fast. F.A.S.T. stands for: * F is for face drooping. One side of the face is drooping or numb. When the person smiles, the smile is uneven. * A is for arm weakness. One arm is weak or numb. When the person lifts both arms at the same time, one arm may drift downward. * S is for speech difficulty. You may notice slurred speech or trouble speaking. The person can't repeat a simple sentence correctly when asked. * T is for time to call 911. If someone shows any of these symptoms, even if they go away, call 911 right away. Make note of the time the symptoms first appeared. Discharge Interventions Interventions: Discharge Planning - Case Management Last Done: 04/07/18 14:49 Status ED Status: Left Department
[2018-04-08 10:45] LABS: Baso % (Auto) 0.4 % (0.0-2.0); Eos # (Auto) 0.1 th/mm3 (0.0-0.4); Eos % (Auto) 1.3 % (0.0-4.0); Hematocrit 47.1 % (39.0-51.0); Hemoglobin 15.9 gm/dL (13.0-17.0); Lymph # (Auto) 1.2 th/mm3 (1.0-4.8); Lymph % (Auto) 14.9 % (9.0-44.0); Mean Corpuscular HGB Conc 33.8 % (32.0-36.0); Mean Corpuscular Hemoglobin 31.2 pg (27.0-34.0); Mean Corpuscular Volume 92.3 fL (80.0-100.0); Mean Platelet Volume 8.9 fL (7.0-11.0); Mono # (Auto) 0.9 th/mm3 (0.0-0.9); Mono % (Auto) 10.3 % (0.0-8.0); Neut # (Auto) 6.1 th/mm3 (1.8-7.7); Neut % (Auto) 73.1 % (16.0-70.0); Platelet Count 222 th/mm3 (150-450); Red Cell Distribution Width 13.1 % (11.6-17.2); White Blood Count 8.3 th/mm3 (4.0-11.0)
[2018-04-08 10:51] LABS: Activated Partial Thrombo Time 52.6 sec (23.4-31.7); INR 2.1 Ratio; Prothrombin Time 20.8 sec (9.8-11.6)
--- NOTE | 2018-04-08 11:10 | P.PNIM ---
Subjective Interval history: Patient doing okay and has no complaints wants to go to rehab soon. Physical Exam Vital signs: Last Vital Signs Temp 97.9 F 04/08/18 07:56 Pulse 81 04/08/18 08:48 Resp 16 04/08/18 07:56 BP 143/79 H 04/08/18 07:56 Pulse Ox 96 04/08/18 07:56 Intake & Output 04/06/18 04/07/18 04/08/18 04/09/18 06:59 06:59 06:59 06:59 Intake Total 1360 / 1360 1100 / 1100 1010 / 1010 Output Total 1575 / 1575 3300 / 3300 1600 / 1600 500 / 500 Balance -215 / -215 -2200 / -2200 -590 / -590 -500 / -500 Weight 68.3 kg 73.1 kg 73.1 kg Narrative: GENERAL: This is a well-nourished, well-developed patient, in no apparent distress. CARDIOVASCULAR: Regular rate and rhythm RESPIRATORY: Clear to auscultation. Breath sounds equal bilaterally. No wheezes , rales, or rhonchi. GASTROINTESTINAL: Abdomen soft, non-tender, nondistended. Normal active bowel sounds MUSCULOSKELETAL: Extremities without clubbing, cyanosis, or edema. NEURO: Alert & Oriented x3 to person, place, time, Moves all ext x4 Results Labs CBC & Chem 7: 04/08/18 08:57 04/07/18 06:15 Assessment and Plan (1) CVA (cerebral vascular accident): Code(s): I63.9 - Cerebral infarction, unspecified Status: Acute (2) Transient cerebral ischemia: Code(s): G45.9 - Transient cerebral ischemic attack, unspecified Status: Acute (3) Hypertensive emergency: Code(s): I16.1 - Hypertensive emergency Status: Acute (4) Elevated troponin: Code(s): R74.8 - Abnormal levels of other serum enzymes Status: Acute (5) Community acquired pneumonia: Code(s): J18.9 - Pneumonia, unspecified organism Status: Acute Plan 63 year old male admitted with hypertensive emergency, slurred speech, EKG changes and troponin elevation. 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 castro. Continue with OT, PT and speech therapy MRI of the brain on 04/04 shows small acute/subacute infarct the left occipital lobe INR pending today we will continue with heparin. Check a fasting liver profile and start statin Feverresolved Suspected community-acquired pneumonia with findings on chest x-ray with left basilar airspace disease Continue Levaquin and switch over to p.o. Clinically improved. Hypertensive emergencyresolved but with continued uncontrolled labile blood pressures Currently on maximum doses of Coreg, HCTZ, lisinopril, and Norvasc Will add hydralazine to the regimen. Hypokalemiareplete , continue magnesium supplements Diabetes mellitus type 2, labile Follow blood sugars Insulin sliding scale Diabetic diet Restarted metformin, hemoglobin A1c 6.8 Constipationstool softeners and bowel regimen DVT prophylaxis Coumadin Discharge Planning: To CIR when stable and when blood pressure better controlled. Progress Note: Quality Stroke Rehab Services Assessed: Activities of daily living assessment VTE Deep Vein Thrombosis/Pulmonary Embolism Present on Admission: No _ (1) CVA (cerebral vascular accident) Qualifiers: CVA mechanism: Precerebral and cerebral artery: Laterality of affected vessel: (2) Transient cerebral ischemia Qualifiers: Transient cerebral ischemia type:
[2018-04-08 11:14] LABS: Calcium 9.3 mg/dL (8.5-10.1); Carbon Dioxide 29.4 meq/L (21.0-32.0); Potassium 3.3 meq/L (3.5-5.1)
[2018-04-08] MEDS: hydrALAZINE 10 MG Tablet PO SCH ×2 (12:01→17:00)
[2018-04-08] MEDS: Sod Chloride 0.9% Inj 1,000 ML IV.CONT SCH (14:01)
[2018-04-08] MEDS: levoFLOXacin 750 MG Tablet PO SCH (16:02)
[2018-04-09 05:50] LABS: INR 2.2 Ratio; Prothrombin Time 22.2 sec (9.8-11.6)
[2018-04-09 06:08] LABS: Chol/HDL Ratio 4.43 Ratio; HDL Cholesterol 32.9 mg/dL (40.0-60.0)
[2018-04-09] MEDS ORDERED: hydrALAZINE 25 MG Tablet PO ONE (06:09)
[2018-04-09] MEDS: Insulin NovoLOG Aspart Correctional Sugar Inj SQ SCH ×4 (07:27→21:08)
[2018-04-09] MEDS: amLODIPine 10 MG Tablet PO SCH (08:01)
[2018-04-09] MEDS: hydroCHLOROthiazide 25 MG Tablet PO SCH (08:01)
[2018-04-09] MEDS: Carvedilol 12.5 MG Tablet PO SCH ×2 (08:02→20:54)
[2018-04-09] MEDS: hydrALAZINE 10 MG Tablet PO SCH (08:02)
[2018-04-09] MEDS: Senna/Docusate Sodium 8.6/50 MG Tablet PO SCH ×2 (08:02→20:54)
[2018-04-09] MEDS: Lisinopril 20 MG Tablet PO SCH (08:02)
[2018-04-09] MEDS: Lactobacillus Acidophilus/L. Spores Tablet PO SCH ×3 (08:02→17:16)
[2018-04-09] MEDS: Magnesium Oxide 400 MG Tablet PO SCH ×2 (08:02→20:54)
[2018-04-09] MEDS ORDERED: hydrALAZINE 10 MG Tablet PO ONE (08:45)
--- NOTE | 2018-04-09 11:40 | P.PNIM ---
Subjective Interval history: Doing okay with no concerns. No headaches. Wants to go to rehab soon. Physical Exam Vital signs: Last Vital Signs Temp 98 F 04/09/18 08:00 Pulse 60 04/09/18 09:00 Resp 12 04/09/18 11:07 BP 171/82 H 04/09/18 08:00 Pulse Ox 96 04/09/18 08:58 Intake & Output 04/07/18 04/08/18 04/09/18 04/10/18 06:59 06:59 06:59 06:59 Intake Total 1100 / 1100 1010 / 1010 1658 / 1658 Output Total 3300 / 3300 1600 / 1600 500 / 500 Balance -2200 / -2200 -590 / -590 1158 / 1158 Weight 73.1 kg 73.1 kg 73.1 kg Narrative: GENERAL: This is a well-nourished, well-developed patient, in no apparent distress. CARDIOVASCULAR: Regular rate and rhythm RESPIRATORY: Clear to auscultation. Breath sounds equal bilaterally. No wheezes , rales, or rhonchi. GASTROINTESTINAL: Abdomen soft, non-tender, nondistended. Normal active bowel sounds MUSCULOSKELETAL: Extremities without clubbing, cyanosis, or edema. NEURO: Alert & Oriented x3 to person, place, time, Moves all ext x4 Results Labs CBC & Chem 7: 04/08/18 08:57 04/08/18 08:57 Assessment and Plan (1) CVA (cerebral vascular accident): Code(s): I63.9 - Cerebral infarction, unspecified Status: Acute (2) Transient cerebral ischemia: Code(s): G45.9 - Transient cerebral ischemic attack, unspecified Status: Acute (3) Hypertensive emergency: Code(s): I16.1 - Hypertensive emergency Status: Acute (4) Elevated troponin: Code(s): R74.8 - Abnormal levels of other serum enzymes Status: Acute (5) Community acquired pneumonia: Code(s): J18.9 - Pneumonia, unspecified organism Status: Acute Plan 63 year old male admitted with hypertensive emergency, slurred speech, EKG changes and troponin elevation. Acute left medial posterior temporal occipital CVA with a history of old right MCA CVA per neurology On aspirin, and Coumadin, status post loop recorder with Dr. castro. Continue with OT, PT and speech therapy MRI of the brain on 04/04 shows small acute/subacute infarct the left occipital lobe INR 2,2, heparin discontinued Check a fasting liver profile and start statin Feverresolved Suspected community-acquired pneumonia with findings on chest x-ray with left basilar airspace disease Continue Levaquin and switch over to p.o. Clinically improved. Hypertensive emergencyresolved but with continued uncontrolled labile blood pressures Currently on maximum doses of Coreg, HCTZ, lisinopril, and Norvasc Will increase hydralazine dosing, will also discontinue Norvasc and start Procardia XL 90 mg p.o. daily Hypokalemiareplete , continue magnesium supplements Diabetes mellitus type 2, labile but improved Follow blood sugars Insulin sliding scale Diabetic diet Restarted metformin, hemoglobin A1c 6.8 Constipationstool softeners and bowel regimen DVT prophylaxis Coumadin Discharge Planning: To CIR when stable and when blood pressure better controlled in the next 24 hours. Progress Note: Quality Stroke Rehab Services Assessed: Activities of daily living assessment VTE Deep Vein Thrombosis/Pulmonary Embolism Present on Admission: No _ (1) CVA (cerebral vascular accident) Qualifiers: CVA mechanism: Precerebral and cerebral artery: Laterality of affected vessel: (2) Transient cerebral ischemia Qualifiers: Transient cerebral ischemia type:
[2018-04-09] MEDS: hydrALAZINE 25 MG Tablet PO SCH ×2 (12:13→17:16)
--- NOTE | 2018-04-09 16:11 | P.PNCA ---
Subjective Interval history: No CP or SOB, eating breakfast Medications and Allergies Active Medications: Active Medications Al Hydroxide/Mg Hydroxide (Milk Of Magnesia Liq) 30 ml PO Q12H PRN PRN Reason: Mild Constipation Aspirin (Ecotrin) 81 mg PO DAILY [facility] Last Admin: 04/09/18 08:01 Dose: 81 mg Bisacodyl (Dulcolax Supp) 10 mg RECTAL DAILY PRN PRN Reason: SEVERE CONSITIPATION Carvedilol (Coreg) 25 mg PO BID [facility] Last Admin: 04/09/18 08:02 Dose: 25 mg Dextrose (D50w Vial) 50 ml IV.PUSH UNSCH PRN PRN Reason: PER HYPOGLYCEMIA PROTOCOL Glucagon (Glucagon Inj) 1 mg OTHER PRN PRN PRN Reason: for Hypoglycemia Protocol Hydralazine HCl (Apresoline) 25 mg PO TID [facility] Last Admin: 04/09/18 12:13 Dose: 25 mg Hydrochlorothiazide (Hydrodiuril) 25 mg PO DAILY [facility] Last Admin: 04/09/18 08:01 Dose: 25 mg Nicardipine/Sodium Chloride (Cardene 20 Mg/Ns 200 Ml Premix) 20 mg in 200 mls @ 50 mls/hr IV.SIG TITRATE PRN; Protocol PRN Reason: PER PROTOCOL Last Titration: 04/04/18 08:39 Dose: 5 mg/hr, 50 mls/hr Sodium Chloride (Ns Inj) 1,000 mls @ 30 mls/hr IV.CONT .Q24H [facility] Last Admin: 04/08/18 14:01 Dose: Not Given Insulin Aspart (Novolog Insulin Correctional Sugar Inj) 0 unit SQ ACHS [facility]; Protocol Last Admin: 04/09/18 12:12 Dose: 3 unit Lactobacillus Acidophilus (Lactinex) 1 tab PO TID [facility] Last Admin: 04/09/18 12:13 Dose: 1 tab Lactulose (Lactulose Liq) 30 ml PO DAILY PRN PRN Reason: SEVERE CONSITIPATION Levofloxacin (Levaquin) 750 mg PO DAILY@1700 [facility] Last Admin: 04/08/18 16:02 Dose: 750 mg Lisinopril (Prinivil) 40 mg PO DAILY [facility] Last Admin: 04/09/18 08:02 Dose: 40 mg Magnesium Oxide (Mag-Ox) 400 mg PO BID [facility] Last Admin: 04/09/18 08:02 Dose: 400 mg [facility] Admin: 04/09/18 08:02 Dose: 500 mg Miscellaneous (Pill Splitter) 1 each [facility] Nifedipine (Procardia Xl) 90 mg PO DAILY [facility] Last Admin: 04/09/18 08:44 Dose: 90 mg Ondansetron HCl (Zofran Inj) 4 mg IV.PUSH Q6H PRN PRN Reason: NAUSEA OR VOMITING Pravastatin Sodium (Pravachol) 20 mg PO [facility] Last Admin: 04/08/18 21:30 Dose: 20 mg Senna/Docusate Sodium (Claire-Colace) 1 tab PO BID [facility] Last Admin: 04/09/18 08:02 Dose: 1 tab Sennosides (Senokot) 17.2 mg PO Q12H PRN PRN Reason: Moderate Constipation Sodium Chloride (Ns Flush) 2 ml IV.FLUSH PRN PRN PRN Reason: FLUSH AFTER USING IV ACCESS Last Admin: 04/01/18 12:47 Dose: 2 ml Warfarin Sodium (Coumadin) 5 mg PO DAILY@1600 [facility] Last Admin: 04/08/18 16:01 Dose: 5 mg Allergies Allergy/AdvReac Type Severity Reaction Status Date / Time No Known Allergies Allergy Verified 04/01/18 12:15 Home Medications Medication Instructions Recorded Confirmed Type aspirin 325 mg PO DAILY 04/01/18 04/08/18 History carvedilol [Coreg] 3.125 mg PO BID 04/01/18 04/08/18 History hydrochlorothiazide 25 mg PO DAILY 04/01/18 04/08/18 History metformin 500 mg PO BID 04/01/18 04/08/18 History Physical Exam Vital signs: Vital Signs 04/08/18 20:00 04/09/18 00:00 04/09/18 04:00 Temperature 98.0 F 97.7 F 99.2 F Pulse Rate 72 69 102 H Respiratory Rate 18 20 17 Blood Pressure 164/77 H 174/85 H 187/80 H Pulse Oximetry 96 99 94 L 04/09/18 07:00 04/09/18 08:00 04/09/18 08:58 Temperature 98 F Pulse Rate 76 Respiratory Rate 12 17 Blood Pressure 171/82 H Pulse Oximetry 96 96 04/09/18 09:00 04/09/18 11:07 04/09/18 12:00 Temperature 97.7 F Pulse Rate 60 72 Respiratory Rate 12 17 Blood Pressure 144/69 H Pulse Oximetry 97 Intake & Output 04/08/18 04/09/18 04/09/18 18:59 06:59 18:59 Intake Total 1658 / 1658 Output Total 500 / 500 Balance 1158 / 1158 Weight 161 lb 2.526 oz Intake: IV 98 / 98 Heparin/D5W 25,000 U/250 mL 25, 98 / 98 000 unit In 250 ml @ 1,000 UNITS/HR 10 mls/hr IV.CONT TITRATE PRN Rx#:[id number] Oral 1560 / 1560 Output: Urine 500 / 500 Other: # Voids 4 4 Date of Last Bowel Movement 04/08/18 04/08/18 04/08/18 # Bowel Movements 1 Narrative: GENERAL: In no apparent distress. CARDIOVASCULAR: Regular rate and rhythm RESPIRATORY: Clear to auscultation. Breath sounds equal bilaterally. No wheezes , rales, or rhonchi. GASTROINTESTINAL: Abdomen soft, non-tender, nondistended. Normal active bowel sounds MUSCULOSKELETAL: Extremities without edema. NEURO: Grossly intact. CHEST: Wound stable. Results 04/08/18 08:57 04/08/18 08:57 Coagulation 04/08/18 04/09/18 Range/Units 08:57 04:29 PT 20.8 H 22.2 H (9.8-11.6) sec APTT 52.6 H D (23.4-31.7) sec Lipids 04/09/18 Range/Units 04:29 Triglycerides 170 H (42-150) mg/dL Cholesterol 146 (120-200) mg/dL HDL Cholesterol 32.9 L (40.0-60.0) mg/dL Cholesterol/HDL Ratio 4.43 Ratio CBC 04/08/18 Range/Units 08:57 WBC 8.3 (4.0-11.0) th/mm3 RBC 5.10 (4.50-5.90) mil/mm3 Hgb 15.9 D (13.0-17.0) gm/dL Hct 47.1 (39.0-51.0) % Plt Count 222 (150-450) th/mm3 Neut # (Auto) 6.1 (1.8-7.7) th/mm3 Lymph # (Auto) 1.2 (1.0-4.8) th/mm3 [place] # (Auto) 0.9 (0.0-0.9) th/mm3 Eos # (Auto) 0.1 (0.0-0.4) th/mm3 Baso # (Auto) 0.0 (0.0-0.2) th/mm3 Comprehensive Metabolic Panel 04/08/18 Range/Units 08:57 Sodium 137 (136-145) meq/L Potassium 3.3 L (3.5-5.1) meq/L Chloride 97 L (98-107) meq/L Carbon Dioxide 29.4 (21.0-32.0) meq/L BUN 24 H (7-18) mg/dL Creatinine 1.13 (0.60-1.30) mg/dL Calcium 9.3 (8.5-10.1) mg/dL Intake and Output 04/09/18 04/09/18 04/09/18 06:59 14:59 22:59 Other: # Voids 4 Date of Last Bowel Movement 04/08/18 Weight 161 lb 2.526 oz Assessment and Plan - Assessment (1) CVA (cerebral vascular accident) Code(s): I63.9 - Cerebral infarction, unspecified Status: Acute (2) Transient cerebral ischemia Code(s): G45.9 - Transient cerebral ischemic attack, unspecified Status: Acute (3) Hypertensive emergency Code(s): I16.1 - Hypertensive emergency Status: Acute (4) Elevated troponin Code(s): R74.8 - Abnormal levels of other serum enzymes Status: Acute - Plan Chest wound stable. Start long-term monitoring of his device. Still hypertensive, continue titrating antihypertensive tx. Continue anticoagulation with warfarin. Patient to follow up with Dr. Simon post discharge from the hospital. Progress Note: Quality - Stroke Rehab Services Assessed: Activities of daily living assessment
[2018-04-09] MEDS: Sod Chloride 0.9% Inj 1,000 ML IV.CONT SCH (16:16)
--- NOTE | 2018-04-09 16:38 | P.DCO ---
Diagnosis (1) CVA (cerebral vascular accident): Status: Acute Home Health Nursing Order: Nursing assessment with vital signs Instructions: Lab draw for PT INR on FridayApr [address] Mirza Mckinley Case Management Consult Case Management Consult-Home Health: Yes I have seen patient Pj Healy on 04/09/18. My clinical findings support the need for the requested home health care services because: High risk of falls I certify that my clinical findings support that this patient is homebound because: Unsteady gait/balance _ (1) CVA (cerebral vascular accident) Qualifiers: CVA mechanism: Laterality of affected vessel: Precerebral and cerebral artery:
[2018-04-09] MEDS: levoFLOXacin 750 MG Tablet PO SCH (17:16)
[2018-04-10 05:19] VITALS: RESP 18
[2018-04-10 06:03] LABS: INR 2.2 Ratio; Prothrombin Time 21.8 sec (9.8-11.6)
[2018-04-10 06:17] LABS: Calcium 8.9 mg/dL (8.5-10.1); Carbon Dioxide 28.1 meq/L (21.0-32.0)
[2018-04-10 08:09] VITALS: BP 152/72; PULSE 70; TEMP 98; O2SAT 93
[2018-04-10] MEDS: Magnesium Oxide 400 MG Tablet PO SCH (09:15)
[2018-04-10] MEDS: Senna/Docusate Sodium 8.6/50 MG Tablet PO SCH (09:16)
[2018-04-10] MEDS: Lisinopril 20 MG Tablet PO SCH (09:16)
[2018-04-10] MEDS: Lactobacillus Acidophilus/L. Spores Tablet PO SCH (09:16)
[2018-04-10] MEDS: hydrALAZINE 25 MG Tablet PO SCH (09:16)
[2018-04-10] MEDS: hydroCHLOROthiazide 25 MG Tablet PO SCH (09:16)
[2018-04-10] MEDS: Insulin NovoLOG Aspart Correctional Sugar Inj SQ SCH (09:17)
[2018-04-10] MEDS: Carvedilol 12.5 MG Tablet PO SCH (09:17)
--- NOTE | 2018-04-10 11:01 | P.DS ---
DS: Providers Date of admission: 04/01/18 14:48 Primary care physician: UNKNOWN Consults: 04/06/18 12:40 HUB Only Consult Order Routine Consulting Provider: [facility] 04/06/18 12:44 HUB Only Consult Order Routine Consulting Provider: Eul[facility],Agency 04/06/18 12:47 HUB Only Consult Order Routine Consulting Provider: Gregorio Perry Brief History from admission: Mr. Healy is a 63-year-old male. He came in secondary to altered mental status and slurred speech. He was noted to have hypertensive urgency/emergency with a blood pressure of 240 systolic. EKG changes are noted and also slight elevation in troponin. Etiology for his EKG changes, troponin elevation, and neurologic changes is likely related to his hypertensive emergency episode. Blood pressures have improved. When I am visiting with him his blood pressure is down to 160 systolic. He has resolution of his neural logic symptoms. No other complaints. He says this is happened before in the past. DS: Diagnosis Discharge Diagnosis (1) CVA (cerebral vascular accident): Status: Acute (2) Hypertensive emergency: Status: Acute (3) Community acquired pneumonia: Status: Acute DS: Summary 63-year-old white male was admitted for hypertensive emergency associate with slurred speech and was found to have TIA that evolved into a acute left medial posterior temporal occipital CVA. 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 Mirza Mckinley. Recommendations were to place the patient on aspirin along with heparin with Coumadin. Heparin was discontinued when INR was greater than 2. PT OT and speech therapy was initiated during the hospitalization. In addition patient had a loop recorder placed by Dr. morrell during the hospitalization. Patient had his fever spike during the hospitalization was suspected to have also Community acquired pneumonia with findings on chest x-ray of left basilar airspace disease and Levaquin was started. He initially presented with hypertensive emergency and adjustment of his home medication doses was done with addition of new antihypertensives. He is sent home on maximum doses of Coreg, HCTZ, lisinopril, and Procardia along with new prescription for hydralazine. Hypokalemia was repleted during the hospitalization. His blood sugars was controlled with sliding scale insulin and restarting metformin with hemoglobin A1c was 6.8. Initially, it was recommended patient be transition to [facility] however due to his improvement with his gait and balance patient was transitioned home with home health care with continued monitoring of blood pressure and lab draws for INR with outpatient follow-up to Dr. ALONZO. He states that he does not have a primary care physician referral was made to Dr. Diehl Time Spent with Patient Total time spent providing and/or coordinating discharge services: Less than 30 minutes Quality: Stroke Last date observed well: 04/01/18 Last time observed well: 09:30 Rehab Services Assessed: Activities of daily living assessment Quality: VTE Deep Vein Thrombosis/Pulmonary Embolism Present on Admission: No Exam Narrative Exam Narrative: GENERAL: This is a well-nourished, well-developed patient, in no apparent distress. CARDIOVASCULAR: Regular rate and rhythm without murmurs, gallops, or rubs. RESPIRATORY: Clear to auscultation. Breath sounds equal bilaterally. No wheezes , rales, or rhonchi. GASTROINTESTINAL: Abdomen soft, non-tender, nondistended. Normal active bowel sounds MUSCULOSKELETAL: Extremities without clubbing, cyanosis, or edema. NEURO: Alert & Oriented x4 to person, place, time, situation. Moves all ext x4 Results Labs on day of discharge: Labs from last 24 hours 04/10/18 04/10/18 04/10/18 08:03 05:24 05:24 PT 21.8 H INR 2.2 Sodium 138 Potassium 4.0 Chloride 100 Carbon Dioxide 28.1 Anion Gap 10 BUN 25 H Creatinine 1.09 Estimated GFR 68 L POC Glucose 202 H Random Glucose 184 H Calcium 8.9 04/09/18 04/09/18 04/09/18 20:59 16:12 12:06 PT INR Sodium Potassium Chloride Carbon Dioxide Anion Gap BUN Creatinine Estimated GFR POC Glucose 160 H 211 H 241 H Random Glucose Calcium Impressions ITS Impressions Head CT 04/01/18 12:15 CONCLUSION: 1. Chronic ischemic changes and old right cerebellar infarct. 2. No evidence of acute infarct, hemorrhage, mass or edema. Report was called by Dr. Lucas to the ordering ED physician at [id number].] Head CTA 04/01/18 12:15 CONCLUSION: No evidence of proximal thrombus or significant steno-occlusive disease. Report was called by [Shayy to Dr. Mckinley at [id number]. ] Neck CTA 04/01/18 12:15 CONCLUSION: 1. Moderate calcified and noncalcified plaque in the left carotid bifurcation with moderate narrowing at the origin of the internal carotid artery measuring 50%. 2. Widely patent right carotid bifurcation status post endarterectomy. 3. Symmetric patent vertebral arteries. Head MRI 04/04/18 00:00 CONCLUSION: 1. Small acute/subacute infarct of the left occipital lobe is not significantly changed. 2. No new infarct has developed in the interim. No bleed. 3. 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 Chest X-Ray 04/05/18 00:00 CONCLUSION: Cardiomegaly with left basilar airspace disease. Differential diagnosis includes atelectasis and pneumonia. Small effusions also noted. Questionable early infiltrate right upper lobe as well. Discharge Plan Discharge Disposition Patient Disposition: /Home Health Service Discharge Condition Condition: Good Discharge Order Discharge Orders: Discharge Order (Routine); Ordered 04/10/18 Ordered By: Jennifer Dailey Discharge Details Anticipated Discharge Date: 04/10/18 Physicians Team ED Provider: Telly Peterson Primary Care Provider: UNKNOWN, Attending Provider: Jennifer Dailey [facility] ; [facility] ; [facility],Agency Rxs /Orders / Referrals /Forms Prescriptions: New warfarin [Coumadin] 5 mg Tablet 5 mg PO DAILY@1600 Qty: 30 RF: 0 levofloxacin 750 mg Tablet 750 mg PO DAILY@1700 Qty: 3 RF: 0 carvedilol [Coreg] 12.5 mg Tablet 25 mg PO BID Qty: 60 RF: 0 nifedipine 90 mg Tablet Extended Release 90 mg PO DAILY Qty: 30 RF: 0 lisinopril 20 mg Tablet 40 mg PO DAILY Qty: 30 RF: 0 hydralazine 25 mg Tablet 25 mg PO TID Qty: 90 RF: 0 aspirin 81 mg Tablet,Delayed Release (Dr/Ec) 81 mg PO DAILY Qty: 30 RF: 0 pravastatin 20 mg Tablet 20 mg PO HS Qty: 30 RF: 0 Continue metformin 500 mg Tablet 500 mg PO BID RF: 0 hydrochlorothiazide 25 mg Tablet 25 mg PO DAILY RF: 0 Discontinued aspirin 325 mg Tablet 325 mg PO DAILY RF: 0 carvedilol [Coreg] 3.125 mg Tablet 3.125 mg PO BID RF: 0 Referrals: Mirza Mckinley MD [Physician] - See Instructions ( Please call the physician 's office to book the appointment to be seen within [3 to 4 weeks].) [facility], [Agency] - See Instructions (Nurse will see you on Friday and will call with time of visit.) Jake Morrell MD [Physician] - See Instructions ( Please call the physician 's office to book the appointment to be seen within [4 weeks].) UNKNOWN, [Primary Care Provider] - See Instructions Discharge Instructions Patient Printed Instructions: Lisinopril (By mouth), Nifedipine (By mouth), Warfarin (By mouth), Aspirin (By mouth), Pravastatin (By mouth), Hydralazine ( By mouth), Levofloxacin (By mouth), Carvedilol (By mouth), Ischemic Stroke (DC) Post Discharge Care Plan Care Plan Goals: Discharge Care Plan Goals for Stroke You have been diagnosed with or have a high risk for a stroke, or a TIA ( transient ischemic attack). During a stroke, blood stops flowing to part of your brain. This can damage areas in the brain that control other parts of the body. Symptoms after a stroke depend on which part of the brain has been affected. Directions to Meet your Goals: 1. Diet: Based on your situation, your doctor will direct you to make changes in your diet. Some of the changes may include: * Reducing the amount of fat and cholesterol you eat * Don't add salt to your food. * Eat more fresh vegetables and fruits * Eat more lean proteins, such as fish, poultry, and beans and peas (legumes). Cut down on red meat & processed meats * Use low-fat dairy products * Limit vegetable oils and nut oils. Avoid any food that has hydrogenated listed in its ingredients. * Limit sweets and processed foods such as chips, cookies, and baked goods 2. Prevent Falls/Injury: You may be at risk of falling. Activity: * Keep your surrounding clutter free to help you walk more easily. * Your doctor and therapist may decide if you need an assistive device to walk safely. Shower/Bathing: * Test the water temperature with a hand or foot that was not affected by the stroke. * Use grab bars, a shower seat, a hand-held showerhead, and a long-handled brush. Getting Dressed: * Dress while sitting, starting with the affected side or limb. * Wear shirts that pull easily over your head. Wear pants or skirts with elastic waistbands. * Use zippers with loops attached to the pull tabs. 3. Lifestyle Modifications: * Take your medicines exactly as prescribed. Dont skip doses. * Begin an exercise program as directed by your doctor. You can benefit from simple activities such as walking or gardening. * Limit how much alcohol you drink. Men should have no more than 2 alcoholic drinks a day. Women should limit themselves to 1 alcoholic drink per day. * Know your cholesterol level. Follow your doctor's recommendations about how to keep cholesterol under control. * If you are a smoker, quit now. Joining a stop-smoking program will improve your chances of success. Ask your doctor for medicines or other methods to help you quit. * Learn stress management techniques to help you deal with stress in your home and work life. 4. Stroke Risk Factors: Once youve had a stroke, youre at greater risk for another one. Listed below are some other factors that can increase your risk for a stroke: * High blood pressure and High Cholesterol * Cigarette or cigar smoking * Diabetes * Carotid or other artery disease * Atrial fibrillation, atrial flutter, or other heart disease * Not being physically active * Obesity * Certain blood disorders such as sickle cell anemia * Drinking too much alcohol * Abusing street drugs * Race * Gender * Family history of stroke * Diet high in salty, fried, or greasy foods 5. Follow-up: * Keep your medical appointments. Close follow-up is important to stroke rehabilitation and recovery. * Some medicines require blood tests to check for progress or problems. Keep follow-up appointments for any blood tests ordered by your providers. Call 911 right away if you have: Weakness, tingling, or loss of feeling on one side of your face or body Sudden double vision or trouble seeing in one or both eyes Sudden trouble talking or slurred speech Trouble understanding others Sudden, severe headache Dizziness, loss of balance, or a sense of falling Blackouts or seizures F.A.S.T. is an easy way to remember the signs of stroke. When you see these signs, you know that you need to call 911 fast. F.A.S.T. stands for: * F is for face drooping. One side of the face is drooping or numb. When the person smiles, the smile is uneven. * A is for arm weakness. One arm is weak or numb. When the person lifts both arms at the same time, one arm may drift downward. * S is for speech difficulty. You may notice slurred speech or trouble speaking. The person can't repeat a simple sentence correctly when asked. * T is for time to call 911. If someone shows any of these symptoms, even if they go away, call 911 right away. Make note of the time the symptoms first appeared. Status ED Status: Left Department
== END 2018-04-10 12:48 | disposition home health service (06) | DRG 40 ==
LOC: NEPC 12:10 → NEDA 14:48 → HIMC 16:00 → N05 04-04 12:55
PROVIDERS: ADMIT Family Medicine; ATTEND Family Medicine
PROC: LOOPREV (2018-04-06 14:45)
DX: E11.9 Type 2 diabetes mellitus without complications; R47.01 Aphasia; Z78.1 Physical restraint status; E78.00 Pure hypercholesterolemia, unspecified; Z86.73 Personal history of transient ischemic attack (TIA), and cerebral infarction without residual deficits; E87.6 Hypokalemia; I11.9 Hypertensive heart disease without heart failure; K59.00 Constipation, unspecified; G93.40 Encephalopathy, unspecified; Z79.82 Long term (current) use of aspirin; R74.8 Abnormal levels of other serum enzymes; R29.700 NIHSS score 0; J18.9 Pneumonia, unspecified organism; Z79.84 Long term (current) use of oral hypoglycemic drugs; I63.9 Cerebral infarction, unspecified; I16.1 Hypertensive emergency
CPT/HCPCS: 33282; 33285; 36600; 70450; 70496; 70498; 70551; 70553; 71010; 71045; 80048; 80053; 80061; 80307; 81001; 82550; 82607; 82805; 82948; 82962; 83036; 83735; 84100; 84132; 84443; 84484; 85025; 85027; 85610; 85651; 85652; 85730; 86038; 86592; 87641; 92526; 92610; 93005; 93225; 93306; 95819; 97110; 97116; 97163; 97166; 99152; 99291; A9585; C1764; G0195; J0360; J0690; J1644; J1815; J1956; J2060; J2250; J3010; J3480; J7030; J7050; Q9967